=== PATIENT | female | born 1965 | race Caucasian/White ===

== ENCOUNTER 2016-07-08 12:30 | Inpatient (IN) | payer SELFPAY ==
[~2016-07-08] VITALS: Ht 175.3 cm; Wt 64.4 kg
[2016-07-08] MEDS: VITAMIN E 400 INTERNATIONAL UNITS CAP PO SCH (09:00)
[2016-07-08 13:01] LABS: BASO % 0.4 % (0.0-1.0); EOS # 0.2 K/mm3 (0.0-0.50); EOS % 1.6 % (0.0-3.0); LARGE UNSTAINED CELL # 0.2 K/mm3 (0.0-0.4); LARGE UNSTAINED CELL % 2.2 % (0.0-4.0); LYMPH # 2.4 K/mm3 (1.5-4.5); LYMPH % 25.6 % (24.0-44.0); MEAN CORPUSCULAR HEMOGLOBIN 33.4 pg (27.0-33.0); MEAN CORPUSCULAR HGB CONC 34.6 g/dl (32.0-36.5); MEAN CORPUSCULAR VOLUME 96.5 fl (80.0-96.0); MONO # 0.5 K/mm3 (0.0-0.8); MONO % 5.1 % (0.0-5.0); NEUTROPHILS # 6.1 K/mm3 (1.8-7.7); NEUTROPHILS % 65.1 % (36.0-66.0); PLATELET COUNT, AUTOMATED 186 k/mm3 (150-450); RED CELL DISTRIBUTION WIDTH 12.1 % (11.5-14.5); WHITE BLOOD COUNT 9.3 K/mm3 (4.0-10.0)
[2016-07-08 13:08] LABS: INR 0.94
[2016-07-08 13:20] LABS: ANION GAP 11 MEQ/L (8-16); BLOOD UREA NITROGEN 25 MG/DL (7-18); CALCIUM LEVEL 9.5 MG/DL (8.5-10.1); CARBON DIOXIDE LEVEL 27 MEQ/L (21-32); CHLORIDE LEVEL 102 MEQ/L (98-107); CREATININE FOR GFR 1.02 MG/DL (0.55-1.02); GLOMERULAR FILTRATION RATE > 60.0 (>51); GLUCOSE, FASTING 133 MG/DL (70-105); POTASSIUM SERUM 4.2 MEQ/L (3.5-5.1); SODIUM LEVEL 140 MEQ/L (136-145)
--- NOTE | 2016-07-08 13:34 | REP ---
CHEST X-RAY: Single view. HISTORY: CVA less than 4.5 hours. Comparison chest x-ray is from January 11, 2016. FINDINGS: EKG monitoring electrodes overlie the chest. The heart is moderately enlarged unchanged since the prior study of January 11, 2016. Pulmonary vasculature is not increased. Pleural angles are sharp. No infiltrate is seen. IMPRESSION: Moderate cardiomegaly. No evidence of pulmonary edema or pleural effusion. Signed by Isaias Loyd MD 07/08/2016 02:34 P
--- NOTE | 2016-07-08 13:43 | REP ---
CT brain without contrast 07/08/2016 Indication CVA less than 4.5 hours Comparison: CT brain 10/10/2011 The ventricles are of normal size and configuration. There is no intracranial hemorrhage or extra-axial fluid collection. There is no midline shift or mass effect. The skull is without fracture. The right mastoid sinuses are hypoplastic. Visualized portions of the paranasal sinuses and left mastoid sinuses are clear. Impression: no acute intracranial pathology or hemorrhage. Case discussed with Bouchra in ED at 127 pm om 07/08/16, who will give report to Dr. Bahena Signed by Radha Wakefield MD 07/08/2016 01:34 P
[2016-07-08] MEDS ORDERED: ASPIRIN 325 MG TAB As Ordered ONE (14:12)
[2016-07-08] MEDS ORDERED: FURO20TA2 PO (14:40)
[2016-07-08] MEDS ORDERED: NATU400T PO (14:40)
[2016-07-08] MEDS ORDERED: DIGO0.12 PO (14:40)
[2016-07-08] MEDS ORDERED: CARV6.25 PO (14:40)
[2016-07-08] MEDS ORDERED: VITMTA PO (14:40)
[2016-07-08] MEDS ORDERED: CO Q1CAP PO (14:40)
[2016-07-08] MEDS ORDERED: POTA10CA PO (14:40)
[2016-07-08] MEDS ORDERED: SPIR25TA2 PO (14:40)
--- NOTE | 2016-07-08 16:30 | HPEPDOC ---
General Date of Admission 07/08/2016 Chief Complaint The patient is a 50-year-old female admitted with a reason for visit of Stroke Symptoms. Source: Patient, Family History of Present Illness PCP: The only doctor she sees is her service dispatcher in [place] Dr. Mandujano Ms. Torre is a 50-year-old female who states that when she was going to get in the shower this morning at approximately 9 AM she realized that she was unable to figure out how to turn on the shower, and she did not understand why she would suddenly lost this knowledge to do so. At about that same time she realized that her right arm was not working correctly, she had significant weakness in her right hand, especially mat cutter. She then was going to call out to her , but was unable to speak, only noise came out. She states that her mind was working perfectly well, but she was just unable to speak. At this time she was now able to operate the shower, therefore she decided to proceed with a shower noting that she had to use only her left hand for shampoo, as right hand was unable to perform the tasks. After showering, she was still unable to speak , and hoping that this will go away she just went downstairs to watch TV. Fortunately for her, her symptoms did improve, and her right hand had returned to normal, but she still has some aphasia, therefore she was brought to the ED by her and daughter at approximately 12:[address] of the head without contrast was negative, MRI/MRA is pending. Otherwise, she denies any loss of sensation, she denies any gait abnormalities, she denies any lightheadedness or presyncopal symptoms. She does admit to having seen auras for about a half hour while she was here in the ED, but this has now resolved as well. Home Medications Scheduled (Co Q-10) 100 Mg Cap 100 MG PO DAILY (Reported) Alpha Tocopheryl Acid Succinat (Vitamin E) 400 Unit Tab 400 UNIT PO DAILY ( Reported) Carvedilol (Carvedilol) 6.25 Mg Tab 6.25 MG PO BID (Reported) Digoxin (Digoxin) 0.125 Mg Tab 0.125 MG PO QPM (Reported) TAKES AT 1600 Furosemide (Furosemide) 20 Mg Tab 20 MG PO DAILY (Reported) Multivitamins *[facility] STOCKED* (Thera M Plus *[facility] STOCKED*) 1 Tab Tab 1 TAB PO DAILY (Reported) Potassium Chloride (Klor-Con M10) 10 Meq Tabcr 10 MEQ PO DAILY (Reported) Spironolactone (Spironolactone) 25 Mg Tab 25 MG PO DAILY (Reported) Allergies Coded Allergies: No Known Drug Allergy (Unverified Allergy, Unknown, 07/08/16) Past Medical History Medical History The patient is unclear as to the exact name of her medical diagnoses, but she has "cardiomyopathy" and "heart failure". She was told that she had a very low ejection fraction, and she is supposed to get a defibrillator. This was told her in December 2015, she has been trying to get insurance so that she can get a defibrillator since that time. Her most recent echocardiogram was performed at [facility] in December 2015 as well. She has been told in the past that she has any irregular heartbeat. Surgical History Tubal ligation, tonsils Family History Family History She has a brother who also had cardiomyopathy, who had a heart transplant surgery and then at the age of 61. She has a sister who had a stroke at approximately the age of 50. Her father had heart problems as well as lung cancer. 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 Review of Symptoms Constitutional: Denies: Chills, Fever, Night Sweats Eyes: Denies: Pain, Vision change ENT: Denies: Ear Pain, Head Aches Skin: Denies: Breakdown, Lesions, Rash Pulmonary: Denies: Cough, Dyspnea Cardiovascular: Denies: Chest Pain, Lt Headedness, Orthopnea, Palpitations, Paroxysmal Noc. Dyspnea Gastrointestinal: Denies: Abdominal Pain, Diarrhea, Nausea, Vomiting Neurological: Reports: Change in speech (she was completely aphasic this morning. Now she can speak fairly well, but does have difficulty finding words) , Weakness (in the right hand), Denies: Confusion, Numbness, Seizures Psych: Reports: Mood Normal, Denies: Depression, Memory Issues Physical Examination General Exam: Positive: Alert, Cooperative, No Acute Distress Eye Exam: Positive: Conjunctiva & lids normal, EOMI, PERRLA, Negative: Sclera icteric ENT Exam: Positive: Atraumatic, Mucous membr. moist/pink, Nares Patent, Pharynx Normal, Tongue Midline Neck Exam: Positive: Supple, Negative: JVD, thyromegaly Chest Exam: Positive: Clear to auscultation, Normal air movement Heart Exam: Positive: Normal S1, Normal S2, Other (she does have a lateral chest wall heave), Rate Normal, Regular Rhythm (with multiple PVCs), Negative: Murmurs, Rubs Telemetry: Positive: No significant arrhythmia Abdomen Exam: Positive: Normal bowel sounds, Soft, Negative: Hepatospenomegaly Extremity Exam: Positive: Normal pulses, Negative: Clubbing, Cyanosis, Edema Skin Exam: Positive: Nl turgor and temperature, Negative: Breakdown, Lesion Neuro Exam: Positive: Other (finger to nose and heel to rockwell are appropriate. Visual garcia are intact to confrontation. Extraocular movements are intact. Pupils are equally reactive to light and accommodation. Tongue is midline. Cranial nerves II through XII are normal. She does not have a pronator drift. Babinski's are absent. Muscle strength is 5 out of 5 in all extremities, and sensation is intact throughout.), Reflexes 2+ (in the triceps, brachioradialis, biceps, patellar bilaterally.), Negative: Normal Speech (approximately 80-90% of her words are clear and accurate, however occasionally she has difficulty finding a word.) Psych Exam: Positive: Memory Intact, Mental status NL, Mood NL, Oriented x 3, Negative: Anxiety Vital Signs Blood pressure is 112/91, pulse 80, respirations 18, temperature 97.4, pulse ox 97% on room air, weight 65 kg, height 5 feet 9 inches, BMI 21 Laboratory Data Labs 24H Laboratory Tests 2 07/08/16 12:50: Activated Partial Thromboplast Time 24.7L, Anion Gap 11, White Blood Count 9.3, Red Blood Count 4.96, Hemoglobin 16.6H, Hematocrit 47.9H, Mean Corpuscular Volume 96.5H, Mean Corpuscular Hemoglobin 33.4H, Mean Corpuscular Hemoglobin Concent 34.6, Red Cell Distribution Width 12.1, Platelet Count 186, Neutrophils (%) (Auto) 65.1, Lymphocytes (%) (Auto) 25.6, Monocytes (%) (Auto) 5.1H, Eosinophils (%) (Auto) 1.6, Basophils (%) (Auto) 0.4, Neutrophils # (Auto) 6.1, Lymphocytes # (Auto) 2.4, Monocytes # (Auto) 0.5, Eosinophils # (Auto) 0.2, Basophils # (Auto) 0.0, Blood Urea Nitrogen 25H, Creatinine 1.02, Sodium Level 140, Potassium Level 4.2, Chloride Level 102, Carbon Dioxide Level 27, Calcium Level 9.5, Glomerular Filtration Rate > 60.0, Large Unclassified Cells # 0.2, Large Unclassified Cells % 2.2, Prothromb Time International Ratio 0.94, Prothrombin Time 12.7 07/08/16 13:04: Bedside Glucose (Misc Panel) 127H CBC/BMP Laboratory Tests 07/08/16 12:50 Calcium Level 9.5, Red Blood Count 4.96, Mean Corpuscular Volume 96.5 H, Mean Corpuscular Hemoglobin 33.4 H, Mean Corpuscular Hemoglobin Concent 34.6, Red Cell Distribution Width 12.1, Neutrophils (%) (Auto) 65.1, Lymphocytes (%) (Auto ) 25.6, Monocytes (%) (Auto) 5.1 H, Eosinophils (%) (Auto) 1.6, Basophils (%) ( Auto) 0.4, Neutrophils # (Auto) 6.1, Lymphocytes # (Auto) 2.4, Monocytes # (Auto ) 0.5, Eosinophils # (Auto) 0.2, Basophils # (Auto) 0.0 Assessment/Plan Problems: (1) Aphasia Status: Acute (2) CVA (cerebral vascular accident) Status: Acute (3) Cardiomyopathy Status: Chronic (4) Heart failure Status: Chronic Plan / VTE VTE Prophylaxis Ordered?: Yes (teds and sequentials) Plan Plan Will admit the patient to PCU for cardiac monitoring. As she is not taking aspirin at home we will start her on 81 mg daily, she already received 325 [address] in the ED[address] without contrast was negative, MRI/MRA is pending, will order an echocardiogram, and start her on a statin. Coagulopathy studies have been ordered as well as she is younger than 60 years old. She is on spironolactone, potassium, digoxin, carvedilol, and furosemide at home, and we will keep her on all of herhome medications, as these medications are really for her heart failure and cardiomyopathy rather than for their antihypertensive properties, and she appears to be very well compensated at this time. GME ATTESTATION GME ATTESTATION My preceptor for this patient encounter was physically present in the building during the encounter and was fully available. As needed, all aspects of the patient interview, examination, medical decision making process, and medical care plan development were reviewed and approved by the preceptor. Preceptor is aware and concurs with the plan as stated in the body of this note and will attest to such by his/her cosignature. STACEY HUANG DO Jul 08, 2016 16:30
--- NOTE | 2016-07-08 16:44 | REP ---
MRA BRAIN WITHOUT CONTRAST: HISTORY: Infarction. 3D [id number] MR angiography was performed at the level of the [place]. An aneurysm is present arising from the left internal carotid artery at the origin of the left ophthalmic artery. The aneurysm measures 3.1 x 3.9 mm. The aneurysm projects superior from the left internal carotid artery. There is no other aneurysm or arteriovenous malformation. There are no atherosclerotic lesions. Major intracranial vessels are patent. The left vertebral artery is dominant. 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 Signed by Simeon Moya MD 07/08/2016 04:56 P
--- NOTE | 2016-07-08 16:59 | REP ---
MRI BRAIN WITHOUT CONTRAST: HISTORY: Infarction. COMPARISON: CT 07/08/2016. A very small focus of increased signal intensity on diffusion weighted images is present in the posterior left parietal lobe. This is decreased in signal intensity on ADC images and is consistent with an acute infarction. Several punctate areas of increased signal intensity on T2-weighted images are present in the subcortical white matter. This represents small vessel ischemic disease. There is no intraparenchymal hemorrhage, mass or midline shift. The ventricular system is normal in appearance. There is no extracerebral collection. Mucosal thickening is present in the left ethmoid, maxillary and sphenoid sinuses. IMPRESSION: 1. Small acute left parietal lobe infarction. 2. Minimal small vessel ischemic disease. Signed by Simeon Moya MD 07/08/2016 05:10 P
--- NOTE | 2016-07-08 17:17 | REP ---
MRA CAROTIDS WITHOUT AND WITH CONTRAST: HISTORY: Infarction. CONTRAST: ProHance 25 ml. Unenhanced 2D TOF and contrast MR angiography were performed at the level of the carotid bifurcations. The distal common carotid arteries and origins of the external and the internal carotid arteries are normal. The vertebral arteries are patent. The left vertebral artery is dominant. There are no atherosclerotic lesions. An aneurysm is present arising from the left internal carotid artery at the origin of the left ophthalmic artery. The aneurysm measures 3.1 x 3.9 mm. IMPRESSION: 1. There is no carotid stenosis. 2. 3.9 mm left ophthalmic artery aneurysm. Signed by Simeon Moya MD 07/08/2016 05:18 P
[2016-07-08 17:35] VITALS: BP 109/83
--- NOTE | 2016-07-08 18:13 | EDDOCDS ---
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 aslo drooling. The srm last date and time the patient was known to be well was was at 09:00 on July 08, 2016. 12:34 Acuity: CARMELA Level 2 srm 12:37 impaired speech and drooling. gait steady moves all extremities. Adult Sepsis srm Screening: The patient does not have new or worsening altered mentation. Patient's respiratory rate is less than 22. Systolic blood pressure is greater than 100. Patient has a qSOFA score of 0- Negative Sepsis Screen. Suicide/Homicide risk assessment- the patient denies having any suicidal and/or homicidal ideations and does not present with any other emotional, behavioral or mental health complaints. Status: Patient is not a telephone service adviser or dependent. Transition of care: patient was not received from another setting of care. 12:37 Method Of Arrival: Walkin/Carried/Asstd [facility] 17:37 Pre-hospital glucose is not applicable to this patient. ja5 Triage Assessment: 12:42 The onset of the patients symptoms was more than three hours ago. General: Appears in srm no apparent distress, Behavior is appropriate for age, cooperative. Pain: Denies pain. Neurological: Level of Consciousness is awake, alert, Oriented to person, place, time, Moves all extremities. Full function Gait is steady, Facial symmetry appears normal, Reports no additional symptoms. 12:43 HIV screening NA for this visit Offered previously. 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 Klor-Con 10 10 mEq Oral TbER 1 tab once daily (Last dose: 07/08/2016 08:30) 2. spironolactone 25 mg Oral tab 1 tab once daily (Last dose: 07/08/2016 08:30) 3. digoxin 125 mcg Oral tab 1 tab once daily (Last dose: 07/07/2016 16:00) 4. carvedilol 6.25 mg oral tab 1 tab 2 times per day (Last dose: 07/08/2016 08:30) 5. furosemide 20 mg Oral tab 1 tab once daily (Last dose: 07/08/2016 08:30) - PMHx: cardiomyopathy; - PSHx: Tubal ligation; - The history from nurses notes was reviewed: and I agree with what is documented. - Social history: Smoking status: Patient uses tobacco products, current every day smoker. No barriers to communication noted, The patient speaks fluent Gren[place], Speaks appropriately for age. - : The pt / caregiver states he / she is not on anticoagulants. Home medication list is obtained from the patient. - Hospitalizations: : No recent hospitalization is reported. - Exposure Risk Screening:: None identified. - Immunization history:: All immunizations up-to-date. - Family history: Pertinent for heart disease. 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 Screenin:35 Screening information is obtained from the patient. Fall risk: At risk due to Stroke ja5 symptoms. Fall risk: At risk due to medical condition. Assistance ADL's: requires no assistance with activities of daily living. Abuse/DV Screen: The patient / caregiver reports he/she is: not in a situation that causes fear, pain or injury. Nutritional screening: On no prescribed diet. Advance Directives: Currently, there is no health care proxy. There is no active DNR order. There is no living will. home support is adequate. Assessment: 13:10 General: Appears in no apparent distress, Behavior is anxious. Pain: Denies pain. ja5 Neurological: Level of Consciousness is awake, alert, obeys commands, Oriented to person, place, time, De Alcoholizer are equal bilaterally Moves all extremities. Full function Speech is slurred, Facial droop on right, Pupils are PERRLA. Cardiovascular: Capillary refill < 3 seconds Heart tones S1 S2 present Rhythm is sinus rhythm with unifocal PVCs. Respiratory: Airway is patent Breath sounds are clear bilaterally. Derm: Skin is pink, warm & dry. Skin temperature is warm. 14:00 General: Appears in no apparent distress. Neurological: Level of Consciousness is jc4 awake, alert, Oriented to person, place, time, Speech speech remains slurred at time, but is improved. Color pink, skin warm and dry. Respirations easy and full. Family members at bedside. 14:20 General: Pt sitting up on stretcher, conversing with daughters. Pt given Aspirin. jc4 Tolerated sips of water without difficulty. Color pink, skin warm and dry. Respirations easy and full. Saline lock in place. 15:15 General: Appears in no apparent distress, Behavior is appropriate for age, cooperative. jc4 Pain: Denies pain. Neurological: Level of Consciousness is awake, alert, Oriented to person, place, time, De Alcoholizer are equal bilaterally Moves all extremities. Speech is slurred, Pupils are PERRLA. Respiratory: Airway is patent Respiratory effort is even, unlabored, Respiratory pattern is regular, symmetrical. Derm: Skin is pink, warm & dry. 16:55 General: Pt sitting on stretcher, returned from MRI at this time. Pt alert, oriented. jc4 Color pink, skin warm and dry. Respirations easy and full. Pt made aware has room in PCU. . 17:07 General: Dr. Arenas in to see patient at this time. . ja5 17:38 General: Appears in no apparent distress, Behavior is appropriate for age, cooperative. ja5 Pain: Denies pain. Neurological: Level of Consciousness is awake, alert, obeys commands, Oriented to person, place, time, De Alcoholizer are equal bilaterally Moves all extremities. Full function Speech slight slurring but has improved since arrival.. Facial symmetry appears normal, Pupils are PERRLA. Cardiovascular: Rhythm is sinus rhythm No ectopy. Respiratory: Airway is patent Respiratory effort is even, unlabored, Respiratory pattern is regular, symmetrical. Derm: Skin is pink, warm & dry. Skin temperature is warm. 18:11 General: Appears in no apparent distress, Behavior is crying. Neurological: Level of jc4 Consciousness is awake, alert. Respiratory: Airway is patent Respiratory effort is even, unlabored, Respiratory pattern is regular, symmetrical. Derm: Skin is pink, warm & dry. Vital Signs: 12:32 BP 134 / 91; Pulse 110; Resp 18 S; Temp 97.4(O); Pulse Ox 98% on R/A; Weight 62.6 kg gr2 (R); Height 5 ft. 9 in. (175.26 cm) (R); Pain 4/10; 12:41 BP 125 / 87 (auto/); jc4 12:43 Pulse 100 MON; Pulse Ox 96% ; jc4 13:05 BP 115 / 78 (auto/); jc4 13:07 Pulse 90 MON; Pulse Ox 95% ; jc4 13:10 Pulse 96 MON; Pulse Ox 97% ; jc4 13:11 BP 128 / 105 (auto/); jc4 13:13 BP 112 / 91 (auto/); jc4 13:13 Pulse 80 MON; jc4 13:24 Weight 65.32 kg (M); ja5 14:19 Pulse 68 MON; Pulse Ox 95% ; ja5 14:19 Resp 13 S; ja5 14:20 BP 158 / 85 (auto/); ja5 14:25 BP 143 / 83 (auto/); ja5 14:25 Pulse 54 MON; Pulse Ox 94% ; ja5 14:55 BP 122 / 93 (auto/); ja5 14:55 Pulse 92 MON; Pulse Ox 96% ; ja5 15:10 BP 133 / 101 (auto/); ja5 15:10 Pulse 82 MON; Pulse Ox 95% ; ja5 15:24 Pulse 66 MON; Pulse Ox 96% ; ja5 15:25 BP 156 / 110 (auto/); ja5 15:41 Pulse 60 MON; ja5 16:43 BP 102 / 86 (auto/); ja5 17:13 BP 121 / 83 (auto/); ja5 17:13 Pulse 90 MON; Pulse Ox 95% ; ja5 17:22 Pulse 88 MON; Pulse Ox 95% ; ja5 17:32 BP 109 / 83; Pulse 88; Resp 15; Temp 97.7(T); Pulse Ox 95% on R/A; Pain 0/10; ja5 17:42 Pulse 76 MON; Pulse Ox 96% ; jc4 17:43 BP 124 / 75 (auto/); jc4 13:24 Body Mass Index 21.26 (65.32 kg, 175.26 cm) ja5 Vitals: 12:32 Log In Time: July 08, 2016 at 12:32. RN notified that patient meets Red Flag gr2 criteria. 13:06 Glucose Measurement 127 mg/dl. Dr. Josef patel. jc4 ED Course: 12:31 Patient visited by Rivera Greene. gr2 12:31 No Pcp is Private Physician. gr2 12:31 Patient moved to Waiting gr2 12:34 Patient visited by Rivera Greene. gr2 12:34 Patient moved to Pre RCE gr2 12:35 Elena Chatterjee, RN is Primary Nurse. srm 12:35 Triage Initiated srm 12:35 Patient moved to 14 srm 12:38 Lj Bahena MD is Attending Physician. pc 12:50 Patient visited by Libia Davila PCA. ct3 12:50 Accompanied by Family Member, Patient has correct armband on for positive ct3 identification. Placed in gown. Bed in low position. Call light in reach. Side rails up X2. monitoring specialist on. Pulse ox on. NIBP on. 12:50 EKG done. (by ED staff). Reviewed by Lj Bahena MD. ct3 12:53 Basic Metabolic Profile Sent. ja5 12:53 CBC with Diff Sent. ja5 12:53 Partial Thromboplastin Time Sent. ja5 12:53 Prothrombin Time Profile\E\INR Sent. ja5 12:53 Type & Screen Sent. ja5 13:06 Patient visited by Lj Bahena MD. pc 13:15 Inserted peripheral IV: in left antecubital area. ja5 13:25 Patient moved to 4 ja5 13:58 [facility] Payment Agreement was scanned into [employer] and attached to record. mm15 14:04 Patient visited by Libia Davila PCA. ct3 14:04 Chest, 1 View Returned. EDMS 14:04 CT Head Without Contrast Returned. EDMS 14:38 Won Reid is Hospitalizing Provider. pc 17:27 -MRA-Brain without contrast Returned. EDMS 17:27 -MRI-Brain without Returned. EDMS 17:27 MRA CAROTID W/O FOL WITH Returned. EDMS 17:37 No procedures done that require assistance. ja5 17:38 The patient / caregiver is instructed regarding the plan of care and ED course. ja5 18:03 Patient visited by Libia Davila PCA. ct3 18:03 Diet: Patient given regular meal. ct3 Administered Medications: 14:20 Drug: Aspirin 325 mg [aspirin 325 mg tablet (1 tabs)] Route: PO; jc4 Order Results: Lab Order: Basic Metabolic Profile; SPEC'M 07/08/16 12:50 Test: GLUCOSE, FASTING; Value: 133; Range: 70-105; Abnormal: Above high normal; Units: MG/DL; Status: F Test: BLOOD UREA NITROGEN; Value: 25; Range: 7-18; Abnormal: Above high normal; Units: MG/DL; Status: F Test: CREATININE FOR GFR; Value: 1.02; Range: 0.55-1.02; Units: MG/DL; Status: F Test: GLOMERULAR FILTRATION RATE; Value: > 60.0; Range: >51; Status: F Test: SODIUM LEVEL; Value: 140; Range: 136-145; Units: MEQ/L; Status: F Test: POTASSIUM SERUM; Value: 4.2; Range: 3.5-5.1; Units: MEQ/L; Status: F Test: CHLORIDE LEVEL; Value: 102; Range: 98-107; Units: MEQ/L; Status: F Test: CARBON DIOXIDE LEVEL; Value: 27; Range: 21-32; Units: MEQ/L; Status: F Test: ANION GAP; Value: 11; Range: 8-16; Units: MEQ/L; Status: F Test: CALCIUM LEVEL; Value: 9.5; Range: 8.5-10.1; Units: MG/DL; Status: F Test Note: ; Units are mL/min/1.73 m2 Chronic Kidney Disease Staging per NKF: Stage I & II GFR >=60 Normal to Mildly Decreased Stage III GFR 30-59 Moderately Decreased Stage IV GFR 15-29 Severely Decreased Stage V GFR <15 Very Little GFR Left ESRD GFR <15 on GAS LINE REPAIRER Lab Order: CBC with Diff; SPEC'M 07/08/16 12:50 Test: WHITE BLOOD COUNT; Value: 9.3; Range: 4.0-10.0; Units: K/mm3; Status: F Test: RED BLOOD COUNT; Value: 4.96; Range: 4.00-5.40; Units: M/mm3; Status: F Test: HEMOGLOBIN; Value: 16.6; Range: 12.0-16.0; Abnormal: Above high normal; Units: g/dl; Status: F Test: HEMATOCRIT; Value: 47.9; Range: 36.0-47.0; Abnormal: Above high normal; Units: %; Status: F Test: MEAN CORPUSCULAR VOLUME; Value: 96.5; Range: 80.0-96.0; Abnormal: Above high normal; Units: fl; Status: F Test: MEAN CORPUSCULAR HEMOGLOBIN; Value: 33.4; Range: 27.0-33.0; Abnormal: Above high normal; Units: pg; Status: F Test: MEAN CORPUSCULAR HGB CONC; Value: 34.6; Range: 32.0-36.5; Units: g/dl; Status: F Test: RED CELL DISTRIBUTION WIDTH; Value: 12.1; Range: 11.5-14.5; Units: %; Status: F Test: PLATELET COUNT, AUTOMATED; Value: 186; Range: 150-450; Units: k/mm3; Status: F Test: NEUTROPHILS %; Value: 65.1; Range: 36.0-66.0; Units: %; Status: F Test: LYMPH %; Value: 25.6; Range: 24.0-44.0; Units: %; Status: F Test: MONO %; Value: 5.1; Range: 0.0-5.0; Abnormal: Above high normal; Units: %; Status: F Test: EOS %; Value: 1.6; Range: 0.0-3.0; Units: %; Status: F Test: BASO %; Value: 0.4; Range: 0.0-1.0; Units: %; Status: F Test: LARGE UNSTAINED CELL %; Value: 2.2; Range: 0.0-4.0; Units: %; Status: F Test: NEUTROPHILS #; Value: 6.1; Range: 1.8-7.7; Units: K/mm3; Status: F Test: LYMPH #; Value: 2.4; Range: 1.5-4.5; Units: K/mm3; Status: F Test: MONO #; Value: 0.5; Range: 0.0-0.8; Units: K/mm3; Status: F Test: EOS #; Value: 0.2; Range: 0.0-0.50; Units: K/mm3; Status: F Test: BASO #; Value: 0.0; Range: 0.0-0.2; Units: K/mm3; Status: F Test: LARGE UNSTAINED CELL #; Value: 0.2; Range: 0.0-0.4; Units: K/mm3; Status: F Lab Order: Partial Thromboplastin Time; [facility]' 07/08/16 12:50 Test: PARTIAL THROMBOPLASTIN TIME; Value: 24.7; Range: 26.6-37.1; Abnormal: Below low normal; Units: SECONDS; Status: F Lab Order: Prothrombin Time Profile\E\INR; [facility]' 07/08/16 12:50 Test: PROTHROMBIN TIME; Value: 12.7; Range: 12.3-14.5; Units: SECONDS; Status: F Test: INR; Value: 0.94; Status: F Test Note: ; THERAPUTIC HUMAN INR VALUES INDICATIONS NORMAL RANGES PROPHYLAXIS/TREATMENT OF: VENOUS THROMBOSIS 2.0-3.0 PULMONARY EMBOLISM 2.0-3.0 PREVENTION OF SYSTEMIC EMBOLISM FROM: TISSUE HEART VALVES 2.0-3.0 ACUTE MYOCARDIAL INFARCTION 2.0-3.0 VALVULAR HEART DISEASE 2.0-3.0 ATRIAL FIBRILLATION 2.0-3.0 MECHANICAL VALVES(HIGH RISK) 2.5-3.5 RECURRENT MYOCARDIAL INFARCTION 2.5-3.5 Lab Order: Type & Screen; [facility] 07/08/16 12:50 Test: BLOOD TYPE; Value: A POS; Status: F Test: AB SCREEN (INDIRECT CARO)GEL; Value: NEGATIVE; Status: F Lab Order: Fingerstick Blood Sugar; [facility] 07/08/16 13:04 Test: BEDSIDE GLUCOSE; Value: 127; Range: 70-105; Abnormal: Above high normal; Units: MG/DL; Status: F Test Note: ; Doctor Notified Radiology Order: CT Head Without Contrast Test: CT Head Without Contrast REASON FOR EXAMINATION: CVA <4.5hrs; CT brain without contrast 07/08/2016; ; Indication CVA less than 4.5 hours; ; Comparison: CT brain 10/10/2011; ; The ventricles are of normal size and configuration. There is no intracranial; hemorrhage or extra-axial fluid collection. There is no midline shift or mass; effect.; ; The skull is without fracture. The right mastoid sinuses are hypoplastic.; Visualized portions of the paranasal sinuses and left mastoid sinuses are clear.; ; Impression: no acute intracranial pathology or hemorrhage.; ; Case discussed with Bouchra in ED at 127 pm om 07/08/16, who will give report to Dr.; Bahena; ; ; Signed by; Radha Wakefield MD 07/08/2016 01:34 P; Radiology Order: Chest, 1 View Test: Chest, 1 View REASON FOR EXAMINATION: CVA <4.5hrs; CHEST X-RAY:; ; Single view.; ; HISTORY: CVA less than 4.5 hours.; ; Comparison chest x-ray is from January 11, 2016.; ; FINDINGS: EKG monitoring electrodes overlie the chest. The heart is moderately; enlarged unchanged since the prior study of January 11, 2016. Pulmonary vasculature; is not increased. Pleural angles are sharp. No infiltrate is seen.; ; IMPRESSION: Moderate cardiomegaly. No evidence of pulmonary edema or pleural; effusion.; ; ; Signed by; Isaias Loyd MD 07/08/2016 02:34 P; Radiology Order: -MRA-Brain without contrast Test: -MRA-Brain without contrast REASON FOR EXAMINATION: CVA >4.5hrs; MRA BRAIN WITHOUT CONTRAST:; ; HISTORY: Infarction.; ; 3D [id number] MR angiography was performed at the level of the [place]; [place].; ; An aneurysm is present arising from the left internal carotid artery at the; origin of the left ophthalmic artery. The aneurysm measures 3.1 x 3.9 mm. The; aneurysm projects superior from the left internal carotid artery. There is no; other aneurysm or arteriovenous malformation. There are no atherosclerotic; lesions. Major intracranial vessels are patent. 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 This is decreased in signal; intensity on ADC images and is consistent with an acute infarction. Several; punctate areas of increased signal intensity on T2-weighted images are present in; the subcortical white matter. This represents small vessel ischemic disease.; There is no intraparenchymal hemorrhage, mass or midline shift. The ventricular; system is normal in appearance. There is no extracerebral collection. Mucosal; thickening is present in the left ethmoid, maxillary and sphenoid sinuses.; ; IMPRESSION:; ; 1. Small acute left parietal lobe infarction.; ; 2. Minimal small vessel ischemic disease.; ; ; Signed by; Simeon Moya MD 07/08/2016 05:10 P; Radiology Order: MRA CAROTID W/O FOL WITH Test: MRA CAROTID W/O FOL WITH REASON FOR EXAMINATION: CVA >4.5hrs; MRA CAROTIDS WITHOUT AND WITH CONTRAST:; ; HISTORY: Infarction.; ; CONTRAST: ProHance 25 ml.; ; Unenhanced 2D TOF and contrast MR angiography were performed at the level of the; carotid bifurcations. The distal common carotid arteries and origins of the; external and the internal carotid arteries are normal. The vertebral arteries are; patent. The left vertebral artery is dominant. There are no atherosclerotic; lesions. An aneurysm is present arising from the left internal carotid artery at; the origin of the left ophthalmic artery. The aneurysm measures 3.1 x 3.9 mm.; ; IMPRESSION:; ; 1. There is no carotid stenosis.; ; 2. 3.9 mm left ophthalmic artery aneurysm.; ; ; Signed by; Simeon Moya MD 07/08/2016 05:18 P; Outcome: 14:38 Decision to Hospitalize by Provider. 18:10 Discharge Assessment: Patient awake and alert. patient administered narcotics - no. The jc4 following High Risk Discharge criteria are identified: None. Admitted to PCU accompanied by nurse, family with patient, via stretcher, on monitor, with chart. Condition: stable. CT Study completed. MRI Study completed. Admission hand-off: Report Faxed Fax receipt verified by Ana Maria. Property :Personal belongings accompany Pt. 18:12 Patient left the ED. jc4 Signatures: Dispatcher [employer] EDMS Lj Bahena MD MD pc Michelson, Staci, RN RN srm Castle, Jennifer, RN RN jc4 Libia Davila PCA SCHO[employer] OPERATOR ct3 Rivera Greene gr2 Maico León mm15 Elvi Olson,RN RN jose5 Corrections: (The following items were deleted from the chart) 17:33 17:25 Temp 97.7F Oral; ja5 ja5 17:33 17:23 BP 109 / 83 Auto; ja5 ja5 17:33 17:27 Resp 15bpm; Spontaneous; ja5 ja5 MTDD
--- NOTE | 2016-07-08 18:13 | EDDOCDS ---
Physician Documentation [facility] Name: Matilde Torre Age: 50 yrs Sex: Female : 1965 Arrival Date: 07/08/2016 Time: 12:30 Bed 4 Private MD: No Pcp Disposition: 07/08 14:32 Critical Care:. pc Disposition: 07/08/16 14:38 Hospitalization ordered by Won Reid for Inpatient Admission. Preliminary diagnosis is Cerebral infarction due to embolism of other cerebral artery - left hemisphere. - Bed requested for PCU. - Status is Inpatient Admission. jc4 - Condition is Stable. - Problem is new. - Symptoms have improved. HPI: 13:28 This 50 yrs old Female presents to ER via Walkin/Carried/Asstd with pc complaints of S/S of Possible Stroke. 13:28 The history is obtained from the patient. A reliable history and/or examination was not pc able to be obtained, due to dysarthria. 13:41 At 9am this morning, she was alone in her home and was trying to take a shower when she pc suddenly could not use her right arm properly: it felt weak and numb and she could not operate the shower controls. She then noticed she could not speak properly, stating she could not get any words out initially, and then the wrong words were spoken. She contacted her spouse much later and he brought her here, 3.5 hours after symptom onset. She says her speech is improved, now having dysarthria but no aphasia. She also says her right arm is feeling better, is no longer numb and she is not dropping things. She denies any headache, nausea or vomiting, chest pain or any other symptoms. At their worst, the symptoms were severe. In the emergency department, the symptoms are moderate. The patient has not experienced similar symptoms in the past. The patient has been recently seen by a tester compressed gases. Historical: - Allergies: no known allergies; - Home Meds: 1. Klor-Con 10 10 mEq Oral TbER 1 tab once daily (Last dose: 07/08/2016 08:30) 2. spironolactone 25 mg Oral tab 1 tab once daily (Last dose: 07/08/2016 08:30) 3. digoxin 125 mcg Oral tab 1 tab once daily (Last dose: 07/07/2016 16:00) 4. carvedilol 6.25 mg oral tab 1 tab 2 times per day (Last dose: 07/08/2016 08:30) 5. furosemide 20 mg Oral tab 1 tab once daily (Last dose: 07/08/2016 08:30) - PMHx: cardiomyopathy; - PSHx: Tubal ligation; - The history from nurses notes was reviewed: and I agree with what is documented. - Social history: Smoking status: Patient uses tobacco products, current every day smoker. No barriers to communication noted, The patient speaks fluent Mongolian, Speaks appropriately for age. - : The pt / caregiver states he / she is not on anticoagulants. Home medication list is obtained from the patient. - Hospitalizations: : No recent hospitalization is reported. - Exposure Risk Screening:: None identified. - Immunization history:: All immunizations up-to-date. - Family history: Pertinent for heart disease. 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 pc Exam: 13:41 General Appearance: no acute distress, alert. pc 13:41 EENT: normal eye inspection, ears, nose and throat normal, pharynx normal, mucous membranes moist 13:41 Neck: The exam reveals no acute abnormalities. ROM is normal and painless. No nuchal rigidity is noted.. 13:41 Respiratory: no respiratory distress, normal breath sounds. 13:41 CVS: regular pulse rate, regular rhythm, normal S1 and S2, no murmurs, strong peripheral pulses. 13:41 Abdomen: soft, non-tender, no organomegaly, normal bowel sounds. 13:41 Back: normal inspection. 13:41 Skin: skin color is normal, warm, dry. 13:41 Extremities: The extremities have a grossly normal appearance, are non-tender, without acute ROM abnormalities. 13:41 Neuro: oriented x 3, cranial nerves normal except for a facial droop noted on right, Speech is dysarthric. Vital Signs: 12:32 BP 134 / 91; Pulse 110; Resp 18 S; Temp 97.4(O); Pulse Ox 98% on R/A; Weight 62.6 kg / gr2 138.01 lbs (R); Height 5 ft. 9 in. (175.26 cm) (R); Pain 4/10; 12:41 BP 125 / 87 (auto/); jc4 12:43 Pulse 100 MON; Pulse Ox 96% ; jc4 13:05 BP 115 / 78 (auto/); jc4 13:07 Pulse 90 MON; Pulse Ox 95% ; jc4 13:10 Pulse 96 MON; Pulse Ox 97% ; jc4 13:11 BP 128 / 105 (auto/); jc4 13:13 BP 112 / 91 (auto/); jc4 13:13 Pulse 80 MON; jc4 13:24 Weight 65.32 kg / 144.01 lbs (M); ja5 14:19 Pulse 68 MON; Pulse Ox 95% ; ja5 14:19 Resp 13 S; ja5 14:20 BP 158 / 85 (auto/); ja5 14:25 BP 143 / 83 (auto/); ja5 14:25 Pulse 54 MON; Pulse Ox 94% ; ja5 14:55 BP 122 / 93 (auto/); ja5 14:55 Pulse 92 MON; Pulse Ox 96% ; ja5 15:10 BP 133 / 101 (auto/); ja5 15:10 Pulse 82 MON; Pulse Ox 95% ; ja5 15:24 Pulse 66 MON; Pulse Ox 96% ; ja5 15:25 BP 156 / 110 (auto/); ja5 15:41 Pulse 60 MON; ja5 16:43 BP 102 / 86 (auto/); ja5 17:13 BP 121 / 83 (auto/); ja5 17:13 Pulse 90 MON; Pulse Ox 95% ; ja5 17:22 Pulse 88 MON; Pulse Ox 95% ; ja5 17:32 BP 109 / 83; Pulse 88; Resp 15; Temp 97.7(T); Pulse Ox 95% on R/A; Pain 0/10; ja5 17:42 Pulse 76 MON; Pulse Ox 96% ; jc4 17:43 BP 124 / 75 (auto/); jc4 13:24 Body Mass Index 21.26 (65.32 kg, 175.26 cm) ja5 MDM: 12:43 RN interventions must not delay CT ordered. pc 12:43 Anesthesiologist/Physician/Pulse Ox/q 15 min VS ordered. pc 12:43 Accucheck ordered. pc 12:43 IV Saline Lock ordered. pc 12:43 Neuro VS q 15 Minutes ordered. pc 12:43 Patient must be on CC stretcher and weighed via bed scale ordered. pc 12:43 Rhythm Strip to chart ordered. pc 12:43 Stroke assessment pack to bedside ordered. pc 12:44 Basic Metabolic Profile Ordered. EDMS 12:44 CBC with Diff Ordered. EDMS 12:44 Partial Thromboplastin Time Ordered. EDMS 12:44 Prothrombin Time Profile\E\INR Ordered. EDMS 12:44 Chest, 1 View Ordered. EDMS 12:44 ECG WITH READING ER PHYS+CARDIAG ordered. EDMS 12:44 Type & Screen Ordered. EDMS 12:45 CT Head Without Contrast Ordered. EDMS 13:13 Fingerstick Blood Sugar Ordered. EDMS 13:26 ED course: Her CT was not read before 1:30pm, which places her over 4.5 hours from pc symptom onset, and she is not a candidate for thrombolytics . 13:34 Basic Metabolic Profile Reviewed. pc 13:34 CBC with Diff Reviewed. pc 13:34 Partial Thromboplastin Time Reviewed. pc 13:34 Fingerstick Blood Sugar Reviewed. pc 13:34 Prothrombin Time Profile\E\INR Reviewed. pc 13:34 Type & Screen Reviewed. pc 13:38 ED course: CT read at 1:33pm. Call to [facility] Stroke attending attempted but she is on pc another call, so transfer center to call back when available. 13:53 Type & Screen Reviewed. pc 13:57 Financial registration complete. mm15 13:58 [facility] Payment Agreement was scanned into [employer]umia and attached to record. mm15 14:07 Aspirin 325 mg PO once ordered. pc 14:07 BED REQUEST+ADM ordered. EDMS 14:30 MRI Screening Tool - Place on chart, inform RN ordered. pc 14:31 -MRA-Brain without contrast Ordered. EDMS 14:32 -MRI-Brain without Ordered. EDMS 14:32 Differential Diagnosis: CVA, resolving. Plan: CT, labs, EKG, CXR, d/w Stroke Center. pc Data reviewed: old medical records, vital signs, nurses notes, EKG(s), lab test results, all radiology studies and available results. Test interpretation: LAB - all labs as ordered have been reviewed, interpreted and considered in the overall management of the clinical presentation; X-RAY - interpreted by Radiologist and personally reviewed, 1 view chest CM interpreted by Radiologist and personally reviewed, discussed with Radiologist, Head CT; no acute disease. The patient has been re-examined and re-evaluated. The patient's symptoms have markedly improved after treatment, with her speech now much more clear and she is talking in 6-7 word sentences. Physician consultation: Dr. Vargas was contacted at 13:45, regarding patient's condition, and she advises that the patient is outside of the thrombolytic window and is not a candidate for intravascular interventions. She can be transferred to [facility] if the patient chooses but otherwise could be worked up at [facility]. The patient chooses to stay at [facility]. 14:32 Physician consultation: Dr. Bree Arenas regarding patient's condition, and advises pc the medications/treatment as provided. 14:32 Physician consultation: Dr. Won Reid regarding admission. Disposition: The historical pc points, examination findings, and any diagnostic results supporting the provided diagnosis, were discussed with the patient or legal guardian. The need for further work-up and/or treatment in the hospital was explained. 14:37 MRA CAROTID W/O FOL WITH Ordered. EDMS 14:38 Test interpretation: EKG. pc 14:56 MRI Screening Tool - Place on chart, inform RN complete. lbd 15:29 Admission / Observation Status ordered. EDMS 15:38 ECHOCARD,DOPPLER/COLOR FLOW ordered. EDMS 15:39 REGULAR DIET ordered. EDMS 15:39 CARDIAC MARKER PANEL Ordered. EDMS 15:39 CARDIAC MARKER PANEL Ordered. EDMS 15:39 ANTINUCLEAR ANTIBODIES Ordered. EDMS 15:39 Lupus Type Anticoagulant Ordered. EDMS 15:40 ANTI-CARDIOLIPIN ANTIBODIES Ordered. EDMS 15:40 ANTI-NEUTROPHIL CYTOPLASMIC AB Ordered. EDMS 15:40 ANTI-SJOGRENS A & B ANTIBODIES Ordered. EDMS 15:40 ERYTHROCYTE SEDIMENTATION RATE Ordered. EDMS 15:40 C REACTIVE PROTEIN QUANTITATIV Ordered. EDMS 15:40 PROTEIN C ANTIGEN Ordered. EDMS 15:40 PROTEIN S ANTIGEN(TOT&FREE) Ordered. EDMS 15:40 ANTI THROMBIN 3 PANEL (AG/AC) Ordered. EDMS 15:41 HOMOCYSTEINE Ordered. EDMS 15:41 FACTOR V LEIDEN Ordered. EDMS 15:41 FACTOR II PROTHROMBIN GENE AN Ordered. EDMS EC:38 Rate is 95 beats/min. Rhythm is regular, Sinus tachycardia with Occasional PVCs. QRS is pc negative in leads II, aVF. TN interval is normal. QRS interval is prolonged at 138 msec. QT interval is normal. No Q waves. T waves are Normal. No ST changes noted. Clinical impression: Normal Sinus Rhythm and LAE[employer] LBBB. Administered Medications: 14:20 Drug: Aspirin 325 mg [aspirin 325 mg tablet (1 tabs)] Route: PO; jc4 Critical Care Time: 14:32 Critical care time: Bedside Care: 25 minutes, Consultation: 30 minutes, Family pc Intervention: 15 minutes. Total time: 70 minutes Signatures: Dispatcher [employer] EDMS Lj Bahena MD MD pc Daly, Linda, Legal Recruiter Unit lbd Allison Lee RN RN srm Peters, Mary, RN RN mcp Castle, Jennifer, RN RN jc4 Maico León mm15 The chart was reviewed and I authenticate all verbal orders and agree with the evaluation and treatment provided.Corrections: (The following items were deleted from the chart) 13:25 12:45 ECG WITH READING ER PHYS+CARDIAG ordered. EDMS EDMS 14:33 13:41 Neuro: oriented x 3, cranial nerves normal except for a facial droop noted on pc right, pc 14:37 14:32 MRA-Carotid with contrast+MR ordered. EDMS EDMS Attachments: 13:58 [facility] Payment Agreement mm15 MTDD
[2016-07-08 18:30] VITALS: BP 133/70
[2016-07-08] MEDS: ATORVASTATIN 20 MG TAB PO SCH (20:28)
[2016-07-08] MEDS: CARVedilol 6.25 MG TAB PO SCH (20:28)
[2016-07-08] MEDS: MULTIVITAMINS/MINERALS THERAP 1 TAB PO SCH (20:29)
[2016-07-08 20:51] VITALS: BP 105/55
[2016-07-08] MEDS ORDERED: DIGOXIN 0.125 MG TAB PO SCH (21:00)
[2016-07-08 23:59] VITALS: BP 84/58
[2016-07-09] VITALS (7 sets, daily range): BP systolic 90–125; BP diastolic 55–81
--- NOTE | 2016-07-09 07:57 | ECGEPIP ---
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
[2016-07-09 08:17] LABS: ANION GAP 7 MEQ/L (8-16); BLOOD UREA NITROGEN 24 MG/DL (7-18); CALCIUM LEVEL 8.9 MG/DL (8.5-10.1); CARBON DIOXIDE LEVEL 29 MEQ/L (21-32); CHLORIDE LEVEL 106 MEQ/L (98-107); CREATININE FOR GFR 0.95 MG/DL (0.55-1.02); GLOMERULAR FILTRATION RATE > 60.0 (>51); GLUCOSE, FASTING 85 MG/DL (70-105); POTASSIUM SERUM 4.5 MEQ/L (3.5-5.1); SODIUM LEVEL 142 MEQ/L (136-145)
[2016-07-09] MEDS: ASPIRIN 81 MG CHEW TABLET PO SCH (08:46)
[2016-07-09] MEDS: MULTIVITAMINS/MINERALS THERAP 1 TAB PO SCH (08:47)
[2016-07-09] MEDS: POTASSIUM CHLORIDE 10 MEQ SR TABLET PO SCH (08:47)
[2016-07-09] MEDS: FUROSEMIDE 20 MG TAB PO SCH (08:47)
[2016-07-09] MEDS: CARVedilol 6.25 MG TAB PO SCH ×2 (08:47→20:49)
--- NOTE | 2016-07-09 09:06 | CR ---
DATE OF CONSULTATION: 07/09/2016 REASON FOR CONSULTATION: Suspected stroke. HISTORY OF PRESENTING ILLNESS: Nikole Torre is a right-handed, 50-year-old female with past medical history significant for heart failure and tobacco abuse presenting with the chief complaint of experiencing sudden onset aphasia and right upper extremity weakness with paresthesias around 09:00 a.m. this morning. The patient figured she was having a stroke, but did not want to take any action and decided to rest at home and watch Netflix and wait for her . Later on, the patient's happened to call her and when she picked up she did state that she thought she was having a stroke. The rushed over and brought her to [facility] with his daughter. The patient's symptoms started to improve. Head CT was obtained, but unfortunately was not read for at least an hour. The patient had arrived to [facility] at the hour merari of 3-1/2 hours post onset of stroke symptoms. Her NIH stroke scale was 2 points given for mild aphasia and dysarthria with resolution of weakness and numbness of the upper extremity. The patient states that at the present time she is having occasional episodes of word-finding difficulty. She has never had a transient ischemic attack (TIA) or stroke in the past. She does not take an aspirin at home. She has a sister who had a stroke and intracranial aneurysm at the age of 50. The patient herself had a MRI which shows a small left parietal acute ischemic stroke. Incidental finding on MRA is a left thalamic 3.9 mm non-ruptured aneurysm. I have discussed with the patient and her family that they should contact their primary provider to be referred to Dr. Gonzalo Cruz, [place], [place] practice for further evaluation and management of this aneurysm. The patient was given a 325 mg aspirin in the ER and maintained on 81 mg aspirin daily. She will be admitted for further stroke workup, including labs, telemetry and echocardiogram. ALLERGIES: None. PRESENT MEDICATIONS (home medications include): - Coenzyme Q10 100 mg daily - carvedilol 6.25 mg by mouth twice a day - digoxin 0.125 mg by mouth at bedtime - furosemide 20 mg by mouth daily - potassium chloride 10 mEq by mouth daily - spirolactone 25 mg by mouth daily FAMILY HISTORY: Sister with intracranial aneurysm and stroke at the age of 50. Father passing away after heart transplant due to heart failure. REVIEW OF SYSTEMS: 14-point review of systems obtained and is negative except as per history of present illness (HPI). SOCIAL HISTORY: The patient smokes 10 cigarettes a day, used to smoke 1 pack per day. Denies use of alcohol or illicit drugs. PHYSICAL EXAMINATION: Blood pressure is 112/91. Pulse 80. Respiratory rate 18. Temperature is 97.4 degrees Fahrenheit. Oxygen saturation 97% on room air. Current weight 65 kg. Current height 5 feet 9 inches. The patient is awake, alert, oriented to person, place and time. Speech, language and comprehension are intact. Repetition is intact. Very minimal aphasia is present with occasional stuttering of words and word-finding difficulty. The patient had paraphasic errors in her speech. There is no pronator drift. Pupils are 3 mm round and reactive to light. Extraocular movements are intact in all directions without nystagmus. In addition, V1, V2 and V3 is intact to light touch bilaterally. No facial asymmetry to activation. Palate elevates symmetric. Tongue is midline. No weakness of sternocleidomastoid bilaterally. Hearing subjectively equal to finger rub. Palate elevates symmetrically. No pronator drift. Strength is 5/5 including bilateral deltoids, biceps, triceps, handgrip, and iliopsoas. Deep tendon reflexes are 2+ throughout with Romberg testing deferred. Coordination: Normal [id number], [id number], without any signs of ataxia or dysmetria. ASSESSMENT: 1. Acute left parietal ischemic stroke with residual aphasia and paraphasic errors in speech with resolution of right upper extremity weakness and numbness. Unfortunately, the patient did not receive tPA due to delay within the ER setting. However, her symptoms did improve. Stroke services at [facility] were contacted; however, the doctor acid condenser was not immediately available and the ER on hold for up to 10 minutes and said that they would call back, also delaying decision for tPA. I was contacted well over 4-1/2 hours to discuss the case. PLAN: 1. Discontinue tobacco. 2. Start and continue aspirin 81 mg by mouth daily. Start atorvastatin 20 mg by mouth daily. Telemetry monitoring to be continued. Obtain echocardiogram. Obtain carotid ultrasound. 3. The patient has a 3.9-mm intracranial, non-ruptured left thalamic artery aneurysm. Refer the patient to Dr. Gonzalo Cruz at [facility] for further evaluation and management. 4. The patient should stay in the hospital at least 72 hours for a complete stroke workup and monitoring. History obtained from both the patient, the patient's and daughter. Recommend physical therapy (PT), occupational therapy (OT) and speech therapy. Will continue to follow.
[2016-07-09] MEDS: VITAMIN E 400 INTERNATIONAL UNITS CAP PO SCH (11:55)
[2016-07-09] MEDS: DIGOXIN 0.125 MG TAB PO SCH (17:35)
--- NOTE | 2016-07-09 18:42 | IPN ---
DATE: 07/09/2016 Patient seen and examined. No acute events overnight. Reported speech much improved, almost back to baseline. Reported weakness is also improved, also back to baseline. Denies any fevers, chills, chest pain, pressure, discomfort. Denies any vision change. Denies any chest pain. VITAL SIGNS: Temperature 96.5, pulse 68, respirations 18, blood pressure 102/81, pulse oximetry 96% on room air. LABORATORY DATA: WBC 9.3, hemoglobin and hematocrit 16.6/47.9, platelets 186. Chemistry: Sodium 142, potassium 4.5, chloride 106, bicarbonate 29, BUN 24, creatinine 0.95. Cardiac enzymes negative times three. PHYSICAL EXAMINATION: GENERAL: Patient alert and oriented times three in no acute distress. HEENT: Normocephalic, atraumatic. PULMONARY: Bilaterally clear to auscultation. CARDIAC: Regular rate and rhythm. Normal S1, S2. Telemetry within normal limits. ABDOMEN: Soft, nontender, nondistended. EXTREMITIES: No clubbing, cyanosis, or edema. NEUROLOGIC: Cranial nerves II-XII grossly intact. Right upper and lower extremities only slightly weaker than the left. Patient is right-hand dominant. Able to do all her task and follow commands without any limitations. ASSESSMENT AND PLAN: This is a 50-year-old female patient, smoker, with underlying medical history of cardiomyopathy with questionable congestive heart failure. As per patient with very low ejection fraction, in need of automatic implantable cardioverter-defibrillator (AICD) since December 2015. Sees Dr. Mandujano from [facility]. Has not been able to get her defibrillator due to lack of insurance. Active smoker. Admitted for cerebrovascular accident (CVA). 1. Acute CVA. Neurology consulted. Neurologic checks. Telemetry monitoring. Aspirin, statin. Monitor blood pressure. Coreg. Continue digoxin. Hypercoagulable workup, echocardiogram, MRI, MRA of the brain, MRI of the carotid. Will discuss with Dr. Arenas if loop recorder is indicated. 2. Non-ruptured left thalamic artery aneurysm, 3.[address] Rogers, refer to Dr. Gonzalo Cruz at [facility] for further evaluation and management. 3. Smoking. Smoking cessation. 4. Hypertension. Continue blood pressure medication as ordered. 5. Underlying history of cardiomyopathy with questionable congestive heart failure (CHF). Followup echocardiogram. Unknown ejection fraction. Continue digoxin, Lasix, spironolactone, beta saw, statin, aspirin. 6. Deep vein thrombosis (DVT) prophylaxis. Heparin subcutaneous. Disposition planning: Patient will need to be monitor for 72 hours as per neurology. Physical therapy(PT)/occupational therapy (OT), speech and swallow evaluation appreciated.
[2016-07-09] MEDS: ATORVASTATIN 20 MG TAB PO SCH (20:49)
[2016-07-09] MEDS: HEPARIN SOD (PORCINE) 5000 UNITS/ML VIAL SQ SCH (20:49)
[2016-07-10 01:03] LABS: MAGNESIUM LEVEL 2.1 MG/DL (1.8-2.4); POTASSIUM SERUM 4.1 MEQ/L (3.5-5.1)
[2016-07-10 04:17] VITALS: BP 88/64
[2016-07-10 05:44] LABS: MEAN CORPUSCULAR HEMOGLOBIN 32.5 pg (27.0-33.0); MEAN CORPUSCULAR HGB CONC 33.9 g/dl (32.0-36.5); RED CELL DISTRIBUTION WIDTH 12.1 % (11.5-14.5); WHITE BLOOD COUNT 6.8 K/mm3 (4.0-10.0)
--- NOTE | 2016-07-10 05:47 | ECHO ---
DATE OF PROCEDURE: 07/09/2016 AGE: 50 GENDER: Female REFERRING PHYSICIAN: Dr. Proctor. HEIGHT: 69 inches. WEIGHT: 145 pounds. BODY SURFACE AREA: 1.8 sq m. INPATIENT: PCU Room 3227. INDICATION: Cerebrovascular accident (CVA). History of dilated cardiomyopathy. MEASUREMENTS: 2D MEASUREMENTS: RV - 4.7 cm LV- 7.3 cm Septum - 0.7 cm Posterior wall - 0.8 cm Aortic root - 2.9 cm LA - 4.8 cm LVEF - 5-10% DOPPLER MEASUREMENTS: AV - 0.72 m/s LVOT - 0.56 m/s LVOT - 2.1 cm MV-E: 100 A: 21 EA ratio 4.7 Early mitral deacceleration time 63 ms PV - 0.45 m/s Pulmonary artery acceleration time 92 ms RVSP - 58 mmHg IVC - 2.2 cm COMMENTS: Normal sinus rhythm with occasional to frequent isolated PVCs. Intraventricular conduction disturbance. At least moderately dilated left atrium with huge left ventricle. Moderately dilated right heart chambers. LV wall thickness was decreased. On real-time imaging from the parasternal and apical projections, there appeared to be virtually akinetic septal motion and apex. Other nugent were markedly hypo- to virtually akinetic. Normal-appearing mitral valvular apparatus with "low flow" appearance to leaflet excursion but no posterior systolic buckling. Three equal size aortic cusps of normal thickness and adequate cusp separation but premature cusp closure consistent with reduced forward stroke volume. Aortic root motion was also markedly decreased. Could not rule out apical mural thrombus. No pericardial effusion. Color flow Doppler study taken from the parasternal and projection showed moderately severe mitral and moderately severe to severe tricuspid, moderate pulmonic but no aortic insufficiency. Guided continuous wave Doppler of her aortic valve showed a somewhat low peak systolic velocity certainly against any LV outflow tract obstruction. Pulsed and continuous wave Doppler of her LV inflow tract taken from the apical four-chamber projection showed normal diastolic filling velocities against mitral stenosis. There was a much more prominent early diastolic/passive filling pattern. She also had a very abbreviated early mitral deceleration time in keeping with a restrictive impairment of LV diastolic function. Pulsed and continuous wave Doppler of her pulmonary trunk showed a low peak systolic velocity certainly against right ventricular outflow tract obstruction. Her pulmonary artery acceleration time was abbreviated consistent with an elevated pulmonary vascular resistance. Guided continuous wave Doppler of her tricuspid valve allowed our estimation of her right ventricular systolic pressure (at least moderate to moderately severely increased). At least mildly dilated inferior vena cava with absent respiratory collapse consistent with an elevated central venous pressure of least 15 - 20 mmHg. CONCLUSIONS: Could not rule out apical mural thrombus. Findings in keeping with dilated cardiomyopathy with very severe impairment of global left ventricular systolic function. At least moderately dilated left atrium with Doppler evidence of a restrictive impairment of LV diastolic function in keeping with a significantly elevated mean left atrial pressure. Using Doppler of her pulmonary regurgitation and her dilated IVC, her pulmonary arterial diastolic pressure was at least 35 mmHg. At least moderately dilated right heart chambers with Doppler evidence of moderately severe pulmonary hypertension. Dilated IVC with absent respiratory collapse consistent with a significantly elevated central venous pressure. Normal appearing valvular structures with moderately severe mitral and severe tricuspid insufficiency, likely on the basis of cardiac chamber enlargements and dilated valvular annular rings. 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 [facility]
[2016-07-10 06:01] LABS: ANION GAP 9 MEQ/L (8-16); BLOOD UREA NITROGEN 21 MG/DL (7-18); CALCIUM LEVEL 8.6 MG/DL (8.5-10.1); CARBON DIOXIDE LEVEL 24 MEQ/L (21-32); CHLORIDE LEVEL 107 MEQ/L (98-107); CREATININE FOR GFR 0.83 MG/DL (0.55-1.02); GLOMERULAR FILTRATION RATE > 60.0 (>51); GLUCOSE, FASTING 90 MG/DL (70-105); POTASSIUM SERUM 4.4 MEQ/L (3.5-5.1); SODIUM LEVEL 140 MEQ/L (136-145)
[2016-07-10] MEDS: VITAMIN E 400 INTERNATIONAL UNITS CAP PO SCH (07:59)
[2016-07-10 08:00] VITALS: BP 101/69
[2016-07-10] MEDS: MULTIVITAMINS/MINERALS THERAP 1 TAB PO SCH (08:00)
[2016-07-10] MEDS: SPIRONOLACTONE 25 MG TAB PO SCH (08:00)
[2016-07-10] MEDS: ASPIRIN 81 MG CHEW TABLET PO SCH (08:00)
[2016-07-10] MEDS: POTASSIUM CHLORIDE 10 MEQ SR TABLET PO SCH (08:00)
[2016-07-10] MEDS: HEPARIN SOD (PORCINE) 5000 UNITS/ML VIAL SQ SCH (08:04)
[2016-07-10] MEDS: CARVedilol 6.25 MG TAB PO SCH ×2 (08:08→20:58)
[2016-07-10] MEDS: FUROSEMIDE 20 MG TAB PO SCH ×2 (08:09→12:31)
[2016-07-10 12:00] VITALS: BP 109/82
[2016-07-10] MEDS: ENOXAPARIN 60 MG/0.6 ML SYR (J1650) SC SCH (14:00)
[2016-07-10] MEDS: DIGOXIN 0.125 MG TAB PO SCH (14:46)
[2016-07-10 16:00] VITALS: BP 97/60
[2016-07-10] MEDS ORDERED: DIGOXIN 0.125 MG TAB PO SCH ×2 (16:00→17:00)
[2016-07-10] MEDS ORDERED: SLF 3 ML SYR IV PRN (16:45)
--- NOTE | 2016-07-10 19:13 | EDDOCDS ---
Physician Documentation [facility] Name: Matilde Torre Age: 50 yrs Sex: Female : 1965 Arrival Date: 07/08/2016 Time: 12:30 Bed 4 Private MD: No Pcp Disposition: 07/08 14:32 Critical Care:. pc Disposition: 07/08/16 14:38 Hospitalization ordered by Won Reid for Inpatient Admission. Preliminary diagnosis is Cerebral infarction due to embolism of other cerebral artery - left hemisphere. - Bed requested for PCU. - Status is Inpatient Admission. jc4 - Condition is Stable. - Problem is new. - Symptoms have improved. HPI: 13:28 This 50 yrs old Female presents to ER via Walkin/Carried/Asstd with pc complaints of S/S of Possible Stroke. 13:28 The history is obtained from the patient. A reliable history and/or examination was not pc able to be obtained, due to dysarthria. 13:41 At 9am this morning, she was alone in her home and was trying to take a shower when she pc suddenly could not use her right arm properly: it felt weak and numb and she could not operate the shower controls. She then noticed she could not speak properly, stating she could not get any words out initially, and then the wrong words were spoken. She contacted her spouse much later and he brought her here, 3.5 hours after symptom onset. She says her speech is improved, now having dysarthria but no aphasia. She also says her right arm is feeling better, is no longer numb and she is not dropping things. She denies any headache, nausea or vomiting, chest pain or any other symptoms. At their worst, the symptoms were severe. In the emergency department, the symptoms are moderate. The patient has not experienced similar symptoms in the past. The patient has been recently seen by a production control coordinator. Historical: - Allergies: no known allergies; - Home Meds: 1. Klor-Con 10 10 mEq Oral TbER 1 tab once daily (Last dose: 07/08/2016 08:30) 2. spironolactone 25 mg Oral tab 1 tab once daily (Last dose: 07/08/2016 08:30) 3. digoxin 125 mcg Oral tab 1 tab once daily (Last dose: 07/07/2016 16:00) 4. carvedilol 6.25 mg oral tab 1 tab 2 times per day (Last dose: 07/08/2016 08:30) 5. furosemide 20 mg Oral tab 1 tab once daily (Last dose: 07/08/2016 08:30) - PMHx: cardiomyopathy; - PSHx: Tubal ligation; - The history from nurses notes was reviewed: and I agree with what is documented. - Social history: Smoking status: Patient uses tobacco products, current every day smoker. No barriers to communication noted, The patient speaks fluent Luxembourgish, Speaks appropriately for age. - : The pt / caregiver states he / she is not on anticoagulants. Home medication list is obtained from the patient. - Hospitalizations: : No recent hospitalization is reported. - Exposure Risk Screening:: None identified. - Immunization history:: All immunizations up-to-date. - Family history: Pertinent for heart disease. 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 pc Exam: 13:41 General Appearance: no acute distress, alert. pc 13:41 EENT: normal eye inspection, ears, nose and throat normal, pharynx normal, mucous membranes moist 13:41 Neck: The exam reveals no acute abnormalities. ROM is normal and painless. No nuchal rigidity is noted.. 13:41 Respiratory: no respiratory distress, normal breath sounds. 13:41 CVS: regular pulse rate, regular rhythm, normal S1 and S2, no murmurs, strong peripheral pulses. 13:41 Abdomen: soft, non-tender, no organomegaly, normal bowel sounds. 13:41 Back: normal inspection. 13:41 Skin: skin color is normal, warm, dry. 13:41 Extremities: The extremities have a grossly normal appearance, are non-tender, without acute ROM abnormalities. 13:41 Neuro: oriented x 3, cranial nerves normal except for a facial droop noted on right, Speech is dysarthric. Vital Signs: 12:32 BP 134 / 91; Pulse 110; Resp 18 S; Temp 97.4(O); Pulse Ox 98% on R/A; Weight 62.6 kg / gr2 138.01 lbs (R); Height 5 ft. 9 in. (175.26 cm) (R); Pain 4/10; 12:41 BP 125 / 87 (auto/); jc4 12:43 Pulse 100 MON; Pulse Ox 96% ; jc4 13:05 BP 115 / 78 (auto/); jc4 13:07 Pulse 90 MON; Pulse Ox 95% ; jc4 13:10 Pulse 96 MON; Pulse Ox 97% ; jc4 13:11 BP 128 / 105 (auto/); jc4 13:13 BP 112 / 91 (auto/); jc4 13:13 Pulse 80 MON; jc4 13:24 Weight 65.32 kg / 144.01 lbs (M); ja5 14:19 Pulse 68 MON; Pulse Ox 95% ; ja5 14:19 Resp 13 S; ja5 14:20 BP 158 / 85 (auto/); ja5 14:25 BP 143 / 83 (auto/); ja5 14:25 Pulse 54 MON; Pulse Ox 94% ; ja5 14:55 BP 122 / 93 (auto/); ja5 14:55 Pulse 92 MON; Pulse Ox 96% ; ja5 15:10 BP 133 / 101 (auto/); ja5 15:10 Pulse 82 MON; Pulse Ox 95% ; ja5 15:24 Pulse 66 MON; Pulse Ox 96% ; ja5 15:25 BP 156 / 110 (auto/); ja5 15:41 Pulse 60 MON; ja5 16:43 BP 102 / 86 (auto/); ja5 17:13 BP 121 / 83 (auto/); ja5 17:13 Pulse 90 MON; Pulse Ox 95% ; ja5 17:22 Pulse 88 MON; Pulse Ox 95% ; ja5 17:32 BP 109 / 83; Pulse 88; Resp 15; Temp 97.7(T); Pulse Ox 95% on R/A; Pain 0/10; ja5 17:42 Pulse 76 MON; Pulse Ox 96% ; jc4 17:43 BP 124 / 75 (auto/); jc4 13:24 Body Mass Index 21.26 (65.32 kg, 175.26 cm) ja5 MDM: 12:43 RN interventions must not delay CT ordered. pc 12:43 Retread Technician/Pulse Ox/q 15 min VS ordered. pc 12:43 Accucheck ordered. pc 12:43 IV Saline Lock ordered. pc 12:43 Neuro VS q 15 Minutes ordered. pc 12:43 Patient must be on CC stretcher and weighed via bed scale ordered. pc 12:43 Rhythm Strip to chart ordered. pc 12:43 Stroke assessment pack to bedside ordered. pc 12:44 Basic Metabolic Profile Ordered. EDMS 12:44 CBC with Diff Ordered. EDMS 12:44 Partial Thromboplastin Time Ordered. EDMS 12:44 Prothrombin Time Profile\E\INR Ordered. EDMS 12:44 Chest, 1 View Ordered. EDMS 12:44 ECG WITH READING ER PHYS+CARDIAG ordered. EDMS 12:44 Type & Screen Ordered. EDMS 12:45 CT Head Without Contrast Ordered. EDMS 13:13 Fingerstick Blood Sugar Ordered. EDMS 13:26 ED course: Her CT was not read before 1:30pm, which places her over 4.5 hours from pc symptom onset, and she is not a candidate for thrombolytics . 13:34 Basic Metabolic Profile Reviewed. pc 13:34 CBC with Diff Reviewed. pc 13:34 Partial Thromboplastin Time Reviewed. pc 13:34 Fingerstick Blood Sugar Reviewed. pc 13:34 Prothrombin Time Profile\E\INR Reviewed. pc 13:34 Type & Screen Reviewed. pc 13:38 ED course: CT read at 1:33pm. Call to [facility] Stroke attending attempted but she is on pc another call, so transfer center to call back when available. 13:53 Type & Screen Reviewed. pc 13:57 Financial registration complete. mm15 13:58 [facility] Payment Agreement was scanned into [employer] and attached to record. mm15 14:07 Aspirin 325 mg PO once ordered. pc 14:07 BED REQUEST+ADM ordered. EDMS 14:30 MRI Screening Tool - Place on chart, inform RN ordered. pc 14:31 -MRA-Brain without contrast Ordered. EDMS 14:32 -MRI-Brain without Ordered. EDMS 14:32 Differential Diagnosis: CVA, resolving. Plan: CT, labs, EKG, CXR, d/w Stroke Center. pc Data reviewed: old medical records, vital signs, nurses notes, EKG(s), lab test results, all radiology studies and available results. Test interpretation: LAB - all labs as ordered have been reviewed, interpreted and considered in the overall management of the clinical presentation; X-RAY - interpreted by Radiologist and personally reviewed, 1 view chest CM interpreted by Radiologist and personally reviewed, discussed with Radiologist, Head CT; no acute disease. The patient has been re-examined and re-evaluated. The patient's symptoms have markedly improved after treatment, with her speech now much more clear and she is talking in 6-7 word sentences. Physician consultation: Dr. Vargas was contacted at 13:45, regarding patient's condition, and she advises that the patient is outside of the thrombolytic window and is not a candidate for intravascular interventions. She can be transferred to [facility] if the patient chooses but otherwise could be worked up at [facility]. The patient chooses to stay at [facility]. 14:32 Physician consultation: Dr. Bree Arenas regarding patient's condition, and advises pc the medications/treatment as provided. 14:32 Physician consultation: Dr. Won Reid regarding admission. Disposition: The historical pc points, examination findings, and any diagnostic results supporting the provided diagnosis, were discussed with the patient or legal guardian. The need for further work-up and/or treatment in the hospital was explained. 14:37 MRA CAROTID W/O FOL WITH Ordered. EDMS 14:38 Test interpretation: EKG. pc 14:56 MRI Screening Tool - Place on chart, inform RN complete. lbd 15:29 Admission / Observation Status ordered. EDMS 15:38 ECHOCARD,DOPPLER/COLOR FLOW ordered. EDMS 15:39 REGULAR DIET ordered. EDMS 15:39 CARDIAC MARKER PANEL Ordered. EDMS 15:39 CARDIAC MARKER PANEL Ordered. EDMS 15:39 ANTINUCLEAR ANTIBODIES Ordered. EDMS 15:39 Lupus Type Anticoagulant Ordered. EDMS 15:40 ANTI-CARDIOLIPIN ANTIBODIES Ordered. EDMS 15:40 ANTI-NEUTROPHIL CYTOPLASMIC AB Ordered. EDMS 15:40 ANTI-SJOGRENS A & B ANTIBODIES Ordered. EDMS 15:40 ERYTHROCYTE SEDIMENTATION RATE Ordered. EDMS 15:40 C REACTIVE PROTEIN QUANTITATIV Ordered. EDMS 15:40 PROTEIN C ANTIGEN Ordered. EDMS 15:40 PROTEIN S ANTIGEN(TOT&FREE) Ordered. EDMS 15:40 ANTI THROMBIN 3 PANEL (AG/AC) Ordered. EDMS 15:41 HOMOCYSTEINE Ordered. EDMS 15:41 FACTOR V LEIDEN Ordered. EDMS 15:41 FACTOR II PROTHROMBIN GENE AN Ordered. EDMS 07/09 09:00 ECG/EKG was scanned into [employer] and attached to record. gb 09:00 Trend VS was scanned into [employer] and attached to record. EC/17 14:38 Rate is 95 beats/min. Rhythm is regular, Sinus tachycardia with Occasional PVCs. QRS is pc negative in leads II, aVF. ND interval is normal. QRS interval is prolonged at 138 msec. QT interval is normal. No Q waves. T waves are Normal. No ST changes noted. Clinical impression: Normal Sinus Rhythm and LAE, LAD, INC. LBBB. Administered Medications: 14:20 Drug: Aspirin 325 mg [aspirin 325 mg tablet (1 tabs)] Route: PO; jc4 Critical Care Time: 14:32 Critical care time: Bedside Care: 25 minutes, Consultation: 30 minutes, Family pc Intervention: 15 minutes. Total time: 70 minutes Signatures: Dispatcher [employer] EDMS Lj Bahena MD MD pc Daly, Linda, Nitrogen Operator Unit lbd Allison Lee RN Bouchra Hawk RN Salome Bridges mcp, Jose Reg Elena Chatterjee RN RN jc4 Maico León mm15 The chart was reviewed and I authenticate all verbal orders and agree with the evaluation and treatment provided.Corrections: (The following items were deleted from the chart) 13:25 12:45 ECG WITH READING ER PHYS+CARDIAG ordered. EDMS EDMS 14:33 13:41 Neuro: oriented x 3, cranial nerves normal except for a facial droop noted on pc right, pc 14:37 14:32 MRA-Carotid with contrast+MR ordered. EDMS EDMS Attachments: 13:58 [facility] Payment Agreement mm15 07/09 09:00 [facility]EKG Chart [facility]
--- NOTE | 2016-07-10 19:14 | EDDOCDS ---
Physician Documentation [facility] Name: Matilde Torre Age: 50 yrs Sex: Female : 1965 Arrival Date: 07/08/2016 Time: 12:30 Bed 4 Private MD: No Pcp Disposition: 07/08 14:32 Critical Care:. pc Disposition: 07/08/16 14:38 Hospitalization ordered by Won Reid for Inpatient Admission. Preliminary diagnosis is Cerebral infarction due to embolism of other cerebral artery - left hemisphere. - Bed requested for PCU. - Status is Inpatient Admission. jc4 - Condition is Stable. - Problem is new. - Symptoms have improved. HPI: 13:28 This 50 yrs old Female presents to ER via Walkin/Carried/Asstd with pc complaints of S/S of Possible Stroke. 13:28 The history is obtained from the patient. A reliable history and/or examination was not pc able to be obtained, due to dysarthria. 13:41 At 9am this morning, she was alone in her home and was trying to take a shower when she pc suddenly could not use her right arm properly: it felt weak and numb and she could not operate the shower controls. She then noticed she could not speak properly, stating she could not get any words out initially, and then the wrong words were spoken. She contacted her spouse much later and he brought her here, 3.5 hours after symptom onset. She says her speech is improved, now having dysarthria but no aphasia. She also says her right arm is feeling better, is no longer numb and she is not dropping things. She denies any headache, nausea or vomiting, chest pain or any other symptoms. At their worst, the symptoms were severe. In the emergency department, the symptoms are moderate. The patient has not experienced similar symptoms in the past. 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 Historical: - Allergies: no known allergies; - Home Meds: 1. Klor-Con 10 10 mEq Oral TbER 1 tab once daily (Last dose: 07/08/2016 08:30) 2. spironolactone 25 mg Oral tab 1 tab once daily (Last dose: 07/08/2016 08:30) 3. digoxin 125 mcg Oral tab 1 tab once daily (Last dose: 07/07/2016 16:00) 4. carvedilol 6.25 mg oral tab 1 tab 2 times per day (Last dose: 07/08/2016 08:30) 5. furosemide 20 mg Oral tab 1 tab once daily (Last dose: 07/08/2016 08:30) - PMHx: cardiomyopathy; - PSHx: Tubal ligation; - The history from nurses notes was reviewed: and I agree with what is documented. - Social history: Smoking status: Patient uses tobacco products, current every day smoker. No barriers to communication noted, The patient speaks fluent Albanian, Speaks appropriately for age. - : The pt / caregiver states he / she is not on anticoagulants. Home medication list is obtained from the patient. - Hospitalizations: : No recent hospitalization is reported. - Exposure Risk Screening:: None identified. - Immunization history:: All immunizations up-to-date. - Family history: Pertinent for heart disease. 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 pc Exam: 13:41 General Appearance: no acute distress, alert. pc 13:41 EENT: normal eye inspection, ears, nose and throat normal, pharynx normal, mucous membranes moist 13:41 Neck: The exam reveals no acute abnormalities. ROM is normal and painless. No nuchal rigidity is noted.. 13:41 Respiratory: no respiratory distress, normal breath sounds. 13:41 CVS: regular pulse rate, regular rhythm, normal S1 and S2, no murmurs, strong peripheral pulses. 13:41 Abdomen: soft, non-tender, no organomegaly, normal bowel sounds. 13:41 Back: normal inspection. 13:41 Skin: skin color is normal, warm, dry. 13:41 Extremities: The extremities have a grossly normal appearance, are non-tender, without acute ROM abnormalities. 13:41 Neuro: oriented x 3, cranial nerves normal except for a facial droop noted on right, Speech is dysarthric. Vital Signs: 12:32 BP 134 / 91; Pulse 110; Resp 18 S; Temp 97.4(O); Pulse Ox 98% on R/A; Weight 62.6 kg / gr2 138.01 lbs (R); Height 5 ft. 9 in. (175.26 cm) (R); Pain 4/10; 12:41 BP 125 / 87 (auto/); jc4 12:43 Pulse 100 MON; Pulse Ox 96% ; jc4 13:05 BP 115 / 78 (auto/); jc4 13:07 Pulse 90 MON; Pulse Ox 95% ; jc4 13:10 Pulse 96 MON; Pulse Ox 97% ; jc4 13:11 BP 128 / 105 (auto/); jc4 13:13 BP 112 / 91 (auto/); jc4 13:13 Pulse 80 MON; jc4 13:24 Weight 65.32 kg / 144.01 lbs (M); ja5 14:19 Pulse 68 MON; Pulse Ox 95% ; ja5 14:19 Resp 13 S; ja5 14:20 BP 158 / 85 (auto/); ja5 14:25 BP 143 / 83 (auto/); ja5 14:25 Pulse 54 MON; Pulse Ox 94% ; ja5 14:55 BP 122 / 93 (auto/); ja5 14:55 Pulse 92 MON; Pulse Ox 96% ; ja5 15:10 BP 133 / 101 (auto/); ja5 15:10 Pulse 82 MON; Pulse Ox 95% ; ja5 15:24 Pulse 66 MON; Pulse Ox 96% ; ja5 15:25 BP 156 / 110 (auto/); ja5 15:41 Pulse 60 MON; ja5 16:43 BP 102 / 86 (auto/); ja5 17:13 BP 121 / 83 (auto/); ja5 17:13 Pulse 90 MON; Pulse Ox 95% ; ja5 17:22 Pulse 88 MON; Pulse Ox 95% ; ja5 17:32 BP 109 / 83; Pulse 88; Resp 15; Temp 97.7(T); Pulse Ox 95% on R/A; Pain 0/10; ja5 17:42 Pulse 76 MON; Pulse Ox 96% ; jc4 17:43 BP 124 / 75 (auto/); jc4 13:24 Body Mass Index 21.26 (65.32 kg, 175.26 cm) ja5 MDM: 12:43 RN interventions must not delay CT ordered. pc 12:43 Color Tester/Pulse Ox/q 15 min VS ordered. pc 12:43 Accucheck ordered. pc 12:43 IV Saline Lock ordered. pc 12:43 Neuro VS q 15 Minutes ordered. pc 12:43 Patient must be on CC stretcher and weighed via bed scale ordered. pc 12:43 Rhythm Strip to chart ordered. pc 12:43 Stroke assessment pack to bedside ordered. pc 12:44 Basic Metabolic Profile Ordered. EDMS 12:44 CBC with Diff Ordered. EDMS 12:44 Partial Thromboplastin Time Ordered. EDMS 12:44 Prothrombin Time Profile\E\INR Ordered. EDMS 12:44 Chest, 1 View Ordered. EDMS 12:44 ECG WITH READING ER PHYS+CARDIAG ordered. EDMS 12:44 Type & Screen Ordered. EDMS 12:45 CT Head Without Contrast Ordered. EDMS 13:13 Fingerstick Blood Sugar Ordered. EDMS 13:26 ED course: Her CT was not read before 1:30pm, which places her over 4.5 hours from pc symptom onset, and she is not a candidate for thrombolytics . 13:34 Basic Metabolic Profile Reviewed. pc 13:34 CBC with Diff Reviewed. pc 13:34 Partial Thromboplastin Time Reviewed. pc 13:34 Fingerstick Blood Sugar Reviewed. pc 13:34 Prothrombin Time Profile\E\INR Reviewed. pc 13:34 Type & Screen Reviewed. pc 13:38 ED course: CT read at 1:33pm. Call to [facility] Stroke attending attempted but she is on pc another call, so transfer center to call back when available. 13:53 Type & Screen Reviewed. pc 13:57 Financial registration complete. mm15 13:58 [facility] Payment Agreement was scanned into [employer] and attached to record. mm15 14:07 Aspirin 325 mg PO once ordered. pc 14:07 BED REQUEST+ADM ordered. EDMS 14:30 MRI Screening Tool - Place on chart, inform RN ordered. pc 14:31 -MRA-Brain without contrast Ordered. EDMS 14:32 -MRI-Brain without Ordered. EDMS 14:32 Differential Diagnosis: CVA, resolving. Plan: CT, labs, EKG, CXR, d/w Stroke Center. pc Data reviewed: old medical records, vital signs, nurses notes, EKG(s), lab test results, all radiology studies and available results. Test interpretation: LAB - all labs as ordered have been reviewed, interpreted and considered in the overall management of the clinical presentation; X-RAY - interpreted by Radiologist and personally reviewed, 1 view chest CM interpreted by Radiologist and personally reviewed, discussed with Radiologist, Head CT; no acute disease. The patient has been re-examined and re-evaluated. The patient's symptoms have markedly improved after treatment, with her speech now much more clear and she is talking in 6-7 word sentences. Physician consultation: Dr. Vargas was contacted at 13:45, regarding patient's condition, and she advises that the patient is outside of the thrombolytic window and is not a candidate for intravascular interventions. She can be transferred to [facility] if the patient chooses but otherwise could be worked up at [facility]. The patient chooses to stay at [facility]. 14:32 Physician consultation: Dr. Bree Arenas regarding patient's condition, and advises pc the medications/treatment as provided. 14:32 Physician consultation: Dr. Won Reid regarding admission. Disposition: The historical pc points, examination findings, and any diagnostic results supporting the provided diagnosis, were discussed with the patient or legal guardian. The need for further work-up and/or treatment in the hospital was explained. 14:37 MRA CAROTID W/O FOL WITH Ordered. EDMS 14:38 Test interpretation: EKG. pc 14:56 MRI Screening Tool - Place on chart, inform RN complete. lbd 15:29 Admission / Observation Status ordered. EDMS 15:38 ECHOCARD,DOPPLER/COLOR FLOW ordered. EDMS 15:39 REGULAR DIET ordered. EDMS 15:39 CARDIAC MARKER PANEL Ordered. EDMS 15:39 CARDIAC MARKER PANEL Ordered. EDMS 15:39 ANTINUCLEAR ANTIBODIES Ordered. EDMS 15:39 Lupus Type Anticoagulant Ordered. EDMS 15:40 ANTI-CARDIOLIPIN ANTIBODIES Ordered. EDMS 15:40 ANTI-NEUTROPHIL CYTOPLASMIC AB Ordered. EDMS 15:40 ANTI-SJOGRENS A & B ANTIBODIES Ordered. EDMS 15:40 ERYTHROCYTE SEDIMENTATION RATE Ordered. EDMS 15:40 C REACTIVE PROTEIN QUANTITATIV Ordered. EDMS 15:40 PROTEIN C ANTIGEN Ordered. EDMS 15:40 PROTEIN S ANTIGEN(TOT&FREE) Ordered. EDMS 15:40 ANTI THROMBIN 3 PANEL (AG/AC) Ordered. EDMS 15:41 HOMOCYSTEINE Ordered. EDMS 15:41 FACTOR V LEIDEN Ordered. EDMS 15:41 FACTOR II PROTHROMBIN GENE AN Ordered. EDMS 07/09 09:00 ECG/EKG was scanned into [employer] and attached to record. gb 09:00 Trend VS was scanned into [employer] and attached to record. EC/17 14:38 Rate is 95 beats/min. Rhythm is regular, Sinus tachycardia with Occasional PVCs. QRS is pc negative in leads II, aVF. MA interval is normal. QRS interval is prolonged at 138 msec. QT interval is normal. No Q waves. T waves are Normal. No ST changes noted. Clinical impression: Normal Sinus Rhythm and LAE, LAD, INC. LBBB. Administered Medications: 14:20 Drug: Aspirin 325 mg [aspirin 325 mg tablet (1 tabs)] Route: PO; jc4 Critical Care Time: 14:32 Critical care time: Bedside Care: 25 minutes, Consultation: 30 minutes, Family pc Intervention: 15 minutes. Total time: 70 minutes Signatures: Dispatcher [employer] EDMS Lj Bahena MD MD pc Daly, Linda, Laser Print Operator Unit lbd Allison Lee RN Bouchra Hawk RN Salome Bridges mcp, Jose Reg Elena Chatterjee RN RN jc4 Maico León mm15 The chart was reviewed and I authenticate all verbal orders and agree with the evaluation and treatment provided.Corrections: (The following items were deleted from the chart) 13:25 12:45 ECG WITH READING ER PHYS+CARDIAG ordered. EDMS EDMS 14:33 13:41 Neuro: oriented x 3, cranial nerves normal except for a facial droop noted on pc right, pc 14:37 14:32 MRA-Carotid with contrast+MR ordered. EDMS EDMS Attachments: 13:58 [facility] Payment Agreement mm15 07/09 09:00 [facility]
--- NOTE | 2016-07-10 19:14 | EDDOCDS ---
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 aslo drooling. The srm last date and time the patient was known to be well was was at 09:00 on July 08, 2016. 12:34 Acuity: CARMELA Level 2 srm 12:37 impaired speech and drooling. gait steady moves all extremities. Adult Sepsis srm Screening: The patient does not have new or worsening altered mentation. Patient's respiratory rate is less than 22. Systolic blood pressure is greater than 100. Patient has a qSOFA score of 0- Negative Sepsis Screen. Suicide/Homicide risk assessment- the patient denies having any suicidal and/or homicidal ideations and does not present with any other emotional, behavioral or mental health complaints. Status: Patient is not a visitor services technician or dependent. Transition of care: patient was not received from another setting of care. 12:37 Method Of Arrival: Walkin/Carried/[facility] 17:37 Pre-hospital glucose is not applicable to this patient. ja5 Triage Assessment: 12:42 The onset of the patients symptoms was more than three hours ago. General: Appears in srm no apparent distress, Behavior is appropriate for age, cooperative. Pain: Denies pain. Neurological: Level of Consciousness is awake, alert, Oriented to person, place, time, Moves all extremities. Full function Gait is steady, Facial symmetry appears normal, Reports no additional symptoms. 12:43 HIV screening NA for this visit Offered previously. 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 Klor-Con 10 10 mEq Oral TbER 1 tab once daily (Last dose: 07/08/2016 08:30) 2. spironolactone 25 mg Oral tab 1 tab once daily (Last dose: 07/08/2016 08:30) 3. digoxin 125 mcg Oral tab 1 tab once daily (Last dose: 07/07/2016 16:00) 4. carvedilol 6.25 mg oral tab 1 tab 2 times per day (Last dose: 07/08/2016 08:30) 5. furosemide 20 mg Oral tab 1 tab once daily (Last dose: 07/08/2016 08:30) - PMHx: cardiomyopathy; - PSHx: Tubal ligation; - The history from nurses notes was reviewed: and I agree with what is documented. - Social history: Smoking status: Patient uses tobacco products, current every day smoker. No barriers to communication noted, The patient speaks fluent Nauruan, Speaks appropriately for age. - : The pt / caregiver states he / she is not on anticoagulants. Home medication list is obtained from the patient. - Hospitalizations: : No recent hospitalization is reported. - Exposure Risk Screening:: None identified. - Immunization history:: All immunizations up-to-date. - Family history: Pertinent for heart disease. 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 Screenin:35 Screening information is obtained from the patient. Fall risk: At risk due to Stroke ja5 symptoms. Fall risk: At risk due to medical condition. Assistance ADL's: requires no assistance with activities of daily living. Abuse/DV Screen: The patient / caregiver reports he/she is: not in a situation that causes fear, pain or injury. Nutritional screening: On no prescribed diet. Advance Directives: Currently, there is no health care proxy. There is no active DNR order. There is no living will. home support is adequate. Assessment: 13:10 General: Appears in no apparent distress, Behavior is anxious. Pain: Denies pain. ja5 Neurological: Level of Consciousness is awake, alert, obeys commands, Oriented to person, place, time, Test Engineer are equal bilaterally Moves all extremities. Full function Speech is slurred, Facial droop on right, Pupils are PERRLA. Cardiovascular: Capillary refill < 3 seconds Heart tones S1 S2 present Rhythm is sinus rhythm with unifocal PVCs. Respiratory: Airway is patent Breath sounds are clear bilaterally. Derm: Skin is pink, warm & dry. Skin temperature is warm. 14:00 General: Appears in no apparent distress. Neurological: Level of Consciousness is jc4 awake, alert, Oriented to person, place, time, Speech speech remains slurred at time, but is improved. Color pink, skin warm and dry. Respirations easy and full. Family members at bedside. 14:20 General: Pt sitting up on stretcher, conversing with daughters. Pt given Aspirin. jc4 Tolerated sips of water without difficulty. Color pink, skin warm and dry. Respirations easy and full. Saline lock in place. 15:15 General: Appears in no apparent distress, Behavior is appropriate for age, cooperative. jc4 Pain: Denies pain. Neurological: Level of Consciousness is awake, alert, Oriented to person, place, time, Test Engineer are equal bilaterally Moves all extremities. Speech is slurred, Pupils are PERRLA. Respiratory: Airway is patent Respiratory effort is even, unlabored, Respiratory pattern is regular, symmetrical. Derm: Skin is pink, warm & dry. 16:55 General: Pt sitting on stretcher, returned from MRI at this time. Pt alert, oriented. jc4 Color pink, skin warm and dry. Respirations easy and full. Pt made aware has room in PCU. . 17:07 General: Dr. Arenas in to see patient at this time. . ja5 17:38 General: Appears in no apparent distress, Behavior is appropriate for age, cooperative. ja5 Pain: Denies pain. Neurological: Level of Consciousness is awake, alert, obeys commands, Oriented to person, place, time, Test Engineer are equal bilaterally Moves all extremities. Full function Speech slight slurring but has improved since arrival.. Facial symmetry appears normal, Pupils are PERRLA. Cardiovascular: Rhythm is sinus rhythm No ectopy. Respiratory: Airway is patent Respiratory effort is even, unlabored, Respiratory pattern is regular, symmetrical. Derm: Skin is pink, warm & dry. Skin temperature is warm. 18:11 General: Appears in no apparent distress, Behavior is crying. Neurological: Level of jc4 Consciousness is awake, alert. Respiratory: Airway is patent Respiratory effort is even, unlabored, Respiratory pattern is regular, symmetrical. Derm: Skin is pink, warm & dry. Vital Signs: 12:32 BP 134 / 91; Pulse 110; Resp 18 S; Temp 97.4(O); Pulse Ox 98% on R/A; Weight 62.6 kg gr2 (R); Height 5 ft. 9 in. (175.26 cm) (R); Pain 4/10; 12:41 BP 125 / 87 (auto/); jc4 12:43 Pulse 100 MON; Pulse Ox 96% ; jc4 13:05 BP 115 / 78 (auto/); jc4 13:07 Pulse 90 MON; Pulse Ox 95% ; jc4 13:10 Pulse 96 MON; Pulse Ox 97% ; jc4 13:11 BP 128 / 105 (auto/); jc4 13:13 BP 112 / 91 (auto/); jc4 13:13 Pulse 80 MON; jc4 13:24 Weight 65.32 kg (M); ja5 14:19 Pulse 68 MON; Pulse Ox 95% ; ja5 14:19 Resp 13 S; ja5 14:20 BP 158 / 85 (auto/); ja5 14:25 BP 143 / 83 (auto/); ja5 14:25 Pulse 54 MON; Pulse Ox 94% ; ja5 14:55 BP 122 / 93 (auto/); ja5 14:55 Pulse 92 MON; Pulse Ox 96% ; ja5 15:10 BP 133 / 101 (auto/); ja5 15:10 Pulse 82 MON; Pulse Ox 95% ; ja5 15:24 Pulse 66 MON; Pulse Ox 96% ; ja5 15:25 BP 156 / 110 (auto/); ja5 15:41 Pulse 60 MON; ja5 16:43 BP 102 / 86 (auto/); ja5 17:13 BP 121 / 83 (auto/); ja5 17:13 Pulse 90 MON; Pulse Ox 95% ; ja5 17:22 Pulse 88 MON; Pulse Ox 95% ; ja5 17:32 BP 109 / 83; Pulse 88; Resp 15; Temp 97.7(T); Pulse Ox 95% on R/A; Pain 0/10; ja5 17:42 Pulse 76 MON; Pulse Ox 96% ; jc4 17:43 BP 124 / 75 (auto/); jc4 13:24 Body Mass Index 21.26 (65.32 kg, 175.26 cm) ja5 Vitals: 12:32 Log In Time: July 08, 2016 at 12:32. RN notified that patient meets Red Flag gr2 criteria. 13:06 Glucose Measurement 127 mg/dl. Dr. Josef patel. jc4 ED Course: 12:31 Patient visited by Rivera Greene. gr2 12:31 No Pcp is Private Physician. gr2 12:31 Patient moved to Waiting gr2 12:34 Patient visited by Rivera Greene. gr2 12:34 Patient moved to Pre RCE gr2 12:35 Elena Chatterjee, RN is Primary Nurse. srm 12:35 Triage Initiated srm 12:35 Patient moved to 14 srm 12:38 Lj Bahena MD is Attending Physician. pc 12:50 Patient visited by Libia Davila PCA. ct3 12:50 Accompanied by Family Member, Patient has correct armband on for positive ct3 identification. Placed in gown. Bed in low position. Call light in reach. Side rails up X2. die maker on. Pulse ox on. NIBP on. 12:50 EKG done. (by ED staff). Reviewed by Lj Bahena MD. ct3 12:53 Basic Metabolic Profile Sent. ja5 12:53 CBC with Diff Sent. ja5 12:53 Partial Thromboplastin Time Sent. ja5 12:53 Prothrombin Time Profile\E\INR Sent. ja5 12:53 Type & Screen Sent. ja5 13:06 Patient visited by Lj Bahena MD. pc 13:15 Inserted peripheral IV: in left antecubital area. ja5 13:25 Patient moved to 4 ja5 13:58 [facility] Payment Agreement was scanned into [employer] and attached to record. mm15 14:04 Patient visited by Libia Davila PCA. ct3 14:04 Chest, 1 View Returned. EDMS 14:04 CT Head Without Contrast Returned. EDMS 14:38 Won Reid is Hospitalizing Provider. pc 17:27 -MRA-Brain without contrast Returned. EDMS 17:27 -MRI-Brain without Returned. EDMS 17:27 MRA CAROTID W/O FOL WITH Returned. EDMS 17:37 No procedures done that require assistance. ja5 17:38 The patient / caregiver is instructed regarding the plan of care and ED course. ja5 18:03 Patient visited by Libia Davila PCA. ct3 18:03 Diet: Patient given regular meal. ct3 07/09 09:00 ECG/EKG was scanned into [employer] and attached to record. gb 09:00 Trend VS was scanned into [employer] and attached to record. gb Administered Medications: 07/08 14:20 Drug: Aspirin 325 mg [aspirin 325 mg tablet (1 tabs)] Route: PO; jc4 Attachments: 09:00 Trend VS gb Order Results: Lab Order: Basic Metabolic Profile; SPEC'M 07/08/16 12:50 Test: GLUCOSE, FASTING; Value: 133; Range: 70-105; Abnormal: Above high normal; Units: MG/DL; Status: F Test: BLOOD UREA NITROGEN; Value: 25; Range: 7-18; Abnormal: Above high normal; Units: MG/DL; Status: F Test: CREATININE FOR GFR; Value: 1.02; Range: 0.55-1.02; Units: MG/DL; Status: F Test: GLOMERULAR FILTRATION RATE; Value: > 60.0; Range: >51; Status: F Test: SODIUM LEVEL; Value: 140; Range: 136-145; Units: MEQ/L; Status: F Test: POTASSIUM SERUM; Value: 4.2; Range: 3.5-5.1; Units: MEQ/L; Status: F Test: CHLORIDE LEVEL; Value: 102; Range: 98-107; Units: MEQ/L; Status: F Test: CARBON DIOXIDE LEVEL; Value: 27; Range: 21-32; Units: MEQ/L; Status: F Test: ANION GAP; Value: 11; Range: 8-16; Units: MEQ/L; Status: F Test: CALCIUM LEVEL; Value: 9.5; Range: 8.5-10.1; Units: MG/DL; Status: F Test Note: ; Units are mL/min/1.73 m2 Chronic Kidney Disease Staging per NKF: Stage I & II GFR >=60 Normal to Mildly Decreased Stage III GFR 30-59 Moderately Decreased Stage IV GFR 15-29 Severely Decreased Stage V GFR <15 Very Little GFR Left ESRD GFR <15 on 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 SOFTWARE ENGINEER Lab Order: CBC with Diff; SPEC'M 07/08/16 12:50 Test: WHITE BLOOD COUNT; Value: 9.3; Range: 4.0-10.0; Units: K/mm3; Status: F Test: RED BLOOD COUNT; Value: 4.96; Range: 4.00-5.40; Units: M/mm3; Status: F Test: HEMOGLOBIN; Value: 16.6; Range: 12.0-16.0; Abnormal: Above high normal; Units: g/dl; Status: F Test: HEMATOCRIT; Value: 47.9; Range: 36.0-47.0; Abnormal: Above high normal; Units: %; Status: F Test: MEAN CORPUSCULAR VOLUME; Value: 96.5; Range: 80.0-96.0; Abnormal: Above high normal; Units: fl; Status: F Test: MEAN CORPUSCULAR HEMOGLOBIN; Value: 33.4; Range: 27.0-33.0; Abnormal: Above high normal; Units: pg; Status: F Test: MEAN CORPUSCULAR HGB CONC; Value: 34.6; Range: 32.0-36.5; Units: g/dl; Status: F Test: RED CELL DISTRIBUTION WIDTH; Value: 12.1; Range: 11.5-14.5; Units: %; Status: F Test: PLATELET COUNT, AUTOMATED; Value: 186; Range: 150-450; Units: k/mm3; Status: F Test: NEUTROPHILS %; Value: 65.1; Range: 36.0-66.0; Units: %; Status: F Test: LYMPH %; Value: 25.6; Range: 24.0-44.0; Units: %; Status: F Test: MONO %; Value: 5.1; Range: 0.0-5.0; Abnormal: Above high normal; Units: %; Status: F Test: EOS %; Value: 1.6; Range: 0.0-3.0; Units: %; Status: F Test: BASO %; Value: 0.4; Range: 0.0-1.0; Units: %; Status: F Test: LARGE UNSTAINED CELL %; Value: 2.2; Range: 0.0-4.0; Units: %; Status: F Test: NEUTROPHILS #; Value: 6.1; Range: 1.8-7.7; Units: K/mm3; Status: F Test: LYMPH #; Value: 2.4; Range: 1.5-4.5; Units: K/mm3; Status: F Test: MONO #; Value: 0.5; Range: 0.0-0.8; Units: K/mm3; Status: F Test: EOS #; Value: 0.2; Range: 0.0-0.50; Units: K/mm3; Status: F Test: BASO #; Value: 0.0; Range: 0.0-0.2; Units: K/mm3; Status: F Test: LARGE UNSTAINED CELL #; Value: 0.2; Range: 0.0-0.4; Units: K/mm3; Status: F Lab Order: Partial Thromboplastin Time; [facility] 07/08/16 12:50 Test: PARTIAL THROMBOPLASTIN TIME; Value: 24.7; Range: 26.6-37.1; Abnormal: Below low normal; Units: SECONDS; Status: F Lab Order: Prothrombin Time Profile\E\INR; [facility] 07/08/16 12:50 Test: PROTHROMBIN TIME; Value: 12.7; Range: 12.3-14.5; Units: SECONDS; Status: F Test: INR; Value: 0.94; Status: F Test Note: ; THERAPUTIC HUMAN INR VALUES INDICATIONS NORMAL RANGES PROPHYLAXIS/TREATMENT OF: VENOUS THROMBOSIS 2.0-3.0 PULMONARY EMBOLISM 2.0-3.0 PREVENTION OF SYSTEMIC EMBOLISM FROM: TISSUE HEART VALVES 2.0-3.0 ACUTE MYOCARDIAL INFARCTION 2.0-3.0 VALVULAR HEART DISEASE 2.0-3.0 ATRIAL FIBRILLATION 2.0-3.0 MECHANICAL VALVES(HIGH RISK) 2.5-3.5 RECURRENT MYOCARDIAL INFARCTION 2.5-3.5 Lab Order: Type & Screen; [facility] 07/08/16 12:50 Test: BLOOD TYPE; Value: A POS; Status: F Test: AB SCREEN (INDIRECT CARO)GEL; Value: NEGATIVE; Status: F Lab Order: Fingerstick Blood Sugar; [facility] 07/08/16 13:04 Test: BEDSIDE GLUCOSE; Value: 127; Range: 70-105; Abnormal: Above high normal; Units: MG/DL; Status: F Test Note: ; Doctor Notified Radiology Order: CT Head Without Contrast Test: CT Head Without Contrast REASON FOR EXAMINATION: CVA <4.5hrs; CT brain without contrast 07/08/2016; ; Indication CVA less than 4.5 hours; ; Comparison: CT brain 10/10/2011; ; The ventricles are of normal size and configuration. There is no intracranial; hemorrhage or extra-axial fluid collection. There is no midline shift or mass; effect.; ; The skull is without fracture. The right mastoid sinuses are hypoplastic.; Visualized portions of the paranasal sinuses and left mastoid sinuses are clear.; ; Impression: no acute intracranial pathology or hemorrhage.; ; Case discussed with Bouchra in ED at 127 pm om 07/08/16, who will give report to Dr.; Bahena; ; ; Signed by; Radha Wakefield MD 07/08/2016 01:34 P; Radiology Order: Chest, 1 View Test: Chest, 1 View REASON FOR EXAMINATION: CVA <4.5hrs; CHEST X-RAY:; ; Single view.; ; HISTORY: CVA less than 4.5 hours.; ; Comparison chest x-ray is from January 11, 2016.; ; FINDINGS: EKG monitoring electrodes overlie the chest. The heart is moderately; enlarged unchanged since the prior study of January 11, 2016. Pulmonary vasculature; is not increased. Pleural angles are sharp. No infiltrate is seen.; ; IMPRESSION: Moderate cardiomegaly. No evidence of pulmonary edema or pleural; effusion.; ; ; Signed by; Isaias Loyd MD 07/08/2016 02:34 P; Radiology Order: -MRA-Brain without contrast Test: -MRA-Brain without contrast REASON FOR EXAMINATION: CVA >4.5hrs; MRA BRAIN WITHOUT CONTRAST:; ; HISTORY: Infarction.; ; 3D [id number] MR angiography was performed at the level of the [place] of; [place].; ; An aneurysm is present arising from the left internal carotid artery at the; origin of the left ophthalmic artery. The aneurysm measures 3.1 x 3.9 mm. The; aneurysm projects superior from the left internal carotid artery. There is no; other aneurysm or arteriovenous malformation. There are no atherosclerotic; lesions. Major intracranial vessels are patent. 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 This is decreased in signal; intensity on ADC images and is consistent with an acute infarction. Several; punctate areas of increased signal intensity on T2-weighted images are present in; the subcortical white matter. This represents small vessel ischemic disease.; There is no intraparenchymal hemorrhage, mass or midline shift. The ventricular; system is normal in appearance. There is no extracerebral collection. Mucosal; thickening is present in the left ethmoid, maxillary and sphenoid sinuses.; ; IMPRESSION:; ; 1. Small acute left parietal lobe infarction.; ; 2. Minimal small vessel ischemic disease.; ; ; Signed by; Simeon Moya MD 07/08/2016 05:10 P; Radiology Order: MRA CAROTID W/O FOL WITH Test: MRA CAROTID W/O FOL WITH REASON FOR EXAMINATION: CVA >4.5hrs; MRA CAROTIDS WITHOUT AND WITH CONTRAST:; ; HISTORY: Infarction.; ; CONTRAST: ProHance 25 ml.; ; Unenhanced 2D TOF and contrast MR angiography were performed at the level of the; carotid bifurcations. The distal common carotid arteries and origins of the; external and the internal carotid arteries are normal. The vertebral arteries are; patent. The left vertebral artery is dominant. There are no atherosclerotic; lesions. An aneurysm is present arising from the left internal carotid artery at; the origin of the left ophthalmic artery. The aneurysm measures 3.1 x 3.9 mm.; ; IMPRESSION:; ; 1. There is no carotid stenosis.; ; 2. 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 18:10 Discharge Assessment: Patient awake and alert. patient administered narcotics - no. The jc4 following High Risk Discharge criteria are identified: None. Admitted to PCU accompanied by nurse, family with patient, via stretcher, on monitor, with chart. Condition: stable. CT Study completed. MRI Study completed. Admission hand-off: Report Faxed Fax receipt verified by Ana Maria. Property :Personal belongings accompany Pt. 18:12 Patient left the ED. jc4 Signatures: Dispatcher [employer] EDMS Lj Bahena MD MD pc Michelson, Staci RN CINDY srm Yannick, Salome, Reg Reg Elena Boswell RN RN jc4 Libia Davila PCA SUPER[employer]OR [employer] ct3 Rivera Greene gr2 Maico León mm15 Elvi Olson,RN RN ja5 Corrections: (The following items were deleted from the chart) 17:25 Temp 97.7F Oral; ja5 ja5 17:23 BP 109 / 83 Auto; ja5 ja5 17:27 Resp 15bpm; Spontaneous; ja5 ja5 Chart Complete MTDD
[2016-07-10 19:34] VITALS: BP 110/87
[2016-07-10] MEDS: ATORVASTATIN 20 MG TAB PO SCH (20:58)
[2016-07-10] MEDS: SLF 3 ML SYR IV SCH (20:59)
[2016-07-10] MEDS: WARFARIN SOD 4 MG TAB PO SCH (21:04)
--- NOTE | 2016-07-10 21:14 | IPN ---
DATE: 07/10/2016 SUBJECTIVE: Patient seen and examined. No acute events overnight. Denies any chest pain, pressure, discomfort. No neurological change. Telemetry appreciated. VITAL SIGNS: Temperature 96, pulse 88, respirations 18, blood pressure 97/60, pulse oximetry 96% on room air. LABORATORY DATA: WBC 6.8, hemoglobin and hematocrit 14.6 over 43.1, platelets 163. Chemistry: Sodium 140, potassium 4.4, chloride 107, bicarbonate 24, BUN 21, creatinine 0.83. PHYSICAL EXAMINATION: GENERAL: Patient alert and oriented times three, in no acute distress. HEENT: Normocephalic, atraumatic. PULMONARY: Bilaterally clear to auscultation. CARDIAC: Regular rate and rhythm. Normal S1, S2. Telemetry appreciated. ABDOMEN: Soft, nontender, nondistended. EXTREMITIES: No clubbing, cyanosis or edema. NEUROLOGIC: Cranial nerves II through XII grossly intact. Right upper and lower extremities only slightly weaker than the left. The patient is right hand dominant. Able to do all her tasks, move all her extremities. ASSESSMENT AND PLAN: This is a 50-year-old female patient smoker with underlying medical history of dilated cardiomyopathy with congestive heart failure. As per patient, ejection fraction is about 5% to 10%, in need of an automatic implantable cardioverter defibrillator (AICD) since December 2015. The patient initially sees Dr. Mandujano in [place], but as per patient, has been pretty inconvenient for her, active smoker admitted for cerebrovascular accident (CVA). 1. Acute cerebrovascular accident. Neurology consulted. Neurologic checks. Telemetry. Aspirin, statin. Monitor blood pressure. Coreg, digoxin. Hypercoagulable workup. Echocardiogram appreciated. Cannot rule out apical mural thrombus. Subsequently, engineered wood designer, Dr. Santana, has been consulted for possible transesophageal echocardiogram (AMNA), given that [facility] does not carry definitive contrast for echocardiogram. MRI, MRA of the carotids appreciated. Case discussed with Dr. Arenas. Furthermore, the patient will need to get an AICD. Initially it was offered to the patient for possible transfer to [place] for high level of care, given that [facility] does not carry definitive contrast for echocardiogram, and also, the patient also needs AICD. The patient has refused the transfer. The patient is aware that by refusing the transfer, the patient accepting suboptimal care. The patient is aware of the risks. The patient stated that it is really inconvenient in the winter for her to go to [place]. Furthermore, we will place the patient on Lovenox subcutaneously until AMNA is done to confirm whether the patient has a apical mural thrombus or not. 2. New ruptured left ophthalmic artery aneurysm 3.[address] Arenas, the patient will need to followup with Dr. Gonzalo Cruz at [facility] for further evaluation and management. 3. Smoking. Smoking cessation encouraged. Counseling provided. 4. Hypertension. Continue blood pressure medication as ordered. 5. Dilated cardiomyopathy. Ejection fraction 5% to 10%. Echocardiogram appreciated. Continue digoxin, Lasix, spironolactone, beta saw, statin and aspirin. Dr. Santana consulted. Given that patient stated that it is very inconvenient for the patient to see her Dr. Mandujano in [place], she would like to see a doctor in [place]. In the future, the patient will need an AICD. Followup Dr. Santana's recommendations regarding left vest for the patient. 6. Deep venous thrombosis (DVT) prophylaxis. The patient is on Lovenox subcutaneously treatment dose until mural apical thrombus is ruled out. DISPOSITION: The patient was monitored for 72 hours on telemetry as per neurology's recommendations. Pending cardiology recommendations, physical therapy, occupational therapy, speech and swallow appreciated. The patient has severe dilated cardiomyopathy with family history of severe dilated cardiomyopathy. Poor overall prognosis.
[2016-07-10] MEDS: LISINOPRIL *2.5 MG* TAB PO SCH (21:39)
--- NOTE | 2016-07-10 22:05 | CR.PDOC ---
[facility] Cardiology Consultation Date of Consultation 07/10/16 Cadiology Consultation REFERRING PHYSICIAN: Dr. Gretchen Proctor REASON FOR REFERRAL: Nonischemic dilated cardiomyopathy, chronic systolic & diastolic heart failure. HISTORY OF PRESENT ILLNESS: 50-year-old woman who was diagnosed with nonischemic dilated cardiomyopathy towards the end of December 2015. She reports a previous cardiac catheterization around that time performed at [facility], in [place] for which to her knowledge her coronary arteries were "clean". She has been following with a film reproducer in [place], Dr. Mandujano. The plan was to implant an ICD however this has not occurred because patient does not have any medical insurance coverage at this time. She has not had any cardiac biopsy or cardiac MRI. She has not been referred for LVAD or cardiac transplantation. The plan was to get her an external bowl wearable ICD until such time that she gets insurance and then an implantable ICD. Patient used to consume 12 per week but quit alcohol the end of December 2015 after she was diagnosed with cardiomyopathy. She had a brother who had alcohol dilated cardiopathy who following heart transplant. No use of illicit drugs. No systemic hypertension. Patient was admitted to hospital on this occasion with a stroke. No history of atrial fibrillation. On telemetry she has been observed to have nonsustained monomorphic ventricular tachycardia. At the time of this consultation I do not have available for review any of the previous cardiac testing from [place]. Echocardiogram Doppler 07/09/2016 ([facility]) LV dilatation. LV diastole 7.3 cm. Severe global reduction in overall LV systolic function with severe global hypokinesis. LVEF estimated to be 5-10%. Moderate left atrial dilatation (4.8 cm). Normal LV wall thickness. Mild RV dilatation. Moderately severe elevation of estimated RV systolic pressure (58 mmHg). Inferior vena cava plethora suggestive of elevated CVP. Could not rule out apical mural thrombus. Structurally normal-appearing cardiac valves. Moderately- severe mitral regurgitation. Severe tricuspid regurgitation. Right atrial dilatation. Cardiac Symptom Status Patient recalls her main symptoms beginning in December were decreased appetite upper abdominal discomfort, fatigue, and exertional shortness of breath. The abdominal discomfort has resolved and her appetite has improved. Currently she gets exertional dyspnea if she attempts to walk any distance at a brisk pace or with ascending any kind of incline or 1 flight of stairs. Breathing does not bother her if she takes her time walking at a normal pace on the level. She has 2 pillow orthopnea. She has occasional PND. She does not recall any lower extremity edema at any time. Palpitations: Patient reports occasional episodes of palpitations lasting no more than 3-4 seconds occurring several times a day and this has been worse since being on digoxin. No other licensed occupational therapy assistant symptoms with the palpitations. The palpitations feel fast and regular. No chest, neck, upper extremity, or epigastric pain, pressure, tightness, heaviness, squeezing, or burning with or without exertion. No presyncope or syncope. No claudication. Embolic events: Stroke this hospitalization. 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 Sister with stroke at age 50. Father had lung cancer. SOCIAL HISTORY: Smoking: One pack per day 35 years. Currently trying to wean herself off the cigarettes and prior to admission was smoking 10 cigarettes a day. Alcohol: Was consuming 12 appear per week up until December 2015; alcohol intake rare since then. No illicit drugs. 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 She is in the process of trying to get health insurance. REVIEW OF SYSTEMS: Review of systems as per HPI above. All other 10 point review of systems questions negative. PHYSICAL EXAMINATION: VITAL SIGNS: Please see below. GENERAL APPEARANCE: - Normal body weight. . Not in any respiratory or psychologic distress. No gross head, facial, or skeletal deformities. EYES: No conjunctival pallor, scleral icterus or xanthelasma. ENT/Mouth: - Upper & Lower dentures. NECK: Jugular Venous Pulsations: 3 cm Trachea midline. No palpable thyroid. EXTREMITIES: No clubbing, nailbed cyanosis, or splinter hemorrhages. SKIN: No skin lesions. No skin pallor or icterus. NEUROLOGIC/PSYCHOLOGIC: Oriented to person, place, and time. Mood and affect normal. Speech normal. MUSCULOSKELETAL: Curvature of the spine normal. Gross motor strength and tone normal. No muscle atrophy, fasciculations, or tremors. - Gait normal. THORAX: Breathing appears unlabored with normal expansion. No dullness to percussion. Normal breath sounds. No crackles, wheezes, or prolonged expiration. HEART: No anterior chest scars or devices. [place] beat was enlarged and displaced 1 cm lateral to the left midclavicular line at the fifth interspace. Left parasternal lift. No heaves or thrills. S1 normal. S2 with loud P2 component. S3 present. No S4. Grade 1 pansystolic murmur over the lower left parasternal border and apex. No systolic clicks, opening snap, pericardial knock, or pericardial friction rubs ARTERIAL PULSES: Carotids normal in volume and contour and without bruits. No palpable abdominal aorta. Femoral pulses 2+/2 Pedal pulses 2+/2 LOWER EXTREMITY EDEMA: - No edema. ABDOMEN: Abdomen soft nontender with normal bowel sounds. No abdominal bruits. No hepatomegaly, splenomegaly, or abdominal masses. - Liver span (right midclavicular line): 12 cm - Stool for occult blood ordered because patient being considered for anticoagulant therapy. ALLERGIES: Please see below. HOME MEDICATIONS: Please see below. CURRENT MEDICATIONS: Please see below. Electrocardiogram: ECG 07/08/2016 at 12:49 PM shows sinus rhythm with occasional PVCs and PACs, heart rate 95 BPM, atypical LBBB. QRSD 138 ms, left atrial abnormality, probable left atrial enlargement, marked left axis deviation, possible old inferior wall myocardial infarct. LABORATORY DATA: Please see below. IMAGING: I have independently visualized the patient's PHS x-ray acquired 07/08/2016 at 1: 07 PM. Moderate carotid megaly with LV dilatation. No primary vascular distribution. No interstitial or alveolar edema. No pleural effusions. Lung garcia clear. ASSESSMENT/PLAN: 1. Nonischemic dilated cardiomyopathy. 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 However, her brother had a nonischemic dilated cardiomyopathy (also thought to be alcohol related) and therefore the possibility of a familial cardiomyopathy is possible. She has chronic systolic and diastolic heart failure. I have independently visualized her echocardiogram Doppler performed during this hospitalization and she has low cardiac output state; I am not convinced nor strongly suspicious that she has a mural apical LV thrombus. She is compensated on examination at present and is currently NYHA functional class III. She has associated severe mitral regurgitation with structurally normal mitral leaflets, moderate-severe pulmonary artery hypertension, and severe tricuspid regurgitation. Her recent stroke is most likely cardioembolic and therefore I recommend long-term anticoagulation with warfarin (target INR 2.0-3.0); I recommend canceling the AMNA. At some point I would like to see the patient undergo cardiac MRI and also assessment for LVAD or cardiac transplantation however these will require her to have healthcare insurance; these issues were explained to the patient. She qualifies for a biventricular ICD and is waiting to get health care insurance so that this can occur. In the interim until she has healthcare insurance, I agree with patient having an external wearable ICD (Zoll) and I have completed paperwork for this. Recommend discontinuation of atorvastatin (not indicated). I will discontinue aspirin because she is being started on warfarin. Agree with digoxin, carvedilol , furosemide, spironolactone. Recommend addition of lisinopril beginning at 2.5 mg daily at bedtime. Once she has health insurance, I would like to get her switched over to Entresto. Recommend cardiac rehabilitation program. 2. Chronic systolic & diastolic heart failure. Secondary to nonischemic dilated cardiomyopathy. As per dilated cardiomyopathy above. 3. Nonrheumatic mitral regurgitation (severe). I think this patient's mitral regurgitation is severe on her echocardiogram Doppler. The patient's mitral regurgitation is secondary to mitral annular dilatation and altered LV/ papillary muscle geometry. Recommend afterload reduction with ACEI. 4. Atypical LBBB. Differential diagnosis would include nonspecific intraventricular conduction delay. Either way, she qualifies for placement of a biventricular ICD. 5. Nonsustained monomorphic ventricular tachycardia. Potassium and magnesium levels normal. Placement of ICD as explained above. I do not recommend use of antiarrhythmic agents at this time. 6. Abnormal ECG. ECG findings as described above. 7. Cigarette smoking. Patient was strongly encouraged to quit smoking. She prefers to quit smoking on her own. Health hazards of cigarette smoking explained to the patient included, but not all inclusive: Heart attacks, strokes , peripheral arterial disease, lung disease, lung cancer and other cancers. Thank you kindly for asking me to participate in the care of your patient. Vital Signs/I&O Vital Signs Date Time Temp Pulse Resp B/P Pulse Ox O2 Delivery O2 Flow Rate FiO2 07/10/16 19:34 96.2 92 18 110/87 97 Room Air I&O- Last 24 Hours up to 6 AM 07/10/16 06:00 Intake Total 2400 ml Output Total 700 ml Balance 1700 ml Height (in): 69 Weight (kg): 65.8 BMI (kg): 21.4 Laboratory Data Labs 24H Laboratory Tests 2 07/10/16 00:42: Magnesium Level 2.1 07/10/16 05:34: Magnesium Level 2.0, Anion Gap 9, Blood Urea Nitrogen 21H, Creatinine 0.83, Sodium Level 140, Potassium Level 4.4, Chloride Level 107, Carbon Dioxide Level 24, Calcium Level 8.6, Glomerular Filtration Rate > 60.0 CBC/BMP Laboratory Tests 07/10/16 00:42 07/10/16 05:34 Calcium Level 8.6, Red Blood Count 4.49, Mean Corpuscular Volume 96.0, Mean Corpuscular Hemoglobin 32.5, Mean Corpuscular Hemoglobin Concent 33.9, Red Cell Distribution Width 12.1 Home Medications Scheduled (Co Q-10) 100 Mg Cap 100 MG PO DAILY (Reported) Alpha Tocopheryl Acid Succinat (Vitamin E) 400 Unit Tab 400 UNIT PO DAILY ( Reported) Carvedilol (Carvedilol) 6.25 Mg Tab 6.25 MG PO BID (Reported) Digoxin (Digoxin) 0.125 Mg Tab 0.125 MG PO QPM (Reported) TAKES AT 1600 Furosemide (Furosemide) 20 Mg Tab 20 MG PO DAILY (Reported) Multivitamins *[facility] STOCKED* (Thera M Plus *[facility] STOCKED*) 1 Tab Tab 1 TAB PO DAILY (Reported) Potassium Chloride (Klor-Con M10) 10 Meq Tabcr 10 MEQ PO DAILY (Reported) Spironolactone (Spironolactone) 25 Mg Tab 25 MG PO DAILY (Reported) Current Medications Current Medications Aspirin (Aspirin Chewable) 81 mg DAILY PO Last administered on 07/10/16 08:00 ; Start 07/09/16 at 09:00; Stop 07/10/16 at 20:57; Status DC Aspirin (Aspirin) 325 mg STK-MED ONCE As Ordered ; Start 07/08/16 at 14:12; Stop 07/08/16 at 14:13; Status DC Atorvastatin Calcium (Lipitor) 20 mg QHS PO Last administered on 07/10/16 20: 58; Start 07/08/16 at 21:00; Stop 07/10/16 at 21:06; Status DC Carvedilol (COReg) 6.25 mg BID PO Last administered on 07/10/16 20:58; Start 07/08/16 at 21:00; Stop 08/07/16 at 20:59 Digoxin (Lanoxin) 0.125 mg DAILY@16 PO Last administered on 07/10/16 14:46; Start 07/09/16 at 16:00; Stop 08/08/16 at 15:59 Digoxin (Lanoxin) 0.125 mg DAILY@16 PO ; Start 07/10/16 at 16:00; Stop 07/10/16 at 16:00; Status DC Digoxin (Lanoxin) 0.125 mg DAILY@17 PO ; Start 07/10/16 at 17:00; Stop 07/10/16 at 17:00; Status DC Digoxin (Lanoxin) 0.125 mg QPM PO ; Start 07/08/16 at 21:00; Stop 07/09/16 at 17 :14; Status DC Enoxaparin Sodium (Lovenox) 60 mg Q12H SC ; Start 07/10/16 at 14:00; Stop at 13:59 Furosemide (Lasix) 20 mg DAILY PO Last administered on 07/10/16 12:31; Start 07/09/16 at 09:00; Stop 08/08/16 at 08:59 Heparin Sodium (Porcine) (Heparin) 5,000 units Q12H SQ ; Start 07/09/16 at 21:00 ; Stop 07/10/16 at 12:23; Status DC Home Med (Med Rec Complete!) ASDIRECTED XX ; Start 07/08/16 at 14:45; Stop at 14:45; Status DC Multivitamins (Theragram-M) 1 tab DAILY PO Last administered on 07/10/16 08:00 ; Start 07/08/16 at 09:00; Stop 08/07/16 at 08:59 Potassium Chloride (Micro-K Extencaps) 10 meq DAILY PO Last administered on 08:00; Start 07/09/16 at 09:00; Stop 08/08/16 at 08:59 Sodium Chloride (Saline Lock Flush) 2 ml ASDIRECTED PRN IV SEE LABEL COMMENTS; Start 07/10/16 at 16:45; Stop 08/09/16 at 16:44 Sodium Chloride (Saline Lock Flush) 2 ml SLF IV Last administered on 07/10/16 20:59; Start 07/10/16 at 22:00; Stop 08/09/16 at 21:59 Spironolactone (Aldactone) 25 mg DAILY PO Last administered on 07/10/16 08:00 ; Start 07/09/16 at 09:00; Stop 08/08/16 at 08:59; Status Future hold Vitamin E (Vitamin E) 400 units DAILY PO Last administered on 07/10/16 07:59; Start 07/08/16 at 09:00; Stop 07/10/16 at 20:13; Status DC Warfarin Sodium (Coumadin) 4 mg DAILY@17 PO Last administered on 07/10/16 21: 04; Start 07/10/16 at 17:00; Stop 07/17/16 at 16:59 Allergies Allergies: Coded Allergies: No Known Drug Allergy (Unverified Allergy, Unknown, 07/08/16) Vinnie Santana Jul 10, 2016 22:05
[2016-07-11] VITALS (7 sets, daily range): BP systolic 86–118; BP diastolic 55–69
[2016-07-11] MEDS: ENOXAPARIN 60 MG/0.6 ML SYR (J1650) SC SCH ×2 (02:40→15:18)
[2016-07-11 05:34] LABS: MEAN CORPUSCULAR HEMOGLOBIN 33.6 pg (27.0-33.0); MEAN CORPUSCULAR HGB CONC 34.9 g/dl (32.0-36.5); MEAN CORPUSCULAR VOLUME 96.2 fl (80.0-96.0); RED CELL DISTRIBUTION WIDTH 12.1 % (11.5-14.5); WHITE BLOOD COUNT 7.6 K/mm3 (4.0-10.0)
[2016-07-11 05:37] LABS: INR 1.15
[2016-07-11 05:52] LABS: ALBUMIN 3.3 GM/DL (3.2-5.2); ALBUMIN/GLOBULIN RATIO 1.18 (1.00-1.93); ALKALINE PHOSPHATASE 67 U/L (45-117); ALT/SGPT 34 U/L (12-78); ANION GAP 8 MEQ/L (8-16); AST/SGOT 16 U/L (15-37); BILIRUBIN,TOTAL 0.5 MG/DL (0.2-1.0); BLOOD UREA NITROGEN 21 MG/DL (7-18); CALCIUM LEVEL 8.7 MG/DL (8.5-10.1); CARBON DIOXIDE LEVEL 26 MEQ/L (21-32); CHLORIDE LEVEL 109 MEQ/L (98-107); CHOLESTEROL LEVEL 157 MG/DL (< 200); CREATININE FOR GFR 0.84 MG/DL (0.55-1.02); GLOMERULAR FILTRATION RATE > 60.0 (>51); GLUCOSE, FASTING 88 MG/DL (70-105); MAGNESIUM LEVEL 1.9 MG/DL (1.8-2.4); POTASSIUM SERUM 4.1 MEQ/L (3.5-5.1); SODIUM LEVEL 143 MEQ/L (136-145); TOTAL PROTEIN 6.1 GM/DL (6.4-8.2); TRIGLYCERIDES LEVEL 84 MG/DL (<150)
[2016-07-11] MEDS: SLF 3 ML SYR IV SCH ×3 (06:00→22:34)
[2016-07-11] MEDS: FUROSEMIDE 20 MG TAB PO SCH (09:00)
[2016-07-11] MEDS: CARVedilol 6.25 MG TAB PO SCH (09:00)
[2016-07-11] MEDS: SPIRONOLACTONE 25 MG TAB PO SCH (09:00)
[2016-07-11] MEDS: POTASSIUM CHLORIDE 10 MEQ SR TABLET PO SCH (09:00)
[2016-07-11] MEDS: MULTIVITAMINS/MINERALS THERAP 1 TAB PO SCH (09:01)
[2016-07-11] MEDS: DIGOXIN 0.125 MG TAB PO SCH (15:57)
--- NOTE | 2016-07-11 16:17 | IPN ---
DATE: 07/11/2016 TIME: 3:18 p.m. SUBJECTIVE: The patient reports absence of any dyspnea walking short distances in her room. No orthostatic lightheadedness or dizziness. No chest pain or chest discomfort. No palpitations. No other voiced complaints. Overall she feels well. PHYSICAL EXAMINATION: Pleasant, middle-aged appearing woman who appears to be normal body weight, who is not in any respiratory or psychologic distress. Temperature 96.4, pulse 81 (regular), respiratory rate 18, blood pressure 112/61, oxygen saturation 94% on room air. Jugular venous pulsations were at 3 cm. First and second heart sounds were diminished. Presence of an S3. Grade 1 pansystolic murmur at the lower left parasternal border and apex. Respiratory expansion effort was good. No crackles or wheezes. Abdomen was soft, nontender with normal bowel sounds. No lower extremity edema. Intake and output for 07/10/2016 show the patient to be net negative 995 mL. Weight 64.8 kg. Laboratory work 07/11/2016: PT/INR 1.15, BNP 2230. Sodium 143, potassium 4.1, chloride 109, CO2 26, BUN 21, creatinine 0.84, estimated GFR greater than 60, glucose 88, magnesium 1.9, albumin 3.3, triglycerides 84, cholesterol 157, total bilirubin normal, AST normal, ALT normal, alkaline phosphatase normal, LDH normal. ASSESSMENT AND PLAN: 1. Non-ischemic dilated cardiomyopathy. [place] Heart Association (NYHA) functional class II. Compensated on examination. Associated left bundle branch block. Associated severe mitral regurgitation and associated severe tricuspid regurgitation. When she goes home, she will be going home with a wearable external ICD (ZOLL). Once she is able to get healthcare insurance, the plan will be for her to have implantation of a biventricular implantable cardioverter defibrillator (ICD) electively as an outpatient. Continue carvedilol 6.25 mg twice a day, digoxin 0.125 mg daily, furosemide 20 mg daily, lisinopril 2.5 mg nightly, potassium chloride 10 mEq daily, spironolactone 25 mg daily. 2. Systolic and diastolic heart failure (chronic). As per dilated cardiomyopathy category above. 3. Severe mitral regurgitation. Nonrheumatic. No mitral valve prolapse. Continue vasodilator therapy with lisinopril. 4. Atypical left bundle branch block. Stable. Plan for outpatient biventricular ICD once the patient has healthcare insurance. 5. Nonsustained ventricular tachycardia. Plan for outpatient biventricular ICD. In the interim, she will go home with an external wearable ICD. Potassium and magnesium normal. 6. Abnormal ECG. As described. Stable. 7. Cigarette smoking. The patient prefers to quit smoking on her home. So far, she is doing well without cigarettes in the hospital.
[2016-07-11] MEDS: WARFARIN SOD 4 MG TAB PO SCH (17:21)
--- NOTE | 2016-07-11 22:02 | IPN ---
DATE: 07/11/2016 Patient seen and examined. No acute events overnight. Denies any fevers, chills, chest pain, pressure, or discomfort. No focal deficits. VITAL SIGNS: Temperature 96.4, pulse 91, respirations 18, blood pressure 112/61, pulse oximetry 94% on room air. LABORATORY DATA: WBC 7.6, hemoglobin and hematocrit 14.6/41.9, platelets 148. Chemistry: Sodium 143, potassium 4.1, chloride 109, bicarbonate 26, BUN 21, creatinine 0.84. PHYSICAL EXAMINATION: GENERAL: Patient alert and oriented times three in no acute distress. HEENT: Normocephalic, atraumatic. CARDIAC: S1, S2, diminished S3. Grade 1 pansystolic murmur at the left parasternal border and apex. RESPIRATORY: Bilaterally clear to auscultation. No wheezes, rales, or rhonchi. ABDOMEN: Soft, nontender, nondistended. EXTREMITIES: No edema, bilateral lower extremities. ASSESSMENT AND PLAN: This is a 50-year-old female patient, smoker, with underlying medical history of nonischemic dilated cardiomyopathy with congestive heart failure, both systolic and diastolic dysfunction, ejection fraction 5-10%, in need of biventricular pacemaker and defibrillator since December 2015. Patient lacked insurance. Patient initially sees Dr. Mandujano in [place], but given it is pretty inconvenient for her, patient would like to switch to [place] near [place]. Admits to smoking. Admitted for acute cerebrovascular accident (CVA). 1. Acute CVA. Neurology consulted. Neurologic checks, telemetry. Possible etiology cardioembolic. Aspirin, statin. Monitor blood pressure. Patient on Coreg, digoxin, spironolactone, Lasix. Hypercoagulable workup sent. Echo appreciated. As per Dr. Santana, after re-evaluation, less likely showing apical mural thrombus, but given that further study in terms of transesophageal echocardiogram (AMNA) is quit risky in patient with such a low ejection fraction, and stroke is most likely cardioembolic given patient's cardiac history, I would like to anticoagulate patient with Lovenox bridging to Coumadin. MRI/MRA of the brain were appreciated. MRA of the carotid appreciated. Patient likely will need neurologic checks, telemetry monitoring. Patient refused transfer to [place] for further care. 2. New unruptured left ophthalmic artery aneurysm, 3.[address] Arenas , the patient will need to followup with Dr. Gonzalo Cruz at [facility] for further evaluation and management. 3. Smoking. Smoking cessation encouraged. Counseling provided. 4. Hypertension. Blood pressure medications ordered. 5. Nonischemic dilated cardiomyopathy. Ejection fraction 5-10%. Echo appreciated. Digoxin, Lasix, spironolactone, beta saw, statin. Aspirin has been discontinued given patient was placed on anticoagulation with Lovenox bridged to Coumadin. Cardiology, Dr. Santana, has been consulted. Angiotensin-converting enzyme (THALIA) inhibitor has been added. Patient will need a biventricular automatic implantable cardioverter-defibrillator (AICD) pacemaker, possibly referring to transfer center for cardiac transplant, but given patient is in the process of obtaining insurance, will see if the patient can get a Zoll life vest for temporary protection. Followup cardiology recommendation from Dr. Santana. Appreciate his assistance. 6. Deep vein thrombosis (DVT) prophylaxis. Patient on Lovenox bridged to Coumadin. DISPOSITION: Patient pending therapeutic INR. Zoll life vest monitoring. Patient and family services (PFS) consulted. Physical therapy (PT)/speech and swallow evaluation done. Continue cardiac rehabilitation as ordered. Patient with very severe dilated cardiomyopathy with multiple valvular disease. Poor overall prognosis. MTDD
[2016-07-11] MEDS: LISINOPRIL *2.5 MG* TAB PO SCH (22:33)
[2016-07-11] MEDS: METOPROLOL SUCC *XL* 25MG TAB (TopROL *XL*) PO SCH (22:34)
[2016-07-12 01:01] LABS: POTASSIUM SERUM 3.9 MEQ/L (3.5-5.1)
[2016-07-12] MEDS: ENOXAPARIN 60 MG/0.6 ML SYR (J1650) SC SCH ×2 (02:39→14:53)
[2016-07-12 05:06] VITALS: BP 92/51
[2016-07-12 05:18] LABS: MEAN CORPUSCULAR HEMOGLOBIN 32.5 pg (27.0-33.0); MEAN CORPUSCULAR HGB CONC 33.5 g/dl (32.0-36.5); RED CELL DISTRIBUTION WIDTH 12.2 % (11.5-14.5); WHITE BLOOD COUNT 6.5 K/mm3 (4.0-10.0)
[2016-07-12 05:23] LABS: INR 1.24
[2016-07-12 05:27] LABS: ANION GAP 9 MEQ/L (8-16); BLOOD UREA NITROGEN 20 MG/DL (7-18); CALCIUM LEVEL 8.9 MG/DL (8.5-10.1); CARBON DIOXIDE LEVEL 26 MEQ/L (21-32); CHLORIDE LEVEL 107 MEQ/L (98-107); CREATININE FOR GFR 0.75 MG/DL (0.55-1.02); GLOMERULAR FILTRATION RATE > 60.0 (>51); GLUCOSE, FASTING 82 MG/DL (70-105); MAGNESIUM LEVEL 1.9 MG/DL (1.8-2.4); POTASSIUM SERUM 3.9 MEQ/L (3.5-5.1); SODIUM LEVEL 142 MEQ/L (136-145)
[2016-07-12] MEDS: SLF 3 ML SYR IV SCH ×3 (05:37→21:44)
[2016-07-12 08:00] VITALS: BP 93/63
[2016-07-12 08:06] LABS: PROTEIN C ANTIGEN 84 % (60-150); PROTEIN S ANTIGEN FREE 139 % (57-157); PROTEIN S ANTIGEN TOTAL 107 % (60-150)
[2016-07-12] MEDS: MULTIVITAMINS/MINERALS THERAP 1 TAB PO SCH (08:46)
[2016-07-12] MEDS: SPIRONOLACTONE 25 MG TAB PO SCH (08:46)
[2016-07-12] MEDS: FUROSEMIDE 20 MG TAB PO SCH (08:47)
[2016-07-12] MEDS: POTASSIUM CHLORIDE 10 MEQ SR TABLET PO SCH (08:47)
[2016-07-12] MEDS: METOPROLOL SUCC *XL* 25MG TAB (TopROL *XL*) PO SCH ×2 (08:47→21:09)
[2016-07-12 12:00] VITALS: BP 86/44
--- NOTE | 2016-07-12 13:05 | IPN ---
DATE OF SERVICE: 07/12/2016 TIME OF SERVICE: 11:51 a.m. SUBJECTIVE: Patient reports absence of any exertional dyspnea ambulating in her room. No orthopnea or paroxysmal nocturnal dyspnea (PND). She reports that since changing from carvedilol to metoprolol that she feels that her heart and her chest feels more "calmed down." No palpitations at present. No chest pain or chest discomfort. No dizziness or lightheadedness. No leg or ankle swelling. No epigastric discomfort. She feels well and has no voice complaints. PHYSICAL EXAMINATION: Pleasant, , middle-age appearing woman who is not in any respiratory or psychologic distress. Normal body weight. Weight 64.2 kg. Temperature 96.3, pulse 60 (regular), respiratory rate 20, blood pressure 93/63, oxygen saturation 99% on room air. Jugular venous pulsations were at 3 cm. Normal first and second heart sounds. Presence of an S3. No S4. Grade 1 pansystolic murmur at the apex and low left parasternal border. Respiratory expansion effort was good. No crackles or wheezes. Abdomen was soft, nontender with normal bowel sounds. No lower extremity edema. Mood and affect were normal. Speech was normal. LABORATORY WORK: 07/12/2016 was reviewed: PT/INR 1.24. Sodium 142, potassium 3.9, chloride 107, CO2 26, creatinine 0.75, estimated GFR greater than 60, glucose 82, magnesium 1.9. ASSESSMENT AND PLAN: 1. Nonischemic dilated cardiomyopathy. Currently [place] Heart [employer] (NYHA) Functional Class II. Compensated on examination. Once her PT/INR gets very close to therapeutic, she can be discharged home. She would be discharged home with a wearable external cardiac defibrillator. She is awaiting acquiring medical insurance. Once she has medical insurance, she would be referred for placement of a biventricular implantable cardioverter defibrillator (ICD). Also, once she has medical insurance, my plan is to refer her as an outpatient to a center that provides advanced heart failure therapy such as ventricular assist device and cardiac transplantation. She is mildly hypotensive, but not symptomatic and her renal function is remaining normal. I decided yesterday to switch her from carvedilol to metoprolol succinate because I think that metoprolol succinate would do a better job of lowering her heart rate and, without the alpha blocking properties, I will be able to use an angiotensin-converting enzyme (THALIA) inhibitor. Once she has medical insurance, I would like to consider switching her electively from an THALIA inhibitor to Entresto. For now, the plan will be to continue metoprolol succinate 25 mg twice a day, lisinopril 2.5 mg nightly, digoxin 0.125 mg daily, furosemide 20 mg by mouth daily, spironolactone 25 mg daily. 2. Chronic systolic and diastolic heart failure. As per dilated cardiomyopathy discussion above. 3. Moderately-severe mitral regurgitation. Mitral regurgitation is secondary to dilated cardiomyopathy. She is on THALIA inhibitor. Continue THALIA inhibitor, 4. Atypical left bundle branch block. Once patient has medical insurance, she will be considered for placement of a biventricular implantable cardioverter defibrillator (ICD). 5. Premature ventricular contractions (PVCs) and nonsustained monomorphic ventricular tachycardia. Discussion of future ICD, as above. Potassium and magnesium in the normal range. 6. Abnormal ECG. Stable. 7. Cigarette smoking. Patient is doing just fine off of cigarettes here in hospital. She prefers to quit smoking on her own.
[2016-07-12 16:00] VITALS: BP 98/54
[2016-07-12] MEDS: DIGOXIN 0.125 MG TAB PO SCH (16:37)
[2016-07-12] MEDS: WARFARIN SOD 5 MG TAB PO SCH (16:39)
[2016-07-12 20:00] VITALS: BP 116/84
[2016-07-12] MEDS: LISINOPRIL *2.5 MG* TAB PO SCH (21:08)
[2016-07-12 23:59] VITALS: BP 99/74
[2016-07-13] MEDS: ENOXAPARIN 60 MG/0.6 ML SYR (J1650) SC SCH (02:36)
[2016-07-13] MEDS: SLF 3 ML SYR IV SCH ×3 (04:00→22:00)
[2016-07-13 04:59] VITALS: BP 86/56
[2016-07-13 05:41] LABS: MEAN CORPUSCULAR HEMOGLOBIN 32.2 pg (27.0-33.0); MEAN CORPUSCULAR HGB CONC 31.9 g/dl (32.0-36.5); RED CELL DISTRIBUTION WIDTH 13.1 % (11.5-14.5); WHITE BLOOD COUNT 6.9 K/mm3 (4.0-10.0)
[2016-07-13 05:44] LABS: INR 1.67
[2016-07-13 05:48] LABS: ANION GAP 8 MEQ/L (8-16); BLOOD UREA NITROGEN 17 MG/DL (7-18); CARBON DIOXIDE LEVEL 26 MEQ/L (21-32); CHLORIDE LEVEL 109 MEQ/L (98-107); GLOMERULAR FILTRATION RATE > 60.0 (>51); GLUCOSE, FASTING 84 MG/DL (70-105); MAGNESIUM LEVEL 2.1 MG/DL (1.8-2.4); POTASSIUM SERUM 4.2 MEQ/L (3.5-5.1); SODIUM LEVEL 143 MEQ/L (136-145)
[2016-07-13 08:00] VITALS: BP 89/65
[2016-07-13] MEDS: FUROSEMIDE 20 MG TAB PO SCH (08:57)
[2016-07-13] MEDS: MULTIVITAMINS/MINERALS THERAP 1 TAB PO SCH (08:57)
[2016-07-13] MEDS: POTASSIUM CHLORIDE 10 MEQ SR TABLET PO SCH (08:57)
[2016-07-13] MEDS: SPIRONOLACTONE 25 MG TAB PO SCH (08:58)
[2016-07-13] MEDS: METOPROLOL SUCC (TopROL XL) 50MG **XL** TAB PO SCH (08:59)
[2016-07-13] MEDS: LISINOPRIL *2.5 MG* TAB PO SCH ×2 (08:59→20:12)
--- NOTE | 2016-07-13 09:04 | IPN ---
DATE: 07/12/2016 Patient is seen and examined. No acute events overnight. Denies any fevers, chills, chest pain, pressure or discomfort. Denies any focal deficits. Currently comfortable. VITAL SIGNS: Temperature 96.7, pulse 75, respirations 20, blood pressure 186/44, pulse oximetry 96% on room air. LABORATORY DATA: WBC 6.5, hemoglobin and hematocrit 14.7/44, platelets 157. Chemistry: Sodium 142, potassium 39, chloride 107, BUN 20, creatinine 0.75, magnesium 2. PHYSICAL EXAMINATION: GENERAL: Patient alert and oriented times three in no acute distress. HEENT: Normocephalic, atraumatic. CARDIAC: S1, S2, diminished S3. Grade 1 pansystolic murmur at the left parasternal border and apex. RESPIRATORY: Bilaterally clear to auscultation. No wheezes, rales, or rhonchi. ABDOMEN: Soft, nontender, nondistended. EXTREMITIES: No edema, bilateral lower extremities. ASSESSMENT AND PLAN: This is a 50-year-old female patient, smoker, with underlying medical history of nonischemic dilated cardiomyopathy and congestive heart failure, both systolic and diastolic dysfunction, ejection fraction 5% to 10%, in need of biventricular pacemaker with defibrillator since December 2015. Patient lacked insurance. Initially sees Dr. Mandujano in [place], but given that the patient lives in [place] is inconvenient for her and would like to switch to client engagement specialist in [place]. Admits to smoking. Admitted for acute cerebrovascular accident (CVA). 1. Acute CVA. Neurology consulted. Neurologic checks, telemetry monitoring. Possible etiology cardioembolic. Aspirin has been discontinued. Initially, patient was placed on aspirin, currently discontinued given patient is started on anticoagulation with Lovenox bridged to Coumadin for possible cardioembolic stroke. Statin has also been discontinued by cardiology. Monitor blood pressure. Patient currently is on Lasix, lisinopril, metoprolol, spironolactone. Neurologic checks. Appreciate neurology's assistance. MRI/MRA of the brain appreciated. MRA of the carotids also appreciated. On Lovenox bridged to Coumadin. Refused transfer to [place] for further care. 2. New unruptured left ophthalmic artery aneurysm, 3.[address] Arenas, patient will need to followup with Dr. Gonzalo Cruz at [facility] for further evaluation and management. 3. Smoking. Smoking cessation encouraged. Counseling provided. 4. Hypertension. Continue blood pressure medications as ordered. 5. Nonischemic dilated cardiomyopathy. Ejection fraction 5% to 10%. Echocardiogram appreciated. Continue Digoxin, Lasix, lisinopril, metoprolol, spironolactone, warfarin to prevent cardioembolic stroke. Cardiology, Dr. Santana, consulted. Patient will need a biventricular pacemaker and automatic implantable cardioverter-defibrillator (AICD). Dr Santana says in the future that the patient will need to be referred to transplant center, but given the patient does not have insurance and the patient is in the process of obtaining insurance, we will see if we can obtain Zoll life vest for the patient for temporary protection. Telemetry monitoring. Appreciate cardiology's assistance. 6. Deep vein thrombosis (DVT) prophylaxis. Lovenox treatment dose bridging to Coumadin. DISPOSITION: Pending therapeutic international normalized ratio (INR). Patient and family services (PFS) consulted for possible arrangement of Zoll life vest monitoring. Physical therapy (PT)/speech and swallow appreciated. Cardiac rehabilitation as ordered. Patient with very severe dilated cardiomyopathy with multiple valvular disease. Poor overall prognosis.
[2016-07-13 12:00] VITALS: BP 85/57
--- NOTE | 2016-07-13 13:08 | IPN ---
CARDIOLOGY PROGRESS NOTE: 07/13/2016 Time: 12:15 PM. SUBJECTIVE: The patient is not having any dyspnea, ambulating in the room. No orthopnea or paroxysmal nocturnal dyspnea (PND). No leg or ankle swelling. No chest pain or chest discomfort. No nausea or vomiting. No lightheadness or dizziness. No voiced complaints. She reports feeling well. PHYSICAL EXAMINATION: Pleasant, middle-age appearing who appears to be normal body weight. No in any respiratory or psychological distress. Temperature 96.5, pulse 78 (regular), respiratory rate 16, blood pressure 89/65, O2 saturation 95% on room air. Jugular venous pulsations were at 3-4 cm. First and second heart sounds were mildly diminished. The presence of a soft S3. No S4. Grade I pansystolic murmur at the apex and lower left parasternal border. Normal breath sounds. Good respiratory expansion and effort. No crackles or wheezes. Abdomen is soft, nontender with normal bowel sounds. No lower extremity edema. Mood and affect was normal. Speech was normal. Input and output for 24 hours of 07/12/2016 showed the patient to be net fluid positive 1090 mL. LABORATORY WORK: 07/13/2016: Sodium 143, potassium 4.2, chloride 109, CO2 26, BUN 17, creatinine 0.80. Estimated GFR greater than 60, glucose 84. PT/INR 1.67. ASSESSMENT AND PLAN: 1. Nonischemic dilated cardiomyopathy. Prior history of chronic alcohol intake for which the patient has stopped. Also family history of dilated myopathy. Chronic diastolic heart failure. Currently NYHA functional class III. She is compensated on examination. Although the blood pressure is low, she has normal mentation, is producing adequate urine and renal function staying stable and she has no complaints of dizziness or lightheadedness. Other significant contributing conditions include severe mitral regurgitation and severe tricuspid regurgitation. Continue digoxin 0.125 mg daily, furosemide 20 mg daily, lisinopril 2.5 mg twice a day, metoprolol succinate 50 mg daily, potassium chloride 10 mEq daily, spironolactone 25 mg daily. 2. Systolic and diastolic heart failure (chronic). As per dilated cardiomyopathy above. 3. Chronic moderately severe mitral regurgitation. Secondary to dilated cardiomyopathy. She is tolerating lisinopril. Continue lisinopril 2.5 mg twice a day. 4. Atypical left bundle branch block. Once the patient has health insurance, the plan will be to refer her for consideration of a biventricular automatic implantable cardioverter-defibrillator (AICD). 5. Nonsustained monomorphic ventricular tachycardia. Asymptomatic. The patient will be going home with external wearable automatic cardioverter defibrillator. 6. Abnormal ECG. Stable. 7. Cigarette smoking. The patient is doing well without cigarettes while she is in hospital. She prefers to quit on her own.
[2016-07-13] MEDS: ENOXAPARIN 30 MG/0.3 ML SYR (J1650) SC SCH (14:35)
[2016-07-13 16:00] VITALS: BP 109/83
[2016-07-13] MEDS: WARFARIN SOD 5 MG TAB PO SCH (16:18)
[2016-07-13] MEDS: DIGOXIN 0.125 MG TAB PO SCH (16:19)
[2016-07-13 20:00] VITALS: BP 100/54
[2016-07-13 23:56] VITALS: BP 92/52
[2016-07-14] MEDS: ENOXAPARIN 30 MG/0.3 ML SYR (J1650) SC SCH (02:49)
[2016-07-14 04:00] VITALS: BP 90/50
[2016-07-14 05:20] LABS: MEAN CORPUSCULAR HEMOGLOBIN 32.8 pg (27.0-33.0); MEAN CORPUSCULAR HGB CONC 33.3 g/dl (32.0-36.5); MEAN CORPUSCULAR VOLUME 98.6 fl (80.0-96.0); RED CELL DISTRIBUTION WIDTH 12.2 % (11.5-14.5); WHITE BLOOD COUNT 5.7 K/mm3 (4.0-10.0)
[2016-07-14 05:30] LABS: INR 2.43
[2016-07-14 06:00] LABS: ANION GAP 6 MEQ/L (8-16); BLOOD UREA NITROGEN 19 MG/DL (7-18); CALCIUM LEVEL 8.8 MG/DL (8.5-10.1); CARBON DIOXIDE LEVEL 29 MEQ/L (21-32); CHLORIDE LEVEL 107 MEQ/L (98-107); CREATININE FOR GFR 0.92 MG/DL (0.55-1.02); GLOMERULAR FILTRATION RATE > 60.0 (>51); GLUCOSE, FASTING 78 MG/DL (70-105); MAGNESIUM LEVEL 2.1 MG/DL (1.8-2.4); POTASSIUM SERUM 4.7 MEQ/L (3.5-5.1); SODIUM LEVEL 142 MEQ/L (136-145)
[2016-07-14] MEDS: SLF 3 ML SYR IV SCH (06:00)
[2016-07-14 08:00] VITALS: BP 116/80
[2016-07-14] MEDS: MULTIVITAMINS/MINERALS THERAP 1 TAB PO SCH (08:15)
[2016-07-14] MEDS: FUROSEMIDE 20 MG TAB PO SCH (08:16)
[2016-07-14] MEDS: SPIRONOLACTONE 25 MG TAB PO SCH (08:16)
[2016-07-14] MEDS: POTASSIUM CHLORIDE 10 MEQ SR TABLET PO SCH (08:16)
[2016-07-14 08:17] VITALS: BP 116/80
[2016-07-14] MEDS: LISINOPRIL *2.5 MG* TAB PO SCH (08:17)
[2016-07-14] MEDS: METOPROLOL SUCC (TopROL XL) 50MG **XL** TAB PO SCH (08:18)
--- NOTE | 2016-07-14 08:25 | IPN ---
DATE: 07/13/2016 Patient seen and examined. No acute events overnight. Denies any chest pain, pressure, discomfort. Denies any shortness of breath. Patient currently feels at baseline. VITAL SIGNS: Temperature 96.7, pulse 95, respirations 18, blood pressure 109/83, pulse oximetry 97% on room air. LABORATORY DATA: WBC 6.9, hemoglobin and hematocrit 14.6/45.9, platelets 168. Chemistry: Sodium 143, potassium 4.2, chloride 109, bicarbonate 26, BUN 17, creatinine 0.8. PHYSICAL EXAMINATION: GENERAL: Patient alert, oriented times three, in no acute distress. HEENT: Normocephalic, atraumatic. PULMONARY: Bilateral clear to auscultation. CARDIAC: S1, S2, diminished S3. Grade 1 pansystolic murmur at the left parasternal border and apex. ABDOMEN: Soft, nontender, nondistended. Positive bowel sounds. EXTREMITIES: No edema bilateral lower extremities. ASSESSMENT AND PLAN: This is a 50-year-old female patient, a smoker, underlying medical history of nonischemic dilated cardiomyopathy, congestive heart failure, both systolic and diastolic dysfunction, ejection fraction 5-10%, in need of biventricular pacemaker with defibrillator since June 2015. Patient lacked insurance and currently is pending disability insurance. Initially sees Dr. Mandujano in [place], but given patient lives in [place] patient reported extremely inconvenient for her, therefore wished to switch to professor of surgery in [place]. Admits to smoking. Admitted for acute cerebrovascular accident (CVA). 1. Acute CVA. Neurology consulted. Neurologic checks. Telemetry monitoring. Possible etiology cardioembolic. Aspirin initially has been given, currently discontinued. As per Dr. Santana, recommended anticoagulation with Lovenox bridged to Coumadin for likely cardioembolic stroke. Statin has been discontinued by cardiology as well. Continue to monitor blood pressure. Patient currently on Lasix, lisinopril, metoprolol, spironolactone, neuro checks. Appreciate neurology's assistance. MRI/MRA of the brain appreciated. MRA of the carotid also appreciated. Echo is appreciated. Currently on Lovenox switched to Coumadin. Refused to transfer to [place] for further care. 2. New unruptured left ophthalmic artery aneurysm, 3.[address] Arenas, patient will need to followup with vascular surgery, Dr. Gonzalo Cruz, in [facility] for further evaluation and management. 3. Smoking. Smoking cessation encouraged. Counseling provided. 4. Hypertension. Continue blood pressure medication as ordered. 5. Nonischemic dilated cardiomyopathy. Ejection fraction (EF) of 5-10%. Echo appreciated. Continue Digoxin, Lasix, lisinopril, metoprolol, spironolactone, Coumadin to prevent cardiac embolic stroke. Cardiology, Dr. Santana, consulted. Patient in need of biventricular pacemaker and automatic implantable cardioverter defibrillator (AICD). As per Dr. Santana, given that patient does not have insurance and cannot pay for the procedure, Dr. Santana will arrange for the procedure in a future day once the patient's insurance gets approved and patient will need further referral to transplant center once obtaining insurance. In the meantime, we will try to obtain Zoll life vest for the patient for temporary protection if it is financially feasible. Telemetry monitoring. Appreciate cardiology assistance. 6. Deep vein thrombosis (DVT) prophylaxis. Lovenox bridged to Coumadin. DISPOSITION: Pending therapeutic international normalized ratio (INR). Patient and family services (PFS) to arrange for Zoll life vest. Physical therapy (PT). Speech and swallow appreciated. Cardio rehabilitation. Patient with severe dilated cardiomyopathy and multiple valvular disease. Poor overall prognosis.
[2016-07-14] MEDS ORDERED: METO-207 PO (10:19)
[2016-07-14] MEDS ORDERED: LISI25TA PO (10:19)
[2016-07-14] MEDS ORDERED: COUM1TAB17 PO (10:19)
[2016-07-14 12:00] VITALS: BP 139/82
[2016-07-14] MEDS ORDERED: WARFARIN SOD 5 MG TAB PO SCH (17:00)
--- NOTE | 2016-07-15 08:03 | DSES ---
DATE OF ADMISSION: 07/08/2016 DATE OF DISCHARGE: 07/14/2016 PRIMARY CARE PROVIDER: None. Arrangements are made for the patient to have a primary care provider with Dr. Dale Osman. Cardiology, initially Dr. Mandujano. The patient was switched to Dr. Santana as per patient request. Neurology, Dr. Arenas. FINAL DIAGNOSIS: 1. Acute cerebral vascular accident (CVA). 2. New unruptured left ophthalmic artery aneurysm. 3. Smoking. 4. Hypertension. 5. Nonischemic dilated cardiomyopathy. 6. Valvular heart disease. HISTORY OF PRESENT ILLNESS: This is a 50-year-old female patient with underlying medical history of dilated cardiomyopathy nonischemic, congestive heart failure (CHF) with very low ejection fraction, supposed to get an automatic implantable cardio converter-defibrillator (AICD) as per patient since December 2015 but has not been able to get her insurance, therefore unable to get the care that she needs. As per patient she was going to shower on the morning of admission at approximately 9 a.m. and realized that she was unable to figure out how to turn on the shower. She could not understand why she suddenly lost her knowledge to do so. At about the same time she realized that her right arm was not working correctly with mild weakness throughout upper and lower extremity, especially with gripping. Subsequently she called out to her but was unable to speak, only noise came out. She stated that her mind was working perfectly well but she was unable to speak and at the time her hand was unable to perform other tasks. After the shower she was still unable to speak. Hoping that it would go away she went downstairs to watch television (TV). Fortunately for her, her symptoms did improve and her right hand returned to normal but she still had some aphasia, therefore she was brought to the emergency room by her and daughter at approximately 12:[address] of the head without contrast was negative. MRI/MRA was done. Subsequently the patient was admitted. MRA of the brain showed 3.9 mm left ophthalmic artery aneurysm. MRI of the brain shows small acute left parietal infarct. Echocardiogram done shows severe dilated cardiomyopathy with multiple valvular disorder disease and also ejection fraction 5-10%. The case was discussed with Dr. Esqueda at [place] stating that the patient is supposed to get a biventricular AICD but has not returned for followup. As per the patient she does not have insurance, therefore she cannot get it. Arrangements are made. The patient was asked if she would be okay with transfer to [facility]. The patient has refused stating that it was too far away for her and she does not have insurance. She will go to [facility] once she has insurance and she would also like to transfer her cardiology service to [place] given it is more convenient. Subsequently, cardiology, Dr. Santana was consulted. The patient's medication was adjusted and echocardiogram was appreciated given that as per Dr. Santana her stroke is possibly related to cardio-embolic and it is recommended to keep her on anticoagulation. Subsequently, the patient was placed on anticoagulation. The patient's cardiac medication was optimized by Dr. Santana. Physical therapy, speech and swallow was done. The patient currently feels comfortable. Social work was consulted for lack of insurance and also to assist and see if we can get the patient on Zoll life vest but unfortunately, the patient does not qualify for payment plan on Medicaid, therefore, the patient will not be able to get a Zoll life vest. After the patient's international normalized ratio (INR) was therapeutic, the patient was discharged home for further followup with cardiology and neurology. Furthermore, the patient needed to followup with vascular surgery, Dr. Gonzalo Cruz at [place]. Dr. Arenas said he would make arrangements for the ophthalmic artery aneurysm. Currently the patient is tolerating oral, very comfortable, back to baseline and ready for discharge for further care as an outpatient. Dr. Santana will attempt to arrange for a biventricular automatic implantable cardio converter-defibrillator (AICD). VITAL SIGNS: Temperature 96.6, pulse 65, respirations 18, blood pressure 139/82, pulse oximetry 99% on room air. LABORATORY: WBC 5.7, hemoglobin 14.6, hematocrit 44, platelets 163. Chemistries: Sodium 142, potassium 4.7, chloride 107, bicarbonate 29, BUN 19, creatinine 0.9. DISCHARGE MEDICATIONS: - lisinopril 2.5 mg by mouth twice a day - metoprolol succinate 50 mg by mouth daily - Coumadin 4 mg by mouth daily, followup INR in three days - vitamin E 400 units by mouth daily - CO Enzyme Q10 1 tablet by mouth daily - digoxin 0.125 mg by mouth nightly - Lasix 20 mg by mouth daily - multivitamin one tablet by mouth daily - potassium chloride 10 mEq by mouth daily - spironolactone 25 mg by mouth daily DISCHARGE INSTRUCTIONS: The patient is instructed to followup with cardiology, Dr. Santana in 10 days. Followup with primary care provider in five days. Followup INR in 3-5 days with primary care provider. Followup with neurology, Dr. Arenas to make a referral to vascular surgery in [place] for further care of the ophthalmic artery aneurysm. Return to the hospital if symptoms worsen.
[2016-07-15 14:14] LABS: SJOGREN'S ANTI SS-A <0.2 AI (0.0-0.9); SJOGREN'S ANTI SS-B <0.2 AI (0.0-0.9)
== END 2016-07-14 12:45 | disposition home or self-care (01) | DRG 45 ==
LOC: M ED 12:30 → M ED INP 15:21 → M PCU 18:30
PROVIDERS: ADMIT Internal Medicine; ATTEND Hospitalist
DX: I63.9 Cerebral infarction, unspecified (principal); I47.2 Ventricular tachycardia; I42.0 Dilated cardiomyopathy; I38 Endocarditis, valve unspecified; I72.8 Aneurysm of other specified arteries; I50.42 Chronic combined systolic (congestive) and diastolic (congestive) heart failure; I36.1 Nonrheumatic tricuspid (valve) insufficiency; I10 Essential (primary) hypertension; F17.210 Nicotine dependence, cigarettes, uncomplicated; I69.320 Aphasia following cerebral infarction; I34.0 Nonrheumatic mitral (valve) insufficiency; I44.7 Left bundle-branch block, unspecified; Z79.899 Other long term (current) drug therapy; Z98.51 Tubal ligation status; Z82.49 Family history of ischemic heart disease and other diseases of the circulatory system

== ENCOUNTER → 2016-07-17 | Outpatient (CLI) | payer SELFPAY ==
[~2016-07-17] MED LIST: CARV6.25 PO; CO Q1CAP PO; COUM1TAB17 PO; DIGO0.12 PO; FURO20TA2 PO; LISI25TA PO; METO-207 PO; NATU400T PO; POTA10CA PO; SPIR25TA2 PO; VITMTA PO
[2016-07-17 13:30] LABS: INR 2.99
== END ==
LOC: M SMT 09:25
PROVIDERS: ATTEND Hospitalist
DX: Z51.81 Encounter for therapeutic drug level monitoring (principal)

== ENCOUNTER → 2016-09-29 | Outpatient (CLI) | payer OTHER | LOC: M SMT 10:00 | PROVIDERS: ATTEND Internal Medicine Cardiovascular Disease | DX: Z51.81 Encounter for therapeutic drug level monitoring (principal); Z79.01 Long term (current) use of anticoagulants; I42.0 Dilated cardiomyopathy ==

== ENCOUNTER 2018-05-17 11:05 | Inpatient (IN) | payer OTHER ==
[2018-05-17 12:01] LABS: BASO # 0.1 10^3/uL (0.0-0.2); BASO % 0.5 % (0.0-1.0); EOS % 0.4 % (0.0-3.0); HEMATOCRIT 19.6 % (36.0-47.0); IMMATURE GRANULOCYTE % 0.3 % (0-3.0); LYMPH # 2.3 10^3/uL (1.5-4.5); LYMPH % 24.3 % (24.0-44.0); MEAN CORPUSCULAR HEMOGLOBIN 33.3 pg (27.0-33.0); MEAN CORPUSCULAR HGB CONC 33.2 g/dl (32.0-36.5); MEAN CORPUSCULAR VOLUME 100.5 fl (80.0-96.0); MONO # 0.7 10^3/uL (0.0-0.8); MONO % 6.9 % (0.0-5.0); NEUTROPHILS # 6.3 10^3/uL (1.8-7.7); NEUTROPHILS % 67.6 % (36.0-66.0); PLATELET COUNT, AUTOMATED 248 10^3/uL (150-450); RED BLOOD COUNT 1.95 10^6/uL (4.00-5.40); RED CELL DISTRIBUTION WIDTH 15.4 % (11.5-14.5); WHITE BLOOD COUNT 9.4 10^3/uL (4.0-10.0)
[2018-05-17 12:11] LABS: HEMOGLOBIN 6.5 g/dl (12.0-15.5); INR 1.01; PROTHROMBIN TIME 13.4 SECONDS (12.1-14.4)
[2018-05-17 12:12] LABS: PARTIAL THROMBOPLASTIN TIME 22.9 SECONDS (25.4-37.6)
[2018-05-17 12:18] LABS: ALBUMIN 3.4 GM/DL (3.2-5.2); ALBUMIN/GLOBULIN RATIO 1.31 (1.00-1.93); ALKALINE PHOSPHATASE 44 U/L (45-117); ALT/SGPT 31 U/L (12-78); ANION GAP 10 MEQ/L (8-16); AST/SGOT 28 U/L (7-37); BILIRUBIN,DIRECT 0.2 MG/DL (0.0-0.2); BILIRUBIN,TOTAL 0.6 MG/DL (0.2-1.0); BLOOD UREA NITROGEN 22 MG/DL (7-18); CALCIUM LEVEL 8.6 MG/DL (8.5-10.1); CARBON DIOXIDE LEVEL 22 MEQ/L (21-32); CHLORIDE LEVEL 104 MEQ/L (98-107); CPK CREATINE PHOSPHOKINASE 68 U/L (26-192); CREATININE FOR GFR 0.93 MG/DL (0.55-1.30); FREE T4 1.17 NG/DL (0.76-1.46); GLOMERULAR FILTRATION RATE > 60.0 (>51); GLUCOSE, FASTING 113 MG/DL (70-100); LIPASE 234 U/L (73-393); MB/CK RELATIVE INDEX 3.24 (< OR =4); NT-PRO BNP 6409 PG/ML (<125); POTASSIUM SERUM 5.2 MEQ/L (3.5-5.1); SODIUM LEVEL 136 MEQ/L (136-145); THYROXINE (T4) 10.9 UG/DL (4.5-12.0)
[2018-05-17 12:46] LABS: LACTIC ACID SEPSIS PROTOCOL 2.4 MMOL/L (0.4-2.0)
[2018-05-17 13:03] LABS: DIGOXIN LEVEL 0.4 NG/ML (0.5-2.0)
[2018-05-17] MEDS ORDERED: ONDANSETRON 4MG/2ML VIAL (J2405) IV (14:00)
[2018-05-17 14:22] LABS: IMMEDIATE SPIN CROSSMATCH 1 2
[2018-05-17] MEDS: DIGOXIN 0.125 MG TAB PO (16:00)
[2018-05-17] MEDS: D5W/0.9% SODIUM CHLORIDE 1,000 ML IV (20:28)
[2018-05-17] MEDS: PANTOPRAZOLE 40MG INJ (PROTONIX) (C9113) IV (20:29)
[2018-05-18 03:58] LABS: HEMATOCRIT 22.8 % (36.0-47.0); HEMOGLOBIN 7.7 g/dl (12.0-15.5)
[2018-05-18 04:19] LABS: ALBUMIN 2.8 GM/DL (3.2-5.2); ALBUMIN/GLOBULIN RATIO 1.27 (1.00-1.93); ALKALINE PHOSPHATASE 36 U/L (45-117); ALT/SGPT 23 U/L (12-78); ANION GAP 6 MEQ/L (8-16); AST/SGOT 17 U/L (7-37); BILIRUBIN,TOTAL 0.9 MG/DL (0.2-1.0); BLOOD UREA NITROGEN 17 MG/DL (7-18); CARBON DIOXIDE LEVEL 24 MEQ/L (21-32); CHLORIDE LEVEL 107 MEQ/L (98-107); CREATININE FOR GFR 0.76 MG/DL (0.55-1.30); GLOMERULAR FILTRATION RATE > 60.0 (>51); GLUCOSE, FASTING 106 MG/DL (70-100); MAGNESIUM LEVEL 1.8 MG/DL (1.8-2.4); POTASSIUM SERUM 3.9 MEQ/L (3.5-5.1); SODIUM LEVEL 137 MEQ/L (136-145)
[2018-05-18 05:10] LABS: IMMEDIATE SPIN CROSSMATCH 1 1
[2018-05-18 08:35] LABS: HEMATOCRIT 26.6 % (36.0-47.0); HEMOGLOBIN 9.1 g/dl (12.0-15.5); MEAN CORPUSCULAR HEMOGLOBIN 31.4 pg (27.0-33.0); MEAN CORPUSCULAR HGB CONC 34.2 g/dl (32.0-36.5); MEAN CORPUSCULAR VOLUME 91.7 fl (80.0-96.0); PLATELET COUNT, AUTOMATED 165 10^3/uL (150-450); WHITE BLOOD COUNT 4.6 10^3/uL (4.0-10.0)
[2018-05-18] MEDS: PANTOPRAZOLE 40MG INJ (PROTONIX) (C9113) IV ×2 (08:38→21:35)
[2018-05-18] MEDS: VITAMIN E 400 INTERNATIONAL UNITS CAP PO (08:38)
[2018-05-18] MEDS: D5W/0.9% SODIUM CHLORIDE 1,000 ML IV ×2 (08:38→10:42)
[2018-05-18] MEDS: MULTIVITAMINS/MINERALS THERAP 1 TAB PO (08:39)
[2018-05-18] MEDS: SPIRONOLACTONE 25 MG TAB PO (08:39)
[2018-05-18] MEDS: FUROSEMIDE 10MG PER 1/2 TABLET PO (08:39)
[2018-05-18] MEDS: METOPROLOL SUCC (TopROL XL) 50MG **XL** TAB PO (08:39)
[2018-05-18 09:31] LABS: IMMEDIATE SPIN CROSSMATCH 1 2
[2018-05-18] MEDS: MAG SULF 1GM/100ML (MAG RUN) 1 GM in APPROPRIATE DILUENT 1 EA IV (12:43)
[2018-05-18 13:14] LABS: HEMATOCRIT 28.7 % (36.0-47.0); HEMOGLOBIN 9.8 g/dl (12.0-15.5); MEAN CORPUSCULAR HEMOGLOBIN 30.7 pg (27.0-33.0); MEAN CORPUSCULAR HGB CONC 34.1 g/dl (32.0-36.5); PLATELET COUNT, AUTOMATED 166 10^3/uL (150-450); RED BLOOD COUNT 3.19 10^6/uL (4.00-5.40); RED CELL DISTRIBUTION WIDTH 18.3 % (11.5-14.5); WHITE BLOOD COUNT 5.4 10^3/uL (4.0-10.0)
[2018-05-18] MEDS: DIGOXIN 0.125 MG TAB PO (15:44)
[2018-05-18] MEDS: MOM 30ML SUSPENSION UDC PO (15:44)
[2018-05-18] MEDS: GOLYTELY SOLN 4000 ML BTL PO (17:14)
[2018-05-18 18:12] LABS: HEMATOCRIT 30.3 % (36.0-47.0); HEMOGLOBIN 10.4 g/dl (12.0-15.5)
[2018-05-19 05:43] LABS: HEMATOCRIT 29.6 % (36.0-47.0)
[2018-05-19] MEDS: GOLYTELY SOLN 4000 ML BTL PO (07:00)
[2018-05-19] MEDS: PANTOPRAZOLE 40MG INJ (PROTONIX) (C9113) IV (09:19)
[2018-05-19 09:20] LABS: ALBUMIN 3.1 GM/DL (3.2-5.2); ALBUMIN/GLOBULIN RATIO 1.55 (1.00-1.93); ALKALINE PHOSPHATASE 47 U/L (45-117); ALT/SGPT 34 U/L (12-78); ANION GAP 7 MEQ/L (8-16); AST/SGOT 21 U/L (7-37); BILIRUBIN,TOTAL 1.1 MG/DL (0.2-1.0); BLOOD UREA NITROGEN 14 MG/DL (7-18); CALCIUM LEVEL 8.3 MG/DL (8.5-10.1); CARBON DIOXIDE LEVEL 25 MEQ/L (21-32); CHLORIDE LEVEL 106 MEQ/L (98-107); CREATININE FOR GFR 0.88 MG/DL (0.55-1.30); GLOMERULAR FILTRATION RATE > 60.0 (>51); GLUCOSE, FASTING 95 MG/DL (70-100); POTASSIUM SERUM 3.9 MEQ/L (3.5-5.1); SODIUM LEVEL 138 MEQ/L (136-145); TOTAL PROTEIN 5.1 GM/DL (6.4-8.2)
[2018-05-19 09:25] LABS: HEMATOCRIT 27.3 % (36.0-47.0); HEMOGLOBIN 9.4 g/dl (12.0-15.5); MEAN CORPUSCULAR HEMOGLOBIN 30.8 pg (27.0-33.0); MEAN CORPUSCULAR HGB CONC 34.4 g/dl (32.0-36.5); MEAN CORPUSCULAR VOLUME 89.5 fl (80.0-96.0); PLATELET COUNT, AUTOMATED 159 10^3/uL (150-450); RED BLOOD COUNT 3.05 10^6/uL (4.00-5.40); RED CELL DISTRIBUTION WIDTH 18.4 % (11.5-14.5); WHITE BLOOD COUNT 5.2 10^3/uL (4.0-10.0)
[2018-05-19] MEDS: METOPROLOL SUCC *XL* 25MG TAB (TopROL *XL*) PO (10:26)
[2018-05-19] MEDS: FUROSEMIDE 20 MG TAB PO (12:52)
[2018-05-19] MEDS: VITAMIN E 400 INTERNATIONAL UNITS CAP PO (12:52)
[2018-05-19] MEDS: MULTIVITAMINS/MINERALS THERAP 1 TAB PO (12:52)
[2018-05-20] MEDS ORDERED: FUROSEMIDE 20 MG TAB PO (09:00)
== END 2018-05-19 15:00 | disposition left against medical advice (07) | DRG 253 ==
LOC: M ED 11:05 → M ED INP 13:54 → M PCU 19:15
PROC: 30233N1 Transfusion of Nonautologous Red Blood Cells into Peripheral Vein, Percutaneous Approach (ICD-10-PCS; principal; 2018-05-17)
DX: K92.2 Gastrointestinal hemorrhage, unspecified (principal); I47.2 Ventricular tachycardia; I67.1 Cerebral aneurysm, nonruptured; I50.42 Chronic combined systolic (congestive) and diastolic (congestive) heart failure; I42.9 Cardiomyopathy, unspecified; I48.91 Unspecified atrial fibrillation; D64.9 Anemia, unspecified; Z86.73 Personal history of transient ischemic attack (TIA), and cerebral infarction without residual deficits; F17.210 Nicotine dependence, cigarettes, uncomplicated; Z79.899 Other long term (current) drug therapy; F10.20 Alcohol dependence, uncomplicated; Z79.01 Long term (current) use of anticoagulants

== ENCOUNTER 2018-08-08 09:35 | Emergency (ER) | payer OTHER ==
[~2018-08-08] VITALS: Ht 170.2 cm; Wt 60.0 kg
[~2018-08-08 09:35] MED LIST changes: +CO Q100C PO; -CO Q1CAP PO; +KLOR10TA76 PO; +LISI2.5T76 PO; -LISI25TA PO; -METO-207 PO; +METO1TAB7 PO; -POTA10CA PO; +SPIR-10 PO; -SPIR25TA2 PO; +XARE20TA PO; +comment
[2018-08-08 10:52] LABS: HEMATOCRIT 26.9 % (36.0-47.0); HEMOGLOBIN 8.1 g/dl (12.0-15.5); MEAN CORPUSCULAR HEMOGLOBIN 27.6 pg (27.0-33.0); MEAN CORPUSCULAR HGB CONC 30.1 g/dl (32.0-36.5); MEAN CORPUSCULAR VOLUME 91.5 fl (80.0-96.0); PLATELET COUNT, AUTOMATED 559 10^3/uL (150-450); RED BLOOD COUNT 2.94 10^6/uL (4.00-5.40); WHITE BLOOD COUNT 15.6 10^3/uL (4.0-10.0)
[2018-08-08] MEDS ORDERED: NATU400T PO (11:00)
[2018-08-08] MEDS ORDERED: MULT1TAB18 PO (11:00)
[2018-08-08] MEDS ORDERED: AMIO400T PO (11:00)
[2018-08-08] MEDS ORDERED: LISI2.5T5 PO (11:00)
[2018-08-08] MEDS ORDERED: LASI40TA9 PO (11:00)
[2018-08-08] MEDS ORDERED: MAGN400C PO (11:00)
[2018-08-08] MEDS ORDERED: COUM2TAB22 PO (11:00)
[2018-08-08] MEDS ORDERED: PROP60TA14 PO (11:00)
[2018-08-08] MEDS ORDERED: ASPI81TA85 PO (11:00)
[2018-08-08 11:04] LABS: INR 2.21; PARTIAL THROMBOPLASTIN TIME 41.8 SECONDS (25.4-37.6)
[2018-08-08 11:30] LABS: ALBUMIN 2.6 GM/DL (3.2-5.2); ALT/SGPT 35 U/L (12-78); BILIRUBIN,DIRECT < 0.1 MG/DL (0.0-0.2); BILIRUBIN,TOTAL 0.5 MG/DL (0.2-1.0); BLOOD UREA NITROGEN 13 MG/DL (7-18); CALCIUM LEVEL 8.5 MG/DL (8.5-10.1); CARBON DIOXIDE LEVEL 24 MEQ/L (21-32); CHLORIDE LEVEL 100 MEQ/L (98-107); CREATININE FOR GFR 0.57 MG/DL (0.55-1.30); GLOMERULAR FILTRATION RATE > 60.0 (>51); GLUCOSE, FASTING 115 MG/DL (70-100); LDH LACTATE DEHYDROGENASE 601 U/L (84-246); MAGNESIUM LEVEL 2.2 MG/DL (1.8-2.4); SODIUM LEVEL 133 MEQ/L (136-145); TOTAL PROTEIN 6.6 GM/DL (6.4-8.2)
[2018-08-08 12:44] VITALS: BP_SYST 80
== END 2018-08-08 12:50 | disposition home or self-care (01) ==
LOC: M ED 09:35
DX: R68.83 Chills (without fever) (principal); Z95.811 Presence of heart assist device; I48.91 Unspecified atrial fibrillation; I50.9 Heart failure, unspecified; Z86.73 Personal history of transient ischemic attack (TIA), and cerebral infarction without residual deficits; Z72.0 Tobacco use; Z79.82 Long term (current) use of aspirin; Z79.01 Long term (current) use of anticoagulants; Z79.899 Other long term (current) drug therapy

== ENCOUNTER 2018-08-11 23:39 | Emergency (ER) | payer OTHER ==
[~2018-08-11 23:39] MED LIST changes: +AMIO400T PO; +ASPI81TA85 PO; +COUM2TAB22 PO; +LASI40TA9 PO; +LISI2.5T5 PO; +MAGN400C PO; +MULT1TAB18 PO; +PROP60TA14 PO
[2018-08-12] MEDS ORDERED: NS 1,000 ML IV ONE (00:15)
[2018-08-12] MEDS ORDERED: METOCLOPRAMIDE INJ 10MG/2ML VIAL (J2765) IV ONE (00:15)
[2018-08-12 00:25] LABS: BASO # 0.1 10^3/uL (0.0-0.2); BASO % 0.5 % (0.0-1.0); EOS # 0.2 10^3/uL (0.0-0.50); EOS % 1.6 % (0.0-3.0); HEMATOCRIT 18.6 % (36.0-47.0); LYMPH # 2.1 10^3/uL (1.5-4.5); LYMPH % 15.4 % (24.0-44.0); MEAN CORPUSCULAR HEMOGLOBIN 27.3 pg (27.0-33.0); MEAN CORPUSCULAR HGB CONC 30.6 g/dl (32.0-36.5); MONO # 1.2 10^3/uL (0.0-0.8); MONO % 8.7 % (0.0-5.0); NEUTROPHILS # 9.7 10^3/uL (1.8-7.7); NEUTROPHILS % 72.4 % (36.0-66.0); PLATELET COUNT, AUTOMATED 470 10^3/uL (150-450); RED BLOOD COUNT 2.09 10^6/uL (4.00-5.40); WHITE BLOOD COUNT 13.4 10^3/uL (4.0-10.0)
[2018-08-12 00:26] LABS: HEMOGLOBIN 5.7 g/dl (12.0-15.5)
[2018-08-12 00:34] LABS: INR 2.54; PROTHROMBIN TIME 27.9 SECONDS (12.1-14.4)
[2018-08-12 00:35] LABS: PARTIAL THROMBOPLASTIN TIME 60.4 SECONDS (25.4-37.6)
[2018-08-12 00:49] LABS: BLOOD UREA NITROGEN 34 MG/DL (7-18); CARBON DIOXIDE LEVEL 27 MEQ/L (21-32); CHLORIDE LEVEL 98 MEQ/L (98-107); CPK CREATINE PHOSPHOKINASE 30 U/L (26-192); GLOMERULAR FILTRATION RATE > 60.0 (>51); GLUCOSE, FASTING 100 MG/DL (70-100); POTASSIUM SERUM 4.7 MEQ/L (3.5-5.1); SODIUM LEVEL 134 MEQ/L (136-145)
[2018-08-12 00:50] LABS: MB/CK RELATIVE INDEX 8.67 (< OR =4); TROPONIN I 0.45 NG/ML (< 0.10)
--- NOTE | 2018-08-12 01:52 | REP ---
Clinical: Presyncopal episode. Comparison: 06/14/2018. Findings: Mediastinum and cardiac silhouette are stable. Pacemaker and ventricular pump noted. Very subtle bilateral linear fibroatelectatic changes are nonspecific and may represent atelectasis versus chronic change. No focal consolidation. No obvious effusion. No pneumothorax. Lateral left base is obscured by cardiac pump. Skeletal structures intact. Impression: Subtle bilateral linear fibroatelectatic changes are nonspecific and may represent chronic change. While no obvious consolidation or effusion is appreciated, the left base is obscured by cardiac ventricular pump device. Electronically Signed by Sonny Frausto MD 08/12/2018 01:43 A
[2018-08-12 06:09] VITALS: BP 84/67
--- NOTE | 2018-08-12 08:21 | ECGEPIP ---
Stationary ECG Study [facility] - ED Test Date: 2018-08-12 Pat Name: CAITIE MCGARRY Department: Room: - Gender: F [employer]: : 1965 Requested By: YASMIN Cee Order Number: [id number] Reading MD: Lj Bahena Measurements Intervals [place] Rate: 80 P: -24 MA: 200 QRS: -82 QRSD: 169 T: 13 QT: 497 QTc: 575 Interpretive Statements SINUS RHYTHM POSSIBLE LEFT ATRIAL ENLARGEMENT INTRAVENTRICULAR CONDUCTION DELAY UNACCEPTABLE TRACING QUALITY FOR INTERPRETATION Electronically Signed On 08-12-2018 8:21:08 EST by Lj Bahena
== END 2018-08-12 06:19 | disposition short-term general hospital (02) ==
LOC: M ED 23:39
DX: D64.9 Anemia, unspecified (principal); K92.2 Gastrointestinal hemorrhage, unspecified; I25.2 Old myocardial infarction; Z95.811 Presence of heart assist device; Z79.899 Other long term (current) drug therapy; Z79.82 Long term (current) use of aspirin; Z79.01 Long term (current) use of anticoagulants
CPT/HCPCS: 36430; 71045; 80048; 82550; 82553; 85025; 85610; 85730; 86850; 86900; 86901; 86920; 93005; 93041; 94760; 96374; 99285; J2765; P9016

== ENCOUNTER → 2020-05-15 | Outpatient (REF) | payer MEDICARE, OTHER, SELFPAY ==
[~2020-05-15] MED LIST changes: -AMIO400T PO; +AMIO400T7 PO; -ASPI81TA85 PO; +ASPI81TA86 PO; +DIGO0.123 PO; +LISI2.5T2 PO; -LISI2.5T5 PO; -LISI2.5T76 PO; +LISI2.5T8 PO
[2020-05-15 12:20] LABS: BASO # 0.1 10^3/uL (0.0-0.2); EOS # 0.4 10^3/uL (0.0-0.5); EOS % 5.9 % (0.0-3.0); HEMATOCRIT 40.6 % (36.0-47.0); HEMOGLOBIN 13.1 g/dl (12.0-15.5); LYMPH # 1.4 10^3/uL (1.5-5.0); MEAN CORPUSCULAR HEMOGLOBIN 31.2 pg (27.0-33.0); MEAN CORPUSCULAR HGB CONC 32.3 g/dl (32.0-36.5); MEAN CORPUSCULAR VOLUME 96.7 fl (80.0-96.0); MONO # 0.6 10^3/uL (0.0-0.8); MONO % 10.1 % (0.0-5.0); NEUTROPHILS # 3.8 10^3/uL (1.5-8.5); NEUTROPHILS % 60.8 % (36.0-66.0); PLATELET COUNT, AUTOMATED 170 10^3/uL (150-450); WHITE BLOOD COUNT 6.2 10^3/uL (4.0-10.0)
[2020-05-15 12:32] LABS: INR 1.1; PROTHROMBIN TIME 14.4 SECONDS (12.5-14.3)
[2020-05-15 12:53] LABS: ALBUMIN 3.6 GM/DL (3.2-5.2); ALT/SGPT 47 U/L (12-78); BILIRUBIN,TOTAL 0.5 MG/DL (0.2-1.0); BLOOD UREA NITROGEN 15 MG/DL (7-18); C REACTIVE PROTEIN QUANTITATIV 0.94 MG/DL (0.00-0.30); CALCIUM LEVEL 9.2 MG/DL (8.5-10.1); CARBON DIOXIDE LEVEL 28 MEQ/L (21-32); CHLORIDE LEVEL 105 MEQ/L (98-107); CREATININE FOR GFR 0.84 MG/DL (0.55-1.30); GLOMERULAR FILTRATION RATE > 60.0 (>51); GLUCOSE, FASTING 76 MG/DL (70-100); LDH LACTATE DEHYDROGENASE 256 U/L (84-246); NT-PRO BNP 1662 PG/ML (<125); POTASSIUM SERUM 4.1 MEQ/L (3.5-5.1); SODIUM LEVEL 140 MEQ/L (136-145)
[2020-05-15 13:34] LABS: ERYTHROCYTE SEDIMENTATION RATE 14 mm/hr (0-30)
== END ==
LOC: M LAB REF 11:40
PROVIDERS: ATTEND Nurse Practitioner Acute Care
DX: Z95.811 Presence of heart assist device (principal); T82 Complications of cardiac and vascular prosthetic devices, implants and grafts

== ENCOUNTER → 2020-05-22 | Outpatient (REF) | payer OTHER ==
[2020-05-22 12:48] LABS: BASO % 0.7 % (0.0-1.0); EOS # 0.3 10^3/uL (0.0-0.5); EOS % 5.6 % (0.0-3.0); HEMATOCRIT 44.3 % (36.0-47.0); LYMPH # 1.7 10^3/uL (1.5-5.0); LYMPH % 27.5 % (24.0-44.0); MEAN CORPUSCULAR HEMOGLOBIN 30.2 pg (27.0-33.0); MEAN CORPUSCULAR HGB CONC 31.6 g/dl (32.0-36.5); MEAN CORPUSCULAR VOLUME 95.7 fl (80.0-96.0); MONO # 0.4 10^3/uL (0.0-0.8); MONO % 7.1 % (0.0-5.0); NEUTROPHILS # 3.6 10^3/uL (1.5-8.5); NEUTROPHILS % 58.9 % (36.0-66.0); PLATELET COUNT, AUTOMATED 200 10^3/uL (150-450); RED BLOOD COUNT 4.63 10^6/uL (4.00-5.40); WHITE BLOOD COUNT 6.1 10^3/uL (4.0-10.0)
[2020-05-22 13:11] LABS: ERYTHROCYTE SEDIMENTATION RATE 13 mm/hr (0-30)
[2020-05-22 13:21] LABS: INR 1.25
[2020-05-22 13:23] LABS: ALBUMIN 3.9 GM/DL (3.2-5.2); ALT/SGPT 60 U/L (12-78); BILIRUBIN,TOTAL 0.6 MG/DL (0.2-1.0); BLOOD UREA NITROGEN 18 MG/DL (7-18); C REACTIVE PROTEIN QUANTITATIV 0.83 MG/DL (0.00-0.30); CALCIUM LEVEL 9.9 MG/DL (8.5-10.1); CARBON DIOXIDE LEVEL 28 MEQ/L (21-32); CHLORIDE LEVEL 105 MEQ/L (98-107); CREATININE FOR GFR 0.86 MG/DL (0.55-1.30); GLOMERULAR FILTRATION RATE > 60.0 (>51); GLUCOSE, FASTING 115 MG/DL (70-100); LDH LACTATE DEHYDROGENASE 248 U/L (84-246); MAGNESIUM LEVEL 1.8 MG/DL (1.8-2.4); NT-PRO BNP 1618 PG/ML (<125); POTASSIUM SERUM 4.1 MEQ/L (3.5-5.1); SODIUM LEVEL 137 MEQ/L (136-145); TOTAL PROTEIN 7.6 GM/DL (6.4-8.2)
== END ==
LOC: M LAB REF 11:19
PROVIDERS: ATTEND Internal Medicine Advanced Heart Failure and Transplant Cardiology
DX: Z95.811 Presence of heart assist device (principal); T82 Complications of cardiac and vascular prosthetic devices, implants and grafts

== ENCOUNTER → 2020-05-29 | Outpatient (REF) | payer MEDICARE, OTHER ==
[2020-05-29 11:04] LABS: BASO # 0.1 10^3/uL (0.0-0.2); BASO % 0.8 % (0.0-1.0); EOS # 0.3 10^3/uL (0.0-0.5); EOS % 4.6 % (0.0-3.0); HEMATOCRIT 41.8 % (36.0-47.0); HEMOGLOBIN 13.3 g/dl (12.0-15.5); LYMPH # 1.5 10^3/uL (1.5-5.0); LYMPH % 24.3 % (24.0-44.0); MEAN CORPUSCULAR HEMOGLOBIN 30.6 pg (27.0-33.0); MEAN CORPUSCULAR HGB CONC 31.8 g/dl (32.0-36.5); MEAN CORPUSCULAR VOLUME 96.1 fl (80.0-96.0); MONO # 0.6 10^3/uL (0.0-0.8); MONO % 9.9 % (0.0-5.0); NEUTROPHILS # 3.6 10^3/uL (1.5-8.5); NEUTROPHILS % 60.1 % (36.0-66.0); PLATELET COUNT, AUTOMATED 192 10^3/uL (150-450); RED BLOOD COUNT 4.35 10^6/uL (4.00-5.40); WHITE BLOOD COUNT 6.1 10^3/uL (4.0-10.0)
[2020-05-29 11:13] LABS: INR 1.17; PROTHROMBIN TIME 15.2 SECONDS (12.5-14.3)
[2020-05-29 11:23] LABS: ERYTHROCYTE SEDIMENTATION RATE 12 mm/hr (0-30)
[2020-05-29 11:54] LABS: ALBUMIN 3.6 GM/DL (3.2-5.2); ALT/SGPT 47 U/L (12-78); BILIRUBIN,TOTAL 0.4 MG/DL (0.2-1.0); BLOOD UREA NITROGEN 13 MG/DL (7-18); C REACTIVE PROTEIN QUANTITATIV 0.92 MG/DL (0.00-0.30); CALCIUM LEVEL 9.7 MG/DL (8.5-10.1); CARBON DIOXIDE LEVEL 29 MEQ/L (21-32); CHLORIDE LEVEL 108 MEQ/L (98-107); CREATININE FOR GFR 0.79 MG/DL (0.55-1.30); GLOMERULAR FILTRATION RATE > 60.0 (>51); GLUCOSE, FASTING 88 MG/DL (70-100); LDH LACTATE DEHYDROGENASE 212 U/L (84-246); MAGNESIUM LEVEL 2.1 MG/DL (1.8-2.4); NT-PRO BNP 1163 PG/ML (<125); POTASSIUM SERUM 4.4 MEQ/L (3.5-5.1); SODIUM LEVEL 140 MEQ/L (136-145); TOTAL PROTEIN 7.1 GM/DL (6.4-8.2)
== END ==
LOC: M LAB REF 10:20
PROVIDERS: ATTEND Nurse Practitioner Acute Care
DX: Z95.811 Presence of heart assist device (principal); T82 Complications of cardiac and vascular prosthetic devices, implants and grafts

== ENCOUNTER → 2020-06-05 | Outpatient (REF) | payer MEDICARE, OTHER ==
[2020-06-05 12:02] LABS: BASO # 0.1 10^3/uL (0.0-0.2); BASO % 0.8 % (0.0-1.0); EOS # 0.3 10^3/uL (0.0-0.5); EOS % 4.5 % (0.0-3.0); HEMOGLOBIN 13.5 g/dl (12.0-15.5); LYMPH # 1.2 10^3/uL (1.5-5.0); LYMPH % 20.5 % (24.0-44.0); MEAN CORPUSCULAR HEMOGLOBIN 30.8 pg (27.0-33.0); MEAN CORPUSCULAR HGB CONC 32.1 g/dl (32.0-36.5); MEAN CORPUSCULAR VOLUME 95.7 fl (80.0-96.0); MONO # 0.7 10^3/uL (0.0-0.8); MONO % 11.1 % (0.0-5.0); NEUTROPHILS # 3.7 10^3/uL (1.5-8.5); NEUTROPHILS % 62.9 % (36.0-66.0); PLATELET COUNT, AUTOMATED 216 10^3/uL (150-450); RED BLOOD COUNT 4.39 10^6/uL (4.00-5.40)
[2020-06-05 12:14] LABS: INR 1.41; PROTHROMBIN TIME 17.6 SECONDS (12.5-14.3)
[2020-06-05 12:21] LABS: ALBUMIN 3.9 GM/DL (3.2-5.2); ALT/SGPT 47 U/L (12-78); BILIRUBIN,TOTAL 0.5 MG/DL (0.2-1.0); BLOOD UREA NITROGEN 14 MG/DL (7-18); C REACTIVE PROTEIN QUANTITATIV 0.97 MG/DL (0.00-0.30); CALCIUM LEVEL 9.8 MG/DL (8.5-10.1); CARBON DIOXIDE LEVEL 29 MEQ/L (21-32); CHLORIDE LEVEL 105 MEQ/L (98-107); CREATININE FOR GFR 0.86 MG/DL (0.55-1.30); GLOMERULAR FILTRATION RATE > 60.0 (>51); GLUCOSE, FASTING 94 MG/DL (70-100); LDH LACTATE DEHYDROGENASE 211 U/L (84-246); MAGNESIUM LEVEL 1.9 MG/DL (1.8-2.4); NT-PRO BNP 1333 PG/ML (<125); POTASSIUM SERUM 4.2 MEQ/L (3.5-5.1); SODIUM LEVEL 138 MEQ/L (136-145); TOTAL PROTEIN 7.4 GM/DL (6.4-8.2)
[2020-06-05 12:44] LABS: ERYTHROCYTE SEDIMENTATION RATE 10 mm/hr (0-30)
== END ==
LOC: M LAB REF 10:21
PROVIDERS: ATTEND Nurse Practitioner Acute Care
DX: Z95.811 Presence of heart assist device (principal); T82 Complications of cardiac and vascular prosthetic devices, implants and grafts

== ENCOUNTER → 2020-06-19 | Outpatient (REF) | payer MEDICARE ==
[2020-06-19 11:58] LABS: BASO # 0.1 10^3/uL (0.0-0.2); BASO % 0.8 % (0.0-1.0); EOS # 0.4 10^3/uL (0.0-0.5); EOS % 5.5 % (0.0-3.0); HEMATOCRIT 42.4 % (36.0-47.0); HEMOGLOBIN 13.6 g/dl (12.0-15.5); LYMPH # 1.6 10^3/uL (1.5-5.0); LYMPH % 21.1 % (24.0-44.0); MEAN CORPUSCULAR HEMOGLOBIN 30.7 pg (27.0-33.0); MEAN CORPUSCULAR HGB CONC 32.1 g/dl (32.0-36.5); MEAN CORPUSCULAR VOLUME 95.7 fl (80.0-96.0); MONO # 0.8 10^3/uL (0.0-0.8); MONO % 10.2 % (0.0-5.0); NEUTROPHILS # 4.6 10^3/uL (1.5-8.5); NEUTROPHILS % 62.1 % (36.0-66.0); PLATELET COUNT, AUTOMATED 206 10^3/uL (150-450); RED BLOOD COUNT 4.43 10^6/uL (4.00-5.40); WHITE BLOOD COUNT 7.5 10^3/uL (4.0-10.0)
[2020-06-19 12:08] LABS: INR 1.46; PROTHROMBIN TIME 18.1 SECONDS (12.5-14.3)
[2020-06-19 12:30] LABS: ALBUMIN 3.5 GM/DL (3.2-5.2); ALT/SGPT 40 U/L (12-78); BILIRUBIN,TOTAL 0.4 MG/DL (0.2-1.0); BLOOD UREA NITROGEN 15 MG/DL (7-18); C REACTIVE PROTEIN QUANTITATIV 0.95 MG/DL (0.00-0.30); CALCIUM LEVEL 9.2 MG/DL (8.5-10.1); CARBON DIOXIDE LEVEL 27 MEQ/L (21-32); CHLORIDE LEVEL 106 MEQ/L (98-107); CREATININE FOR GFR 0.75 MG/DL (0.55-1.30); GLOMERULAR FILTRATION RATE > 60.0 (>51); GLUCOSE, FASTING 79 MG/DL (70-100); LDH LACTATE DEHYDROGENASE 203 U/L (84-246); POTASSIUM SERUM 4.5 MEQ/L (3.5-5.1); SODIUM LEVEL 140 MEQ/L (136-145); TOTAL PROTEIN 6.9 GM/DL (6.4-8.2)
== END ==
LOC: M LAB REF 10:59
PROVIDERS: ATTEND Nurse Practitioner Acute Care
DX: Z95.811 Presence of heart assist device (principal); Z79.01 Long term (current) use of anticoagulants; D59.4 Other nonautoimmune hemolytic anemias; B99.9 Unspecified infectious disease; Z79.899 Other long term (current) drug therapy

== ENCOUNTER → 2020-06-26 | Outpatient (REF) | payer MEDICARE ==
[2020-06-26 14:40] LABS: BASO % 0.4 % (0.0-1.0); EOS # 0.3 10^3/uL (0.0-0.5); EOS % 4.1 % (0.0-3.0); HEMATOCRIT 41.4 % (36.0-47.0); HEMOGLOBIN 13.9 g/dl (12.0-15.5); LYMPH # 1.5 10^3/uL (1.5-5.0); LYMPH % 18.5 % (24.0-44.0); MEAN CORPUSCULAR HEMOGLOBIN 32.3 pg (27.0-33.0); MEAN CORPUSCULAR HGB CONC 33.6 g/dl (32.0-36.5); MEAN CORPUSCULAR VOLUME 96.3 fl (80.0-96.0); MONO # 0.7 10^3/uL (0.0-0.8); NEUTROPHILS # 5.3 10^3/uL (1.5-8.5); NEUTROPHILS % 67.7 % (36.0-66.0); PLATELET COUNT, AUTOMATED 204 10^3/uL (150-450); WHITE BLOOD COUNT 7.9 10^3/uL (4.0-10.0)
[2020-06-26 14:50] LABS: INR 1.22; PROTHROMBIN TIME 15.7 SECONDS (12.5-14.3)
[2020-06-26 15:04] LABS: ALBUMIN 3.6 GM/DL (3.2-5.2); ALT/SGPT 40 U/L (12-78); BILIRUBIN,TOTAL 0.5 MG/DL (0.2-1.0); BLOOD UREA NITROGEN 14 MG/DL (7-18); C REACTIVE PROTEIN QUANTITATIV 1.44 MG/DL (0.00-0.30); CALCIUM LEVEL 9.1 MG/DL (8.5-10.1); CARBON DIOXIDE LEVEL 28 MEQ/L (21-32); CHLORIDE LEVEL 110 MEQ/L (98-107); CREATININE FOR GFR 0.87 MG/DL (0.55-1.30); GLOMERULAR FILTRATION RATE > 60.0 (>51); GLUCOSE, FASTING 146 MG/DL (70-100); LDH LACTATE DEHYDROGENASE 205 U/L (84-246); POTASSIUM SERUM 4.2 MEQ/L (3.5-5.1); SODIUM LEVEL 141 MEQ/L (136-145); TOTAL PROTEIN 6.7 GM/DL (6.4-8.2)
== END ==
LOC: M LAB REF 14:24
PROVIDERS: ATTEND Nurse Practitioner Acute Care
DX: Z95.811 Presence of heart assist device (principal); Z79.01 Long term (current) use of anticoagulants; D59.4 Other nonautoimmune hemolytic anemias; B99.9 Unspecified infectious disease; Z79.899 Other long term (current) drug therapy

== ENCOUNTER → 2020-07-03 | Outpatient (REF) | payer MEDICARE ==
[2020-07-03 11:08] LABS: BASO # 0.1 10^3/uL (0.0-0.2); BASO % 0.9 % (0.0-1.0); EOS # 0.3 10^3/uL (0.0-0.5); EOS % 4.5 % (0.0-3.0); HEMATOCRIT 44.1 % (36.0-47.0); HEMOGLOBIN 14.4 g/dl (12.0-15.5); LYMPH # 1.4 10^3/uL (1.5-5.0); LYMPH % 20.4 % (24.0-44.0); MEAN CORPUSCULAR HEMOGLOBIN 30.8 pg (27.0-33.0); MEAN CORPUSCULAR HGB CONC 32.7 g/dl (32.0-36.5); MEAN CORPUSCULAR VOLUME 94.4 fl (80.0-96.0); MONO # 0.7 10^3/uL (0.0-0.8); MONO % 9.6 % (0.0-5.0); NEUTROPHILS # 4.4 10^3/uL (1.5-8.5); NEUTROPHILS % 64.3 % (36.0-66.0); PLATELET COUNT, AUTOMATED 239 10^3/uL (150-450); RED BLOOD COUNT 4.67 10^6/uL (4.00-5.40); WHITE BLOOD COUNT 6.9 10^3/uL (4.0-10.0)
[2020-07-03 11:19] LABS: INR 1.32; PROTHROMBIN TIME 16.7 SECONDS (12.5-14.3)
[2020-07-03 11:37] LABS: ALBUMIN 3.8 GM/DL (3.2-5.2); ALT/SGPT 41 U/L (12-78); BILIRUBIN,TOTAL 0.6 MG/DL (0.2-1.0); BLOOD UREA NITROGEN 18 MG/DL (7-18); C REACTIVE PROTEIN QUANTITATIV 1.28 MG/DL (0.00-0.30); CALCIUM LEVEL 9.9 MG/DL (8.5-10.1); CARBON DIOXIDE LEVEL 30 MEQ/L (21-32); CHLORIDE LEVEL 103 MEQ/L (98-107); CREATININE FOR GFR 0.89 MG/DL (0.55-1.30); GLOMERULAR FILTRATION RATE > 60.0 (>51); GLUCOSE, FASTING 99 MG/DL (70-100); LDH LACTATE DEHYDROGENASE 235 U/L (84-246); POTASSIUM SERUM 4.2 MEQ/L (3.5-5.1); SODIUM LEVEL 136 MEQ/L (136-145); TOTAL PROTEIN 7.5 GM/DL (6.4-8.2)
== END ==
LOC: M LAB REF 10:43
PROVIDERS: ATTEND Nurse Practitioner Acute Care
DX: D59.4 Other nonautoimmune hemolytic anemias (principal); B99.9 Unspecified infectious disease; Z79.01 Long term (current) use of anticoagulants; Z79.899 Other long term (current) drug therapy; Z95.811 Presence of heart assist device

== ENCOUNTER → 2020-07-10 | Outpatient (REF) | payer MEDICARE ==
[2020-07-10 11:29] LABS: BASO # 0.1 10^3/uL (0.0-0.2); EOS # 0.3 10^3/uL (0.0-0.5); EOS % 4.1 % (0.0-3.0); HEMATOCRIT 41.5 % (36.0-47.0); HEMOGLOBIN 13.7 g/dl (12.0-15.5); LYMPH # 1.4 10^3/uL (1.5-5.0); LYMPH % 17.2 % (24.0-44.0); MEAN CORPUSCULAR HEMOGLOBIN 31.7 pg (27.0-33.0); MEAN CORPUSCULAR VOLUME 96.1 fl (80.0-96.0); MONO # 0.7 10^3/uL (0.0-0.8); MONO % 8.2 % (0.0-5.0); NEUTROPHILS # 5.8 10^3/uL (1.5-8.5); NEUTROPHILS % 69.1 % (36.0-66.0); PLATELET COUNT, AUTOMATED 189 10^3/uL (150-450); RED BLOOD COUNT 4.32 10^6/uL (4.00-5.40); WHITE BLOOD COUNT 8.4 10^3/uL (4.0-10.0)
[2020-07-10 11:36] LABS: INR 1.33; PROTHROMBIN TIME 16.8 SECONDS (12.5-14.3)
[2020-07-10 11:56] LABS: ALBUMIN 3.6 GM/DL (3.2-5.2); ALT/SGPT 34 U/L (12-78); BILIRUBIN,TOTAL 0.5 MG/DL (0.2-1.0); BLOOD UREA NITROGEN 16 MG/DL (7-18); C REACTIVE PROTEIN QUANTITATIV 0.96 MG/DL (0.00-0.30); CALCIUM LEVEL 9.7 MG/DL (8.5-10.1); CARBON DIOXIDE LEVEL 26 MEQ/L (21-32); CHLORIDE LEVEL 106 MEQ/L (98-107); CREATININE FOR GFR 0.72 MG/DL (0.55-1.30); GLOMERULAR FILTRATION RATE > 60.0 (>51); GLUCOSE, FASTING 80 MG/DL (70-100); LDH LACTATE DEHYDROGENASE 221 U/L (84-246); POTASSIUM SERUM 4.3 MEQ/L (3.5-5.1); SODIUM LEVEL 140 MEQ/L (136-145); TOTAL PROTEIN 7.1 GM/DL (6.4-8.2)
== END ==
LOC: M LAB REF 11:03
PROVIDERS: ATTEND Nurse Practitioner Acute Care
DX: Z95.811 Presence of heart assist device (principal); Z79.01 Long term (current) use of anticoagulants; D59.4 Other nonautoimmune hemolytic anemias; B99.9 Unspecified infectious disease; Z79.899 Other long term (current) drug therapy

== ENCOUNTER → 2020-07-17 | Outpatient (REF) | payer MEDICARE ==
[2020-07-17 11:58] LABS: BASO # 0.1 10^3/uL (0.0-0.2); EOS # 0.4 10^3/uL (0.0-0.5); EOS % 5.3 % (0.0-3.0); HEMATOCRIT 44.1 % (36.0-47.0); HEMOGLOBIN 14.2 g/dl (12.0-15.5); LYMPH # 1.5 10^3/uL (1.5-5.0); LYMPH % 20.7 % (24.0-44.0); MEAN CORPUSCULAR HEMOGLOBIN 31.3 pg (27.0-33.0); MEAN CORPUSCULAR HGB CONC 32.2 g/dl (32.0-36.5); MEAN CORPUSCULAR VOLUME 97.1 fl (80.0-96.0); MONO # 0.6 10^3/uL (0.0-0.8); MONO % 8.8 % (0.0-5.0); NEUTROPHILS # 4.7 10^3/uL (1.5-8.5); NEUTROPHILS % 63.9 % (36.0-66.0); PLATELET COUNT, AUTOMATED 208 10^3/uL (150-450); RED BLOOD COUNT 4.54 10^6/uL (4.00-5.40); WHITE BLOOD COUNT 7.3 10^3/uL (4.0-10.0)
[2020-07-17 12:13] LABS: INR 1.3; PROTHROMBIN TIME 16.5 SECONDS (12.5-14.3)
[2020-07-17 12:31] LABS: ALBUMIN 3.8 GM/DL (3.2-5.2); ALT/SGPT 33 U/L (12-78); BILIRUBIN,TOTAL 0.5 MG/DL (0.2-1.0); BLOOD UREA NITROGEN 16 MG/DL (7-18); C REACTIVE PROTEIN QUANTITATIV 0.83 MG/DL (0.00-0.30); CARBON DIOXIDE LEVEL 30 MEQ/L (21-32); CHLORIDE LEVEL 103 MEQ/L (98-107); GLOMERULAR FILTRATION RATE > 60.0 (>51); GLUCOSE, FASTING 85 MG/DL (70-100); LDH LACTATE DEHYDROGENASE 205 U/L (84-246); POTASSIUM SERUM 4.1 MEQ/L (3.5-5.1); SODIUM LEVEL 141 MEQ/L (136-145); TOTAL PROTEIN 6.9 GM/DL (6.4-8.2)
== END ==
LOC: M LAB REF 11:40
PROVIDERS: ATTEND Nurse Practitioner Acute Care
DX: D59.4 Other nonautoimmune hemolytic anemias (principal); B99.9 Unspecified infectious disease; Z95.811 Presence of heart assist device; Z79.01 Long term (current) use of anticoagulants; Z79.899 Other long term (current) drug therapy

== ENCOUNTER → 2020-07-24 | Outpatient (REF) | payer MEDICARE ==
[2020-07-24 12:00] LABS: BASO # 0.1 10^3/uL (0.0-0.2); BASO % 0.9 % (0.0-1.0); EOS # 0.4 10^3/uL (0.0-0.5); EOS % 4.5 % (0.0-3.0); HEMATOCRIT 43.8 % (36.0-47.0); HEMOGLOBIN 14.5 g/dl (12.0-15.5); LYMPH # 1.6 10^3/uL (1.5-5.0); LYMPH % 20.2 % (24.0-44.0); MEAN CORPUSCULAR HEMOGLOBIN 31.7 pg (27.0-33.0); MEAN CORPUSCULAR HGB CONC 33.1 g/dl (32.0-36.5); MEAN CORPUSCULAR VOLUME 95.8 fl (80.0-96.0); MONO # 0.6 10^3/uL (0.0-0.8); MONO % 7.6 % (0.0-5.0); NEUTROPHILS # 5.3 10^3/uL (1.5-8.5); NEUTROPHILS % 66.6 % (36.0-66.0); PLATELET COUNT, AUTOMATED 217 10^3/uL (150-450); RED BLOOD COUNT 4.57 10^6/uL (4.00-5.40)
[2020-07-24 12:24] LABS: ALBUMIN 3.7 GM/DL (3.2-5.2); ALT/SGPT 34 U/L (12-78); BILIRUBIN,TOTAL 0.5 MG/DL (0.2-1.0); BLOOD UREA NITROGEN 20 MG/DL (7-18); C REACTIVE PROTEIN QUANTITATIV 1.06 MG/DL (0.00-0.30); CALCIUM LEVEL 9.8 MG/DL (8.5-10.1); CARBON DIOXIDE LEVEL 30 MEQ/L (21-32); CHLORIDE LEVEL 104 MEQ/L (98-107); CREATININE FOR GFR 0.86 MG/DL (0.55-1.30); GLOMERULAR FILTRATION RATE > 60.0 (>51); GLUCOSE, FASTING 104 MG/DL (70-100); LDH LACTATE DEHYDROGENASE 204 U/L (84-246); POTASSIUM SERUM 4.3 MEQ/L (3.5-5.1); SODIUM LEVEL 139 MEQ/L (136-145); TOTAL PROTEIN 7.2 GM/DL (6.4-8.2)
[2020-07-24 12:36] LABS: INR 1.26; PROTHROMBIN TIME 16.1 SECONDS (12.5-14.3)
== END ==
LOC: M LAB REF 11:32
PROVIDERS: ATTEND Nurse Practitioner Acute Care
DX: B99.9 Unspecified infectious disease (principal); Z79.899 Other long term (current) drug therapy; Z95.811 Presence of heart assist device; Z79.01 Long term (current) use of anticoagulants; D59.4 Other nonautoimmune hemolytic anemias

== ENCOUNTER 2020-08-20 06:23 | Emergency (ER) | payer MEDICARE ==
[~2020-08-20] VITALS: Ht 175.3 cm; Wt 77.3 kg
[2020-08-20] MEDS ORDERED: METOCLOPRAMIDE INJ 10MG/2ML VIAL (J2765 PER 1) IV ONE (06:45)
[2020-08-20] MEDS ORDERED: PROP40TA62 (06:45)
[2020-08-20] MEDS ORDERED: PANTOPRAZOLE 40MG VIAL (C9113 PER 1) IV ONE (06:45)
[2020-08-20] MEDS ORDERED: LISI10TA22 (06:45)
[2020-08-20] MEDS ORDERED: WARF4TAB52 (06:45)
[2020-08-20] MEDS ORDERED: FURO40TA2 PO (06:45)
[2020-08-20 07:07] LABS: BASO # 0.1 10^3/uL (0.0-0.2); BASO % 0.4 % (0.0-1.0); EOS # 0.3 10^3/uL (0.0-0.5); EOS % 1.5 % (0.0-3.0); HEMATOCRIT 28.5 % (36.0-47.0); HEMOGLOBIN 9.4 g/dl (12.0-15.5); LYMPH # 2.4 10^3/uL (1.5-5.0); LYMPH % 12.7 % (24.0-44.0); MEAN CORPUSCULAR HEMOGLOBIN 31.6 pg (27.0-33.0); MONO # 1.2 10^3/uL (0.0-0.8); MONO % 6.3 % (2.0-8.0); NEUTROPHILS % 78.5 % (36.0-66.0); PLATELET COUNT, AUTOMATED 220 10^3/uL (150-450); RED BLOOD COUNT 2.97 10^6/uL (4.00-5.40)
[2020-08-20] MEDS ORDERED: NS 200 ML IV ONE (07:15)
[2020-08-20 07:16] LABS: INR 2.45; PROTHROMBIN TIME 27.1 SECONDS (12.5-14.3)
[2020-08-20 07:17] LABS: PARTIAL THROMBOPLASTIN TIME 35.9 SECONDS (24.2-38.5)
[2020-08-20] MEDS ORDERED: PIPERACILLIN/TAZOBACTAM SOD 4.5 GM in D5W MINI-BAG PLUS 50 ML IV ONE (07:20)
[2020-08-20 07:21] VITALS: BP_SYST 65
[2020-08-20 07:39] LABS: ALBUMIN 3.5 GM/DL (3.2-5.2); ALT/SGPT 24 U/L (12-78); BILIRUBIN,DIRECT 0.1 MG/DL (0.0-0.2); BILIRUBIN,TOTAL 0.4 MG/DL (0.2-1.0); BLOOD UREA NITROGEN 42 MG/DL (7-18); CALCIUM LEVEL 8.7 MG/DL (8.5-10.1); CARBON DIOXIDE LEVEL 26 MEQ/L (21-32); CHLORIDE LEVEL 108 MEQ/L (98-107); CK-MB VALUE MASS 2.8 NG/ML (<3.6); CPK CREATINE PHOSPHOKINASE 47 U/L (26-192); CREATININE FOR GFR 0.74 MG/DL (0.55-1.30); GLOMERULAR FILTRATION RATE > 60.0 (>51); GLUCOSE, FASTING 117 MG/DL (70-100); LIPASE 155 U/L (73-393); MAGNESIUM LEVEL 1.9 MG/DL (1.8-2.4); MB/CK RELATIVE INDEX 5.96 (< OR =4); NT-PRO BNP 419 PG/ML (<125); POTASSIUM SERUM 4.3 MEQ/L (3.5-5.1); SODIUM LEVEL 141 MEQ/L (136-145); TOTAL PROTEIN 6.4 GM/DL (6.4-8.2); TROPONIN I 0.44 NG/ML (< 0.10)
--- NOTE | 2020-08-20 08:39 | REP ---
INDICATION: CHEST PAIN COMPARISON: 08/11/2018 TECHNIQUE: Portable AP view of the chest FINDINGS: Pacemaker and ventricular assist device again noted in stable position. The mediastinum and cardiac silhouette are stable and within normal limits for portable technique. The lung garcia are clear without acute consolidation, effusion, or pneumothorax. Skeletal structures are intact. IMPRESSION: No acute cardiopulmonary process appreciated. <Electronically signed by Sonny Frausto > 08/20/20 [id number]
[2020-08-20] MEDS ORDERED: ONDANSETRON 4 MG ORAL DISINTEGRATING TAB PO ONE (10:00)
--- NOTE | 2020-08-20 19:24 | ECGEPIP ---
[facility] - ED Test Date: 2020-08-20 Pat Name: CAITIE MCGARRY Department: Room: - Gender: Female [employer]: ED : 1965 Requested By: ODESSA KATZ Order Number: [id number] Reading MD: Caemron Godoy Measurements Intervals [place] Rate: 115 P: IA: QRS: 233 QRSD: 134 T: 101 QT: 390 QTc: 539 Interpretive Statements sinus rhtyhm Wide QRS rhythm Right bundle branch block Possible Lateral infarct , age undetermined cw 08/12/18 rate increased similar morphology LVAD pt Electronically Signed on 08-20-2020 19:24:26 EST by Cameron Godoy
== END 2020-08-20 09:47 | disposition short-term general hospital (02) ==
LOC: M ED 06:23
DX: K92.2 Gastrointestinal hemorrhage, unspecified (principal); Z95.811 Presence of heart assist device; D64.9 Anemia, unspecified; R94.31 Abnormal electrocardiogram [ECG] [EKG]; F17.200 Nicotine dependence, unspecified, uncomplicated; Z79.01 Long term (current) use of anticoagulants; Z79.82 Long term (current) use of aspirin; Z79.899 Other long term (current) drug therapy
CPT/HCPCS: 36430; 71045; 80047; 80048; 80076; 82550; 82553; 83605; 83690; 83735; 83880; 84484; 85025; 85610; 85730; 86850; 86900; 86901; 86920; 87040; 87798; 93005; 93041; 94760; 96361; 96365; 96375; 99285; C9113; J2543; J2765; P9016

== ENCOUNTER 2021-01-23 12:11 | Emergency (ER) | payer MEDICARE ==
[~2021-01-23] VITALS: Ht 172.7 cm; Wt 77.7 kg
[~2021-01-23 12:11] MED LIST changes: +FURO40TA2 PO; -KLOR10TA76 PO; +LISI10TA22; -LISI2.5T2 PO; +LISI2.5T9 PO; +POTA-136 PO; +PROP40TA62; +WARF4TAB52
[2021-01-23] MEDS ORDERED: PANT40TA29 (12:32)
[2021-01-23] MEDS ORDERED: [UNRECOGNIZED DRUG - CODE] (12:32)
[2021-01-23] MEDS ORDERED: AMLO1TAB24 (12:32)
[2021-01-23 12:55] LABS: BASO % 0.4 % (0.0-1.0); EOS # 0.2 10^3/uL (0.0-0.5); EOS % 1.6 % (0.0-3.0); HEMATOCRIT 36.4 % (36.0-47.0); HEMOGLOBIN 11.8 g/dl (12.0-15.5); LYMPH % 19.9 % (24.0-44.0); MEAN CORPUSCULAR HEMOGLOBIN 30.3 pg (27.0-33.0); MEAN CORPUSCULAR HGB CONC 32.4 g/dl (32.0-36.5); MEAN CORPUSCULAR VOLUME 93.3 fl (80.0-96.0); MONO # 0.7 10^3/uL (0.0-0.8); MONO % 7.2 % (2.0-8.0); NEUTROPHILS % 70.6 % (36.0-66.0); PLATELET COUNT, AUTOMATED 215 10^3/uL (150-450); WHITE BLOOD COUNT 9.9 10^3/uL (4.0-10.0)
[2021-01-23 13:10] LABS: INR 1.76; PARTIAL THROMBOPLASTIN TIME 24.7 SECONDS (25.9-37.0); PROTHROMBIN TIME 20.9 SECONDS (12.7-14.5)
[2021-01-23] MEDS ORDERED: NS 1,000 ML IV ONE (13:50)
[2021-05-14] MEDS ORDERED: LISI5TAB11 (17:44)
== END 2021-01-23 14:46 | disposition short-term general hospital (02) ==
LOC: M ED 12:11
DX: K92.2 Gastrointestinal hemorrhage, unspecified (principal); I47.2 Ventricular tachycardia; F17.200 Nicotine dependence, unspecified, uncomplicated; Z79.01 Long term (current) use of anticoagulants; Z79.899 Other long term (current) drug therapy

== ENCOUNTER 2021-05-14 17:34 | Emergency (ER) | payer MEDICARE ==
[~2021-05-14] VITALS: Ht 170.2 cm; Wt 75.0 kg
[~2021-05-14 17:34] MED LIST changes: +AMLO1TAB24; +PANT40TA29; +[UNRECOGNIZED DRUG - CODE]
[2021-05-14] MEDS ORDERED: LISI-898 (17:44)
[2021-05-14] MEDS ORDERED: NS 500 ML IV ONE (18:10)
[2021-05-14] MEDS ORDERED: PANTOPRAZOLE 40MG VIAL (C9113 PER 1) IV ONE (18:20)
[2021-05-14 19:13] LABS: ALBUMIN 2.8 GM/DL (3.2-5.2); ALT/SGPT 27 U/L (12-78); BILIRUBIN,DIRECT 0.1 MG/DL (0.0-0.2); BILIRUBIN,TOTAL 0.6 MG/DL (0.2-1.0); BLOOD UREA NITROGEN 24 MG/DL (7-18); CALCIUM LEVEL 8.6 MG/DL (8.5-10.1); CARBON DIOXIDE LEVEL 18 MEQ/L (21-32); CHLORIDE LEVEL 112 MEQ/L (98-107); CREATININE FOR GFR 0.95 MG/DL (0.55-1.30); GLOMERULAR FILTRATION RATE > 60.0 (>51); GLUCOSE, FASTING 201 MG/DL (70-100); LIPASE 92 U/L (73-393); POTASSIUM SERUM 4.9 MEQ/L (3.5-5.1); SODIUM LEVEL 141 MEQ/L (136-145); TOTAL PROTEIN 5.6 GM/DL (6.4-8.2)
[2021-05-14 19:22] LABS: INR 1.21; PROTHROMBIN TIME 15.7 SECONDS (12.7-14.5)
[2021-05-14 19:23] LABS: PARTIAL THROMBOPLASTIN TIME 25.2 SECONDS (25.9-37.0)
[2021-05-14 19:29] VITALS: BP_SYST 64
[2021-05-14 19:40] LABS: RSV AMPLIFICATION NEGATIVE (NEGATIVE)
--- OUTSIDE RECORDS SUMMARY | 2021-05-14 19:41 | CCD ---
Author Author [facility] Organization [facility] Address Unknown Phone Unavailable Support Name Relationship Address Phone SRINIVASAN HOLLEY Next Of Kin [address] [place] [address] SONIA WHIPPLE Next Of Kin Unknown DISABLED Next Of Kin Unknown Unavailable UE Next Of Kin Unknown Unavailable Thang MCGARRY Next Of Kin [address] [place] [address] [facility] Next Of Kin [address] [place] [id number] ABC [place] [address] Unavailable SEAN MCGARRY Next Of Kin [address] [place] [id number] SEAN MCGARRY [address] [address] [place] [address] Unavailable Re-disclosure Warning The records that you are about to access may contain information from federally-assisted alcohol or drug abuse programs. If such information is present, then the following federally mandated warning applies: This information has been disclosed to you from records protected by federal confidentiality rules (42 CFR part 2). The federal rules prohibit you from making any further disclosure of this information unless further disclosure is expressly permitted by the written consent of the person to whom it pertains or as otherwise permitted by 42 CFR part 2. A general authorization for the release of medical or other information is NOT sufficient for this purpose. The Federal rules restrict any use of the information to criminally investigate or prosecute any alcohol or drug abuse patient.The records that you are about to access may contain highly sensitive health information, the redisclosure of which is protected by Article 27-F of the [facility] Public Health law. If you continue you may have access to information: Regarding HIV / AIDS; Provided by facilities licensed or operated by the [facility] Office of Mental Health; or Provided by the [facility] Office for People With Developmental Disabilities. If such information is present, then the following [facility] mandated warning applies: This information has been disclosed to you from confidential records which are protected by state law. State law prohibits you from making any further disclosure of this information without the specific written consent of the person to whom it pertains, or as otherwise permitted by law. Any unauthorized further disclosure in violation of state law may result in a fine or [place] [facility] sentence or both. A general authorization for the release of medical or other information is NOT sufficient authorization for further disc losure. Allergies and Adverse Reactions Type Description Substance Reaction Status Data Source(s ) No Known Drug Allergies No Known Drug Allergies No Known Drug Aller gies active [facility] ([facility] ) Family History Family Member Name Family Member Gender Family Member Status Date o f Status Description Data Source(s) Unknown Unknown Problem [facility] ([facility]) age 58 Unknown Male Problem [facility]ENT ([facility]) Unknown Female Problem MEDENT ([facility]) Encounters Encounter Providers Location Date Indications Data Source(s ) 05/01/2020 12:00:00 AM EST - 021 09:37:05 AM EST [facility] ([facility]) Medications Medication Brand Name Start Date Product Form Dose Route Admi nistrative Instructions Pharmacy Instructions Status Indications Reaction Description Data Source(s) Coumadin 5 MG Coumadin 07/17/2020 12:00:00 AM EST completed [facility] ([facility]) Spironolactone 25 MG Spironolactone 05/01/2020 12:00:00 AM EST completed [facility] ([facility]) Ascorbic Acid 500 MG Ascorbic Acid 05/01/2020 12:00:00 AM EST completed [facility] ([facility]) Ferrous Sulfate 325 (65 Fe) MG Ferrous Sulfate 05/01/2020 12:00:00 AM EST completed [facility] ([facility]) Piperacillin Sod-Tazobactam So 13.5 (12-1.5) GM Piperacillin Sod-Tazobactam So 05/01/2020 12:00:00 AM EST completed [facility] ([facility]) Lisinopril 10 MG Lisinopril 05/01/2020 12:00:00 AM EST completed [facility] ([facility] ) Multivitamin Men 50+ Multivitamin Men 50+ 05/01/2020 12:00:00 AM EST completed [facility] ([facility]) Coenzyme Q-10 100 MG Coenzyme Q-10 05/01/2020 12:00:00 AM EST completed [facility] ([facility]) Mometasone Furoate 0.1 % Mometasone Furoate 05/01/2020 12:00:00 AM EST completed [facility] ([facility]) Docusate Sodium 100 MG Docusate Sodium 05/01/2020 12:00:00 AM EST completed [facility] ([facility]) Melatonin 3 MG Melatonin 05/01/2020 12:00:00 AM EST completed [facility] ([facility]) Normal Saline Flush 0.9 % Normal Saline Flush 05/01/2020 12:00:00 A M EST 10.0 {ml} completed [facility] ([facility]) Amiodarone HCl 200 MG Amiodarone HCl 04/26/2020 12:00:00 AM EST completed [facility] ([facility]) Acetaminophen 8 Hour 650 MG Acetaminophen 8 Hour 04/26/2020 12:00:00 AM EST completed [facility] ( [facility]) Magnesium Oxide 400 MG Magnesium Oxide 04/26/2020 12:00:00 AM EST completed [facility] ([facility]) Propranolol HCl 40 MG Propranolol HCl 04/26/2020 12:00:00 AM EST completed [facility] ([facility]) Aspirin 81 81 MG Aspirin 81 04/26/2020 12:00:00 AM EST completed [facility] ([facility] ) Furosemide 40 MG Furosemide 04/26/2020 12:00:00 AM EST completed [facility] ([facility] ) Vitamin E 400 UNIT Vitamin E 04/26/2020 12:00:00 AM EST completed [facility] ([facility] ) Warfarin Sodium 1 MG Warfarin Sodium 04/26/2020 12:00:00 AM EST completed [facility] ([facility]) Insurance Providers Payer name Policy type / Coverage type Policy ID Covered republican ID Covered republican's relationship to avila Policy Avila Plan Information MEDICAID [id number] Katja [id number] [facility] MEDICAID [id number] Katja [id number] [employer] COMMUNITY PLAN MCDHMO [id number] SP [id number] SELF PAY ONLY [id number] SP [id number] UNHC COMMUNITY PLAN XIX [id number] 18 [id number] [employer]HC COMMUNITY PLAN XIX -I/P [id number] 18 [id number] [facility] O [id number] S [id number] [facility] Essential Plan [place] Medicaid [id number] Self 1 [id number] [facility] Essential Plan Sta Medicaid [id number] Self 1 [id number] [facility] MEDICAID PI PI [facility] Essential Plan Sta Medicaid [id number] Self 1 [id number] [employer] COMMUNITY PLAN MCDHMO [id number] SP [id number] [employer] COMMUNITY PLAN MCDHMO [id number] SP [id number] [facility] Essential Plan Sta Medicaid [id number] Self 1 [id number] [facility] Essential Plan Sta Medicaid [id number] Self 1 [id number] [facility] Plan-[employer] [id number] Self 1 [id number] MEDICAID M [id number] S [id number] MEDICAID [id number] S [id number] SELF-PAY [id number] S [id number] SELF PAY UNAVAILABLE SP UNAVAILA BLE MEDICARE BLUE PPO [id number] SP [id number] MEDICARE BLUE PPO [id number] SP [id number] Problems, Conditions, and Diagnoses Code Display Name Description Problem Type Effective Dates Data Source(s) B96.5 Pseudomonas (aeruginosa) (ma llei) (pseudomallei) as the cause of diseases classified elsewhere Pseudomonas (aeruginosa) (mallei) (pseud omallei) as the cause of diseases classified elsewhere Problem 04/24/2020 12:00:00 A M EST [facility] ([facility]) B96.1 Klebsiella pneumoniae [K. pn eumoniae] as the cause of diseases classified elsewhere Klebsiella pneumoniae [K. pneumoniae] as the cause of diseases classified elsewhere Problem 04/24/2020 12:00:00 AM EST [facility] ([facility]) A36.3 Cutaneous diphtheria Cutaneous diphtheria Problem 04/24/2020 12:00:00 AM EST [facility] ([facility] ) I25.5 Ischemic cardiomyopathy Ischemic cardiomyopathy Proble m 04/24/2020 12:00:00 AM EST [facility] ([facility] ) I13.0 Hypertensive heart and chron ic kidney disease with heart failure and stage 1 through stage 4 chronic kidney disease, or unspecified chronic kidney disease Hypertensive heart and chronic kidney disease with heart failure and stage 1 through stage 4 chronic kidney disease, or unspecified chronic kidney disease Problem 04/24/2020 12:00:00 AM EST [facility] ([facility]) I50.810 Right heart failure, unspecified Right heart ortega lure, unspecified Problem 04/24/2020 12:00:00 AM EST [facility] ([facility]) 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 Chronic combined systolic (congestive) a nd diastolic (congestive) heart failure Problem 04/24/2020 12:00:00 AM EST [facility] ([facility]) N18.1 Chronic kidney disease, stage 1 Chronic kidney disease , stage 1 Problem 04/24/2020 12:00:00 AM EST [facility] ([facility] ) I42.8 Other cardiomyopathies Other cardiomyopathies Problem 04/24/2020 12:00:00 AM EST [facility] ([facility] ) I48.91 Unspecified atrial fibrillation Unspecified atrial fib rillation Problem 04/24/2020 12:00:00 AM EST [facility] ([facility] ) I47.2 Ventricular tachycardia Ventricular tachycardia Proble m 04/24/2020 12:00:00 AM EST [facility] ([facility] ) F17.210 Nicotine dependence, cigarettes, uncompl icated Nicotine dependence, cigarettes, uncomplicated Problem 04/24/2020 12:00:00 AM EST NETSMAR T ([facility]) Z51.81 Encounter for therapeutic drug level mon itoring Encounter for therapeutic drug level monitoring Problem 04/24/2020 12:00:00 AM EST [facility] ([facility]) Z79.2 buttermaker helper (current) use of antibiotics L lindsey term (current) use of antibiotics Problem 04/24/2020 12:00:00 AM EST [facility] ([facility]) Z79.01 buttermaker helper (current) use of anticoagulant s buttermaker helper (current) use of anticoagulants Problem 04/24/2020 12:00:00 AM EST [facility] ([facility]) Z79.82 buttermaker helper (current) use of aspirin buttermaker helper (cu rrent) use of aspirin Problem 04/24/2020 12:00:00 AM EST [facility] ([facility]) Z86.74 Personal history of sudden cardiac arres t Personal history of sudden cardiac arrest Problem 04/24/2020 12:00:00 AM EST [facility] ([facility]) Z95.811 Presence of heart assist device Presence of heart assi st device Problem 04/24/2020 12:00:00 AM EST [facility] ([facility] ) Z86.73 Personal history of transien t ischemic attack (TIA), and cerebral infarction without residual deficits Personal history of transient ischemic attack (TIA), and cerebral infarction without residual deficits Problem 04/24/2020 12:00:00 AM EST [facility] ([facility] ) T82.7XXA Infection and inflammatory r eaction due to other cardiac and vascular devices, implants and grafts, initial encounter Infection and inflammatory reaction due to other cardiac and vascular devices, implants and grafts, initial encounter Problem 04/24/2020 12:00:00 AM EST [facility] ([facility]) A41.9 Sepsis, unspecified organism Sepsis, unspecified organ ism Problem 04/24/2020 12:00:00 AM EST [facility] ([facility] ) Surgeries/Procedures No Information Results ID Date Data Source [id number] 01/23/2021 07:47:00 PM EDT [facility] Name Value Range Interpretation Code Description Data Tara rce(s) Supporting Document(s) SARS-CoV-2 RNA Pnl Spec JOAQUÍN+probe NEG [facility] This lab was ordered by [id number] and repor bailey by [facility]. ID Date Data Source [id number] 08/20/2020 07:33:00 AM EST [facility] Name Value Range Interpretation Code Description Data Tara rce(s) Supporting Document(s) SARS-CoV-2 (COVID 19) NEGATIVE - SARS-CoV-2 (COVID19) [facility] This lab was ordered by [facility] a nd reported by [facility]. ID Date Data Source [id number] 08/20/2020 12:00:00 AM EST [facility] Name Value Range Interpretation Code Description Data Tara rce(s) Supporting Document(s) SARS coronavirus 2 RNA panel NEG N [facility] This lab was ordered by [id number] and repor bailey by [facility]. ID Date Data Source [id number] 04/24/2020 12:00:00 AM EST [facility] Name Value Range Interpretation Code Description Data Tara rce(s) Supporting Document(s) SARS coronavirus 2 RNA panel N [facility] This lab was ordered by [id number] and repor bailey by [facility]. Procedure Social History No Information Patient Treatment Plan of Care Planned Activity Planned Date Details Description Data Source (s) Coumadin 5 MG 07/17/2020 12:00:00 AM EST [facility] ([facility]) Docusate Sodium 100 MG 05/01/2020 12:00:00 AM EST [facility] ([facility]) Melatonin 3 MG 05/01/2020 12:00:00 AM EST [facility] ([facility]) Ferrous Sulfate 325 (65 Fe) MG 05/01/2020 12:00:00 AM EST [facility] ([facility]) Lisinopril 10 MG 05/01/2020 12:00:00 AM EST [facility] ([facility]) Spironolactone 25 MG 05/01/2020 12:00:00 AM EST [facility] ([facility]) Ascorbic Acid 500 MG 05/01/2020 12:00:00 AM EST [facility] ([facility]) Coenzyme Q-10 100 MG 05/01/2020 12:00:00 AM EST [facility] ([facility]) Mometasone Furoate 0.1 % 05/01/2020 12:00:00 AM EST [facility] ([facility]) Multivitamin Men 50+ 05/01/2020 12:00:00 AM EST [facility] ([facility]) Normal Saline Flush 0.9 % 05/01/2020 12:00:00 AM EST [facility] ([facility]) Piperacillin Sod-Tazobactam So 13.5 (12-1.5) GM 05/01/2020 12:00:00 AM EST [facility] ([facility]) Acetaminophen 8 Hour 650 MG 04/26/2020 12:00:00 AM EST [facility] ([facility]) Amiodarone HCl 200 MG 04/26/2020 12:00:00 AM EST [facility] ([facility]) Aspirin 81 81 MG 04/26/2020 12:00:00 AM EST [facility] ([facility]) Furosemide 40 MG 04/26/2020 12:00:00 AM EST [facility] ([facility]) Magnesium Oxide 400 MG 04/26/2020 12:00:00 AM EST [facility] ([facility]) Propranolol HCl 40 MG 04/26/2020 12:00:00 AM EST [facility] ([facility]) Vitamin E 400 UNIT 04/26/2020 12:00:00 AM EST [facility] ([facility]) Warfarin Sodium 1 MG 04/26/2020 12:00:00 AM EST [facility] ([facility])
[2021-05-14 19:44] LABS: BASO # 0.1 10^3/uL (0.0-0.2); BASO % 0.4 % (0.0-1.0); EOS # 0.1 10^3/uL (0.0-0.5); EOS % 0.4 % (0.0-3.0); HEMATOCRIT 27.6 % (36.0-47.0); LYMPH # 1.9 10^3/uL (1.5-5.0); LYMPH % 10.5 % (24.0-44.0); MEAN CORPUSCULAR HEMOGLOBIN 29.1 pg (27.0-33.0); MEAN CORPUSCULAR HGB CONC 32.6 g/dl (32.0-36.5); MEAN CORPUSCULAR VOLUME 89.3 fl (80.0-96.0); MONO # 0.9 10^3/uL (0.0-0.8); MONO % 5.1 % (2.0-8.0); NEUTROPHILS # 15.2 10^3/uL (1.5-8.5); NEUTROPHILS % 83.1 % (36.0-66.0); PLATELET COUNT, AUTOMATED 130 10^3/uL (150-450); RED BLOOD COUNT 3.09 10^6/uL (4.00-5.40); WHITE BLOOD COUNT 18.3 10^3/uL (4.0-10.0)
[2021-05-14 19:45] VITALS: BP_SYST 70
[2021-05-14 20:21] VITALS: BP_DIAS 76
[2021-05-14 20:35] VITALS: BP_SYST 78
== END 2021-05-14 20:39 | disposition short-term general hospital (02) ==
LOC: M ED 17:34
DX: K92.2 Gastrointestinal hemorrhage, unspecified (principal); D64.9 Anemia, unspecified; I95.9 Hypotension, unspecified; Z95.811 Presence of heart assist device; I25.10 Atherosclerotic heart disease of native coronary artery without angina pectoris; I50.9 Heart failure, unspecified; F17.200 Nicotine dependence, unspecified, uncomplicated; Z79.01 Long term (current) use of anticoagulants; Z79.899 Other long term (current) drug therapy
CPT/HCPCS: 36430; 80048; 80076; 83690; 85025; 85610; 85730; 86850; 86900; 86901; 86920; 87631; 93041; 96361; 96374; 99285; C9113; P9016

== ENCOUNTER → 2021-09-23 | Outpatient (REF) | payer MEDICARE ==
[~2021-09-23] MED LIST changes: +LISI5TAB11
[2021-09-23 13:16] LABS: BASO % 0.4 % (0.0-1.0); EOS # 0.1 10^3/uL (0.0-0.5); HEMATOCRIT 31.1 % (36.0-47.0); HEMOGLOBIN 9.4 g/dl (12.0-15.5); LYMPH # 1.3 10^3/uL (1.5-5.0); LYMPH % 11.8 % (24.0-44.0); MEAN CORPUSCULAR HEMOGLOBIN 26.9 pg (27.0-33.0); MEAN CORPUSCULAR HGB CONC 30.2 g/dl (32.0-36.5); MEAN CORPUSCULAR VOLUME 89.1 fl (80.0-96.0); MONO % 8.8 % (2.0-8.0); NEUTROPHILS # 8.8 10^3/uL (1.5-8.5); NEUTROPHILS % 76.8 % (36.0-66.0); PLATELET COUNT, AUTOMATED 409 10^3/uL (150-450); RED BLOOD COUNT 3.49 10^6/uL (4.00-5.40); WHITE BLOOD COUNT 11.4 10^3/uL (4.0-10.0)
[2021-09-23 13:50] LABS: ALT/SGPT 51 U/L (12-78); BILIRUBIN,TOTAL 0.3 MG/DL (0.2-1.0); BLOOD UREA NITROGEN 10 MG/DL (7-18); CALCIUM LEVEL 9.3 MG/DL (8.5-10.1); CARBON DIOXIDE LEVEL 28 MEQ/L (21-32); CHLORIDE LEVEL 103 MEQ/L (98-107); CREATININE FOR GFR 0.79 MG/DL (0.55-1.30); GLOMERULAR FILTRATION RATE > 60.0 (>51); GLUCOSE, FASTING 88 MG/DL (70-100); LDH LACTATE DEHYDROGENASE 260 U/L (84-246); MAGNESIUM LEVEL 2.3 MG/DL (1.8-2.4); NT-PRO BNP 4621 PG/ML (<125); POTASSIUM SERUM 4.4 MEQ/L (3.5-5.1); SODIUM LEVEL 138 MEQ/L (136-145); TOTAL PROTEIN 7.2 GM/DL (6.4-8.2)
== END ==
LOC: M SHH 12:38
PROVIDERS: ATTEND Nurse Practitioner Acute Care
DX: Z95.811 Presence of heart assist device (principal); I50.9 Heart failure, unspecified; D59.4 Other nonautoimmune hemolytic anemias; B99.9 Unspecified infectious disease; Z79.899 Other long term (current) drug therapy; T82.7XXA Infection and inflammatory reaction due to other cardiac and vascular devices, implants and grafts, initial encounter

== ENCOUNTER → 2021-09-30 | Outpatient (REF) | payer MEDICARE ==
[2021-09-30 13:38] LABS: BASO # 0.1 10^3/uL (0.0-0.2); BASO % 0.6 % (0.0-1.0); EOS # 0.1 10^3/uL (0.0-0.5); EOS % 1.3 % (0.0-3.0); HEMATOCRIT 27.8 % (36.0-47.0); HEMOGLOBIN 8.3 g/dl (12.0-15.5); LYMPH % 10.1 % (24.0-44.0); MEAN CORPUSCULAR HEMOGLOBIN 26.8 pg (27.0-33.0); MEAN CORPUSCULAR HGB CONC 29.9 g/dl (32.0-36.5); MEAN CORPUSCULAR VOLUME 89.7 fl (80.0-96.0); MONO # 0.8 10^3/uL (0.0-0.8); MONO % 8.4 % (2.0-8.0); NEUTROPHILS # 7.5 10^3/uL (1.5-8.5); NEUTROPHILS % 79.1 % (36.0-66.0); PLATELET COUNT, AUTOMATED 428 10^3/uL (150-450); WHITE BLOOD COUNT 9.5 10^3/uL (4.0-10.0)
[2021-09-30 14:02] LABS: BLOOD UREA NITROGEN 11 MG/DL (7-18); CALCIUM LEVEL 9.1 MG/DL (8.5-10.1); CARBON DIOXIDE LEVEL 29 MEQ/L (21-32); CHLORIDE LEVEL 101 MEQ/L (98-107); CREATININE FOR GFR 0.85 MG/DL (0.55-1.30); GLOMERULAR FILTRATION RATE > 60.0 (>51); GLUCOSE, FASTING 61 MG/DL (70-100); POTASSIUM SERUM 4.3 MEQ/L (3.5-5.1); SODIUM LEVEL 137 MEQ/L (136-145)
[2021-09-30 14:03] LABS: ALBUMIN 2.9 GM/DL (3.2-5.2); ALT/SGPT 51 U/L (12-78); BILIRUBIN,TOTAL 0.3 MG/DL (0.2-1.0); LDH LACTATE DEHYDROGENASE 300 U/L (84-246); MAGNESIUM LEVEL 2.1 MG/DL (1.8-2.4); NT-PRO BNP 4029 PG/ML (<125); TOTAL PROTEIN 7.2 GM/DL (6.4-8.2)
== END ==
LOC: M SHH 12:53
PROVIDERS: ATTEND Nurse Practitioner Acute Care
DX: Z95.811 Presence of heart assist device (principal); B99.9 Unspecified infectious disease; Z79.899 Other long term (current) drug therapy; Z95.1 Presence of aortocoronary bypass graft; D59.4 Other nonautoimmune hemolytic anemias; T82.7XXA Infection and inflammatory reaction due to other cardiac and vascular devices, implants and grafts, initial encounter; I50.9 Heart failure, unspecified

== ENCOUNTER → 2021-10-07 | Outpatient (REF) | payer MEDICARE ==
[2021-10-07 12:32] LABS: BASO # 0.1 10^3/uL (0.0-0.2); BASO % 0.7 % (0.0-1.0); EOS # 0.1 10^3/uL (0.0-0.5); EOS % 1.5 % (0.0-3.0); HEMATOCRIT 31.4 % (36.0-47.0); HEMOGLOBIN 9.3 g/dl (12.0-15.5); LYMPH # 1.1 10^3/uL (1.5-5.0); LYMPH % 12.9 % (24.0-44.0); MEAN CORPUSCULAR HGB CONC 29.6 g/dl (32.0-36.5); MEAN CORPUSCULAR VOLUME 91.3 fl (80.0-96.0); MONO # 0.8 10^3/uL (0.0-0.8); MONO % 9.4 % (2.0-8.0); NEUTROPHILS # 6.4 10^3/uL (1.5-8.5); NEUTROPHILS % 74.9 % (36.0-66.0); PLATELET COUNT, AUTOMATED 493 10^3/uL (150-450); RED BLOOD COUNT 3.44 10^6/uL (4.00-5.40); WHITE BLOOD COUNT 8.5 10^3/uL (4.0-10.0)
[2021-10-07 13:05] LABS: ALBUMIN 3.1 GM/DL (3.2-5.2); ALT/SGPT 35 U/L (12-78); BILIRUBIN,TOTAL 0.3 MG/DL (0.2-1.0); BLOOD UREA NITROGEN 13 MG/DL (7-18); C REACTIVE PROTEIN QUANTITATIV 7.42 MG/DL (0.00-0.30); CALCIUM LEVEL 9.5 MG/DL (8.5-10.1); CARBON DIOXIDE LEVEL 29 MEQ/L (21-32); CHLORIDE LEVEL 103 MEQ/L (98-107); CREATININE FOR GFR 0.85 MG/DL (0.55-1.30); GLOMERULAR FILTRATION RATE > 60.0 (>51); GLUCOSE, FASTING 90 MG/DL (70-100); LDH LACTATE DEHYDROGENASE 222 U/L (84-246); MAGNESIUM LEVEL 2.2 MG/DL (1.8-2.4); NT-PRO BNP 3486 PG/ML (<125); POTASSIUM SERUM 4.5 MEQ/L (3.5-5.1); SODIUM LEVEL 139 MEQ/L (136-145); TOTAL PROTEIN 7.3 GM/DL (6.4-8.2)
== END ==
LOC: M SHH 12:07
PROVIDERS: ATTEND Nurse Practitioner Acute Care
DX: D59.4 Other nonautoimmune hemolytic anemias (principal); Z95.811 Presence of heart assist device; B99.9 Unspecified infectious disease; Z79.899 Other long term (current) drug therapy; I50.9 Heart failure, unspecified; T82.7XXA Infection and inflammatory reaction due to other cardiac and vascular devices, implants and grafts, initial encounter

== ENCOUNTER → 2021-10-14 | Outpatient (REF) | payer MEDICARE ==
[2021-10-14 12:46] LABS: BASO % 0.4 % (0.0-1.0); EOS # 0.1 10^3/uL (0.0-0.5); EOS % 1.3 % (0.0-3.0); LYMPH % 10.6 % (24.0-44.0); MEAN CORPUSCULAR HEMOGLOBIN 27.4 pg (27.0-33.0); MEAN CORPUSCULAR HGB CONC 29.4 g/dl (32.0-36.5); MEAN CORPUSCULAR VOLUME 93.2 fl (80.0-96.0); MONO # 0.7 10^3/uL (0.0-0.8); NEUTROPHILS # 7.4 10^3/uL (1.5-8.5); NEUTROPHILS % 79.4 % (36.0-66.0); PLATELET COUNT, AUTOMATED 340 10^3/uL (150-450); RED BLOOD COUNT 3.65 10^6/uL (4.00-5.40); WHITE BLOOD COUNT 9.3 10^3/uL (4.0-10.0)
[2021-10-14 13:12] LABS: ALBUMIN 3.4 GM/DL (3.2-5.2); ALT/SGPT 13 U/L (12-78); BILIRUBIN,TOTAL 0.4 MG/DL (0.2-1.0); BLOOD UREA NITROGEN 13 MG/DL (7-18); C REACTIVE PROTEIN QUANTITATIV 7.37 MG/DL (0.00-0.30); CALCIUM LEVEL 10.1 MG/DL (8.5-10.1); CARBON DIOXIDE LEVEL 27 MEQ/L (21-32); CHLORIDE LEVEL 104 MEQ/L (98-107); CREATININE FOR GFR 0.75 MG/DL (0.55-1.30); GLOMERULAR FILTRATION RATE > 60.0 (>51); GLUCOSE, FASTING 114 MG/DL (70-100); LDH LACTATE DEHYDROGENASE 198 U/L (84-246); MAGNESIUM LEVEL 2.3 MG/DL (1.8-2.4); NT-PRO BNP 2985 PG/ML (<125); POTASSIUM SERUM 4.2 MEQ/L (3.5-5.1); SODIUM LEVEL 139 MEQ/L (136-145); TOTAL PROTEIN 7.4 GM/DL (6.4-8.2)
== END ==
LOC: M SHH 12:25
PROVIDERS: ATTEND Nurse Practitioner Acute Care
DX: Z79.899 Other long term (current) drug therapy (principal); T82.7XXA Infection and inflammatory reaction due to other cardiac and vascular devices, implants and grafts, initial encounter

== ENCOUNTER → 2021-10-21 | Outpatient (REF) | payer MEDICARE ==
[2021-10-21 13:51] LABS: BASO # 0.1 10^3/uL (0.0-0.2); BASO % 0.6 % (0.0-1.0); EOS # 0.1 10^3/uL (0.0-0.5); EOS % 0.9 % (0.0-3.0); HEMATOCRIT 34.1 % (36.0-47.0); HEMOGLOBIN 10.1 g/dl (12.0-15.5); LYMPH # 1.1 10^3/uL (1.5-5.0); LYMPH % 12.1 % (24.0-44.0); MEAN CORPUSCULAR HEMOGLOBIN 26.6 pg (27.0-33.0); MEAN CORPUSCULAR HGB CONC 29.6 g/dl (32.0-36.5); MEAN CORPUSCULAR VOLUME 89.7 fl (80.0-96.0); MONO # 0.9 10^3/uL (0.0-0.8); NEUTROPHILS # 6.7 10^3/uL (1.5-8.5); NEUTROPHILS % 76.1 % (36.0-66.0); PLATELET COUNT, AUTOMATED 294 10^3/uL (150-450); WHITE BLOOD COUNT 8.8 10^3/uL (4.0-10.0)
[2021-10-21 14:02] LABS: ALBUMIN 3.1 GM/DL (3.2-5.2); ALT/SGPT 12 U/L (12-78); BILIRUBIN,TOTAL 0.6 MG/DL (0.2-1.0); BLOOD UREA NITROGEN 16 MG/DL (7-18); CALCIUM LEVEL 9.1 MG/DL (8.5-10.1); CARBON DIOXIDE LEVEL 29 MEQ/L (21-32); CHLORIDE LEVEL 103 MEQ/L (98-107); GLOMERULAR FILTRATION RATE > 60.0 (>51); GLUCOSE, FASTING 106 MG/DL (70-100); LDH LACTATE DEHYDROGENASE 204 U/L (84-246); MAGNESIUM LEVEL 2.1 MG/DL (1.8-2.4); NT-PRO BNP 5445 PG/ML (<125); POTASSIUM SERUM 4.2 MEQ/L (3.5-5.1); SODIUM LEVEL 138 MEQ/L (136-145); TOTAL PROTEIN 7.1 GM/DL (6.4-8.2)
== END ==
LOC: M SHH 12:44
PROVIDERS: ATTEND Nurse Practitioner Acute Care
DX: I50.9 Heart failure, unspecified (principal); Z95.811 Presence of heart assist device; D59.4 Other nonautoimmune hemolytic anemias; B99.9 Unspecified infectious disease; Z79.899 Other long term (current) drug therapy; T82.7XXA Infection and inflammatory reaction due to other cardiac and vascular devices, implants and grafts, initial encounter

== ENCOUNTER → 2021-10-28 | Outpatient (REF) | payer MEDICARE ==
[2021-10-28 15:40] LABS: BASO % 0.5 % (0.0-1.0); EOS # 0.1 10^3/uL (0.0-0.5); EOS % 1.6 % (0.0-3.0); HEMATOCRIT 29.9 % (36.0-47.0); LYMPH # 1.1 10^3/uL (1.5-5.0); LYMPH % 13.3 % (24.0-44.0); MEAN CORPUSCULAR HEMOGLOBIN 26.9 pg (27.0-33.0); MEAN CORPUSCULAR HGB CONC 30.1 g/dl (32.0-36.5); MEAN CORPUSCULAR VOLUME 89.5 fl (80.0-96.0); MONO # 0.7 10^3/uL (0.0-0.8); MONO % 8.6 % (2.0-8.0); NEUTROPHILS # 6.3 10^3/uL (1.5-8.5); NEUTROPHILS % 75.8 % (36.0-66.0); PLATELET COUNT, AUTOMATED 323 10^3/uL (150-450); RED BLOOD COUNT 3.34 10^6/uL (4.00-5.40); WHITE BLOOD COUNT 8.3 10^3/uL (4.0-10.0)
[2021-10-28 16:09] LABS: ALT/SGPT 14 U/L (12-78); BILIRUBIN,TOTAL 0.2 MG/DL (0.2-1.0); BLOOD UREA NITROGEN 17 MG/DL (7-18); C REACTIVE PROTEIN QUANTITATIV 6.89 MG/DL (0.00-0.30); CARBON DIOXIDE LEVEL 29 MEQ/L (21-32); CHLORIDE LEVEL 106 MEQ/L (98-107); CREATININE FOR GFR 0.69 MG/DL (0.55-1.30); GLOMERULAR FILTRATION RATE > 60.0 (>51); GLUCOSE, FASTING 116 MG/DL (70-100); LDH LACTATE DEHYDROGENASE 175 U/L (84-246); MAGNESIUM LEVEL 2.3 MG/DL (1.8-2.4); NT-PRO BNP 3402 PG/ML (<125); POTASSIUM SERUM 4.1 MEQ/L (3.5-5.1); SODIUM LEVEL 137 MEQ/L (136-145); TOTAL PROTEIN 6.7 GM/DL (6.4-8.2)
== END ==
LOC: M LAB REF 15:21
PROVIDERS: ATTEND Nurse Practitioner Acute Care
DX: Z95.811 Presence of heart assist device (principal); B99.9 Unspecified infectious disease; Z79.899 Other long term (current) drug therapy; D59.4 Other nonautoimmune hemolytic anemias; T82.7XXA Infection and inflammatory reaction due to other cardiac and vascular devices, implants and grafts, initial encounter; I50.9 Heart failure, unspecified

== ENCOUNTER → 2021-10-29 | Outpatient (CLI) | payer MEDICARE | LOC: M RAD 09:37 | PROVIDERS: ATTEND Nurse Practitioner | DX: T82.7XXD Infection and inflammatory reaction due to other cardiac and vascular devices, implants and grafts, subsequent encounter (principal); I51.7 Cardiomegaly ==

== ENCOUNTER → 2021-11-04 | Outpatient (REF) | payer MEDICARE ==
[2021-11-04 13:51] LABS: BASO # 0.1 10^3/uL (0.0-0.2); BASO % 0.7 % (0.0-1.0); EOS # 0.1 10^3/uL (0.0-0.5); EOS % 1.3 % (0.0-3.0); HEMATOCRIT 26.7 % (36.0-47.0); LYMPH % 11.8 % (24.0-44.0); MEAN CORPUSCULAR HEMOGLOBIN 27.2 pg (27.0-33.0); MEAN CORPUSCULAR VOLUME 90.8 fl (80.0-96.0); MONO # 0.9 10^3/uL (0.0-0.8); MONO % 10.6 % (2.0-8.0); NEUTROPHILS # 6.3 10^3/uL (1.5-8.5); NEUTROPHILS % 75.2 % (36.0-66.0); PLATELET COUNT, AUTOMATED 373 10^3/uL (150-450); RED BLOOD COUNT 2.94 10^6/uL (4.00-5.40); WHITE BLOOD COUNT 8.4 10^3/uL (4.0-10.0)
[2021-11-04 14:21] LABS: ALBUMIN 2.9 GM/DL (3.2-5.2); ALT/SGPT 15 U/L (12-78); BILIRUBIN,TOTAL 0.2 MG/DL (0.2-1.0); BLOOD UREA NITROGEN 13 MG/DL (7-18); CALCIUM LEVEL 9.7 MG/DL (8.5-10.1); CARBON DIOXIDE LEVEL 26 MEQ/L (21-32); CHLORIDE LEVEL 107 MEQ/L (98-107); CREATININE FOR GFR 0.73 MG/DL (0.55-1.30); GLOMERULAR FILTRATION RATE > 60.0 (>51); GLUCOSE, FASTING 92 MG/DL (70-100); LDH LACTATE DEHYDROGENASE 186 U/L (84-246); MAGNESIUM LEVEL 2.3 MG/DL (1.8-2.4); NT-PRO BNP 6406 PG/ML (<125); POTASSIUM SERUM 4.4 MEQ/L (3.5-5.1); SODIUM LEVEL 140 MEQ/L (136-145); TOTAL PROTEIN 6.8 GM/DL (6.4-8.2)
== END ==
LOC: M SHH 13:01
PROVIDERS: ATTEND Nurse Practitioner Acute Care
DX: Z95.811 Presence of heart assist device (principal); D59.4 Other nonautoimmune hemolytic anemias; B99.9 Unspecified infectious disease; Z79.899 Other long term (current) drug therapy; T82.7XXA Infection and inflammatory reaction due to other cardiac and vascular devices, implants and grafts, initial encounter

== ENCOUNTER → 2021-11-11 | Outpatient (REF) | payer MEDICARE ==
[2021-11-11 13:50] LABS: BASO # 0.1 10^3/uL (0.0-0.2); BASO % 0.6 % (0.0-1.0); EOS # 0.2 10^3/uL (0.0-0.5); EOS % 2.2 % (0.0-3.0); HEMATOCRIT 29.8 % (36.0-47.0); HEMOGLOBIN 8.8 g/dl (12.0-15.5); LYMPH # 1.1 10^3/uL (1.5-5.0); LYMPH % 11.9 % (24.0-44.0); MEAN CORPUSCULAR HEMOGLOBIN 26.6 pg (27.0-33.0); MEAN CORPUSCULAR HGB CONC 29.5 g/dl (32.0-36.5); MONO % 10.7 % (2.0-8.0); NEUTROPHILS # 6.6 10^3/uL (1.5-8.5); NEUTROPHILS % 74.4 % (36.0-66.0); PLATELET COUNT, AUTOMATED 389 10^3/uL (150-450); RED BLOOD COUNT 3.31 10^6/uL (4.00-5.40); WHITE BLOOD COUNT 8.9 10^3/uL (4.0-10.0)
[2021-11-11 14:15] LABS: ALBUMIN 3.2 GM/DL (3.2-5.2); ALT/SGPT 12 U/L (12-78); BILIRUBIN,TOTAL 0.3 MG/DL (0.2-1.0); BLOOD UREA NITROGEN 18 MG/DL (7-18); C REACTIVE PROTEIN QUANTITATIV 7.98 MG/DL (0.00-0.30); CALCIUM LEVEL 9.6 MG/DL (8.5-10.1); CARBON DIOXIDE LEVEL 26 MEQ/L (21-32); CHLORIDE LEVEL 107 MEQ/L (98-107); CREATININE FOR GFR 0.79 MG/DL (0.55-1.30); GLOMERULAR FILTRATION RATE > 60.0 (>51); GLUCOSE, FASTING 113 MG/DL (70-100); LDH LACTATE DEHYDROGENASE 211 U/L (84-246); MAGNESIUM LEVEL 2.3 MG/DL (1.8-2.4); NT-PRO BNP 4058 PG/ML (<125); POTASSIUM SERUM 4.5 MEQ/L (3.5-5.1); SODIUM LEVEL 140 MEQ/L (136-145); TOTAL PROTEIN 7.3 GM/DL (6.4-8.2)
== END ==
LOC: M SHH 12:54
PROVIDERS: ATTEND Nurse Practitioner Acute Care
DX: D59.4 Other nonautoimmune hemolytic anemias (principal); Z95.811 Presence of heart assist device; I50.9 Heart failure, unspecified; B99.9 Unspecified infectious disease; Z79.899 Other long term (current) drug therapy; T82.7XXA Infection and inflammatory reaction due to other cardiac and vascular devices, implants and grafts, initial encounter

== ENCOUNTER → 2021-11-19 | Outpatient (REF) | payer MEDICARE ==
[2021-11-19 12:05] LABS: BASO # 0.1 10^3/uL (0.0-0.2); BASO % 0.6 % (0.0-1.0); EOS # 0.1 10^3/uL (0.0-0.5); EOS % 1.2 % (0.0-3.0); HEMOGLOBIN 8.8 g/dl (12.0-15.5); LYMPH # 0.8 10^3/uL (1.5-5.0); MEAN CORPUSCULAR HEMOGLOBIN 25.9 pg (27.0-33.0); MEAN CORPUSCULAR HGB CONC 29.3 g/dl (32.0-36.5); MEAN CORPUSCULAR VOLUME 88.2 fl (80.0-96.0); MONO # 0.9 10^3/uL (0.0-0.8); MONO % 11.2 % (2.0-8.0); NEUTROPHILS # 6.3 10^3/uL (1.5-8.5); NEUTROPHILS % 76.8 % (36.0-66.0); PLATELET COUNT, AUTOMATED 358 10^3/uL (150-450); WHITE BLOOD COUNT 8.2 10^3/uL (4.0-10.0)
[2021-11-19 12:35] LABS: ALBUMIN 3.3 GM/DL (3.2-5.2); ALT/SGPT 10 U/L (12-78); BILIRUBIN,TOTAL 0.3 MG/DL (0.2-1.0); BLOOD UREA NITROGEN 13 MG/DL (7-18); C REACTIVE PROTEIN QUANTITATIV 6.97 MG/DL (0.00-0.30); CALCIUM LEVEL 9.8 MG/DL (8.5-10.1); CARBON DIOXIDE LEVEL 28 MEQ/L (21-32); CHLORIDE LEVEL 106 MEQ/L (98-107); CREATININE FOR GFR 0.72 MG/DL (0.55-1.30); GLOMERULAR FILTRATION RATE > 60.0 (>51); GLUCOSE, FASTING 100 MG/DL (70-100); LDH LACTATE DEHYDROGENASE 255 U/L (84-246); MAGNESIUM LEVEL 2.2 MG/DL (1.8-2.4); NT-PRO BNP 6651 PG/ML (<125); POTASSIUM SERUM 4.1 MEQ/L (3.5-5.1); SODIUM LEVEL 140 MEQ/L (136-145); TOTAL PROTEIN 7.3 GM/DL (6.4-8.2)
== END ==
LOC: M SHH 11:51
PROVIDERS: ATTEND Nurse Practitioner Acute Care
DX: D59.4 Other nonautoimmune hemolytic anemias (principal); Z95.811 Presence of heart assist device; Z79.899 Other long term (current) drug therapy; T82.7XXA Infection and inflammatory reaction due to other cardiac and vascular devices, implants and grafts, initial encounter; B99.9 Unspecified infectious disease

== ENCOUNTER → 2021-12-16 | Outpatient (CLI) | payer MEDICARE | LOC: M WHC 10:54 | PROVIDERS: ATTEND Nurse Practitioner Family | DX: Z12.31 Encounter for screening mammogram for malignant neoplasm of breast (principal) ==

== ENCOUNTER 2022-02-20 08:50 | Emergency (ER) | payer MEDICARE ==
[~2022-02-20] VITALS: Ht 172.7 cm; Wt 69.9 kg
[2022-02-20] MEDS ORDERED: MERO1VIA3 (10:04)
[2022-02-20 10:57] VITALS: BP_SYST 88
== END 2022-02-20 11:32 | disposition home or self-care (01) ==
LOC: M ED 08:50
DX: T82.898A Other specified complication of vascular prosthetic devices, implants and grafts, initial encounter (principal); Z95.818 Presence of other cardiac implants and grafts; Y92.89 Other specified places as the place of occurrence of the external cause

== ENCOUNTER → 2022-02-28 | Outpatient (REF) | payer MEDICARE ==
[~2022-02-28] MED LIST changes: +MERO1VIA3
[2022-02-28 14:55] LABS: BASO # 0.1 10^3/uL (0.0-0.2); EOS # 0.2 10^3/uL (0.0-0.5); EOS % 2.3 % (0.0-3.0); HEMATOCRIT 37.8 % (36.0-47.0); HEMOGLOBIN 11.6 g/dl (12.0-15.5); LYMPH # 1.5 10^3/uL (1.5-5.0); LYMPH % 21.5 % (24.0-44.0); MEAN CORPUSCULAR HEMOGLOBIN 26.9 pg (27.0-33.0); MEAN CORPUSCULAR HGB CONC 30.7 g/dl (32.0-36.5); MEAN CORPUSCULAR VOLUME 87.7 fl (80.0-96.0); MONO # 0.7 10^3/uL (0.0-0.8); MONO % 9.2 % (2.0-8.0); NEUTROPHILS # 4.7 10^3/uL (1.5-8.5); NEUTROPHILS % 65.7 % (36.0-66.0); PLATELET COUNT, AUTOMATED 242 10^3/uL (150-450); RED BLOOD COUNT 4.31 10^6/uL (4.00-5.40); WHITE BLOOD COUNT 7.1 10^3/uL (4.0-10.0)
[2022-02-28 15:30] LABS: ALBUMIN 3.4 GM/DL (3.2-5.2); ALT/SGPT 45 U/L (12-78); BILIRUBIN,TOTAL 0.6 MG/DL (0.2-1.0); BLOOD UREA NITROGEN 15 MG/DL (7-18); C REACTIVE PROTEIN QUANTITATIV 1.63 MG/DL (0.00-0.30); CALCIUM LEVEL 9.7 MG/DL (8.5-10.1); CARBON DIOXIDE LEVEL 29 MEQ/L (21-32); CHLORIDE LEVEL 104 MEQ/L (98-107); CREATININE FOR GFR 0.57 MG/DL (0.55-1.30); GLOMERULAR FILTRATION RATE > 60.0 (>51); GLUCOSE, FASTING 60 MG/DL (70-100); LDH LACTATE DEHYDROGENASE 235 U/L (84-246); MAGNESIUM LEVEL 2.3 MG/DL (1.8-2.4); POTASSIUM SERUM 4.9 MEQ/L (3.5-5.1); SODIUM LEVEL 136 MEQ/L (136-145); TOTAL PROTEIN 7.2 GM/DL (6.4-8.2)
== END ==
LOC: M LAB REF 11:43
DX: T82.7XXA Infection and inflammatory reaction due to other cardiac and vascular devices, implants and grafts, initial encounter (principal)

== ENCOUNTER → 2022-03-04 | Outpatient (REF) | payer MEDICARE ==
[2022-03-04 18:14] LABS: BASO # 0.1 10^3/uL (0.0-0.2); BASO % 0.8 % (0.0-1.0); EOS # 0.3 10^3/uL (0.0-0.5); HEMATOCRIT 38.7 % (36.0-47.0); HEMOGLOBIN 11.9 g/dl (12.0-15.5); LYMPH # 1.8 10^3/uL (1.5-5.0); LYMPH % 21.2 % (24.0-44.0); MEAN CORPUSCULAR HEMOGLOBIN 26.7 pg (27.0-33.0); MEAN CORPUSCULAR HGB CONC 30.7 g/dl (32.0-36.5); MEAN CORPUSCULAR VOLUME 86.8 fl (80.0-96.0); MONO # 0.9 10^3/uL (0.0-0.8); MONO % 10.1 % (2.0-8.0); NEUTROPHILS # 5.5 10^3/uL (1.5-8.5); NEUTROPHILS % 64.7 % (36.0-66.0); PLATELET COUNT, AUTOMATED 239 10^3/uL (150-450); RED BLOOD COUNT 4.46 10^6/uL (4.00-5.40); WHITE BLOOD COUNT 8.6 10^3/uL (4.0-10.0)
[2022-03-04 19:46] LABS: ALBUMIN 3.4 GM/DL (3.2-5.2); ALT/SGPT 38 U/L (12-78); BILIRUBIN,TOTAL 0.4 MG/DL (0.2-1.0); BLOOD UREA NITROGEN 16 MG/DL (7-18); C REACTIVE PROTEIN QUANTITATIV 3.09 MG/DL (0.00-0.30); CALCIUM LEVEL 9.4 MG/DL (8.5-10.1); CARBON DIOXIDE LEVEL 26 MEQ/L (21-32); CHLORIDE LEVEL 104 MEQ/L (98-107); CREATININE FOR GFR 0.65 MG/DL (0.55-1.30); GLOMERULAR FILTRATION RATE > 60.0 (>51); GLUCOSE, FASTING 107 MG/DL (70-100); LDH LACTATE DEHYDROGENASE 239 U/L (84-246); POTASSIUM SERUM 4.5 MEQ/L (3.5-5.1); SODIUM LEVEL 137 MEQ/L (136-145); TOTAL PROTEIN 7.2 GM/DL (6.4-8.2)
== END ==
LOC: M LAB REF 17:45
DX: T82.7XXA Infection and inflammatory reaction due to other cardiac and vascular devices, implants and grafts, initial encounter (principal)

== ENCOUNTER → 2022-03-11 | Outpatient (REF) | payer MEDICARE ==
[2022-03-11 12:45] LABS: BASO # 0.1 10^3/uL (0.0-0.2); BASO % 0.7 % (0.0-1.0); EOS # 0.2 10^3/uL (0.0-0.5); EOS % 3.2 % (0.0-3.0); HEMATOCRIT 37.8 % (36.0-47.0); HEMOGLOBIN 11.7 g/dl (12.0-15.5); LYMPH # 1.9 10^3/uL (1.5-5.0); LYMPH % 25.9 % (24.0-44.0); MEAN CORPUSCULAR HEMOGLOBIN 27.5 pg (27.0-33.0); MEAN CORPUSCULAR VOLUME 88.9 fl (80.0-96.0); MONO # 0.7 10^3/uL (0.0-0.8); MONO % 10.3 % (2.0-8.0); NEUTROPHILS # 4.3 10^3/uL (1.5-8.5); NEUTROPHILS % 59.6 % (36.0-66.0); PLATELET COUNT, AUTOMATED 239 10^3/uL (150-450); RED BLOOD COUNT 4.25 10^6/uL (4.00-5.40); WHITE BLOOD COUNT 7.2 10^3/uL (4.0-10.0)
[2022-03-11 13:25] LABS: ALBUMIN 2.7 GM/DL (3.2-5.2); ALT/SGPT 29 U/L (12-78); BILIRUBIN,TOTAL 0.4 MG/DL (0.2-1.0); BLOOD UREA NITROGEN 11 MG/DL (7-18); C REACTIVE PROTEIN QUANTITATIV 2.03 MG/DL (0.00-0.30); CARBON DIOXIDE LEVEL 25 MEQ/L (21-32); CHLORIDE LEVEL 112 MEQ/L (98-107); CREATININE FOR GFR 0.41 MG/DL (0.55-1.30); GLOMERULAR FILTRATION RATE > 60.0 (>51); GLUCOSE, FASTING 76 MG/DL (70-100); LDH LACTATE DEHYDROGENASE 209 U/L (84-246); MAGNESIUM LEVEL 1.9 MG/DL (1.8-2.4); POTASSIUM SERUM 3.9 MEQ/L (3.5-5.1); SODIUM LEVEL 142 MEQ/L (136-145); TOTAL PROTEIN 5.9 GM/DL (6.4-8.2)
== END ==
LOC: M LAB REF 12:17
DX: T82.7XXA Infection and inflammatory reaction due to other cardiac and vascular devices, implants and grafts, initial encounter (principal)

== ENCOUNTER → 2022-03-18 | Outpatient (REF) | payer MEDICARE ==
[2022-03-18 13:52] LABS: BASO # 0.1 10^3/uL (0.0-0.2); BASO % 0.7 % (0.0-1.0); EOS # 0.2 10^3/uL (0.0-0.5); EOS % 3.3 % (0.0-3.0); HEMATOCRIT 37.4 % (36.0-47.0); HEMOGLOBIN 11.9 g/dl (12.0-15.5); LYMPH # 1.6 10^3/uL (1.5-5.0); LYMPH % 23.4 % (24.0-44.0); MEAN CORPUSCULAR HEMOGLOBIN 28.1 pg (27.0-33.0); MEAN CORPUSCULAR HGB CONC 31.8 g/dl (32.0-36.5); MEAN CORPUSCULAR VOLUME 88.2 fl (80.0-96.0); MONO # 0.7 10^3/uL (0.0-0.8); MONO % 10.5 % (2.0-8.0); NEUTROPHILS # 4.3 10^3/uL (1.5-8.5); NEUTROPHILS % 61.8 % (36.0-66.0); PLATELET COUNT, AUTOMATED 230 10^3/uL (150-450); RED BLOOD COUNT 4.24 10^6/uL (4.00-5.40)
[2022-03-18 14:24] LABS: ALBUMIN 3.2 GM/DL (3.2-5.2); ALT/SGPT 35 U/L (12-78); BILIRUBIN,TOTAL 0.5 MG/DL (0.2-1.0); BLOOD UREA NITROGEN 13 MG/DL (7-18); C REACTIVE PROTEIN QUANTITATIV 1.97 MG/DL (0.00-0.30); CALCIUM LEVEL 8.9 MG/DL (8.5-10.1); CARBON DIOXIDE LEVEL 25 MEQ/L (21-32); CHLORIDE LEVEL 105 MEQ/L (98-107); CREATININE FOR GFR 0.59 MG/DL (0.55-1.30); GLOMERULAR FILTRATION RATE > 60.0 (>51); GLUCOSE, FASTING 106 MG/DL (70-100); LDH LACTATE DEHYDROGENASE 223 U/L (84-246); MAGNESIUM LEVEL 2.1 MG/DL (1.8-2.4); POTASSIUM SERUM 4.2 MEQ/L (3.5-5.1); SODIUM LEVEL 137 MEQ/L (136-145); TOTAL PROTEIN 6.8 GM/DL (6.4-8.2)
== END ==
LOC: M LAB REF 13:07
DX: T82.7XXA Infection and inflammatory reaction due to other cardiac and vascular devices, implants and grafts, initial encounter (principal)

== ENCOUNTER → 2022-07-03 | Outpatient (CLI) | payer MEDICARE ==
[~2022-07-03] MED LIST changes: +AMLO1TAB25 PO; +ASPI81CH33 PO; +BACTDSTA PO; +CERTTAB8 PO; +DAPS10TA PO; +EPCL1TAB PO; +FAMO1TAB11 PO; +FLUC200T4 PO; +FLUD0.1T PO; +MYCO500T PO; +OYST250T6 PO; +PRED5TA PO; +TACR1CAP3 PO; +VALG450T10 PO; +VANC125C3 PO
[2022-07-03 12:25] LABS: BASO % 0.1 % (0.0-1.0); HEMOGLOBIN 8.7 g/dl (12.0-15.5); LYMPH # 0.4 10^3/uL (1.5-5.0); LYMPH % 3.4 % (24.0-44.0); MEAN CORPUSCULAR HEMOGLOBIN 31.8 pg (27.0-33.0); MEAN CORPUSCULAR HGB CONC 31.1 g/dl (32.0-36.5); MEAN CORPUSCULAR VOLUME 102.2 fl (80.0-96.0); MONO # 0.2 10^3/uL (0.0-0.8); MONO % 1.4 % (2.0-8.0); NEUTROPHILS # 10.2 10^3/uL (1.5-8.5); NEUTROPHILS % 94.2 % (36.0-66.0); PLATELET COUNT, AUTOMATED 289 10^3/uL (150-450); RED BLOOD COUNT 2.74 10^6/uL (4.00-5.40); WHITE BLOOD COUNT 10.8 10^3/uL (4.0-10.0)
[2022-07-03 12:55] LABS: MAGNESIUM LEVEL 1.8 MG/DL (1.8-2.4)
[2022-07-03 13:16] LABS: ALBUMIN 3.1 G/DL (3.2-5.2); BILIRUBIN,TOTAL 0.3 MG/DL (0.3-1.2); CREATININE FOR GFR 2.05 MG/DL (0.55-1.30); GLOMERULAR FILTRATION RATE 26.5 (>51); POTASSIUM SERUM 6.2 MMOL/L (3.5-5.1); TOTAL PROTEIN 6.2 G/DL (5.7-8.2)
[2022-07-04 16:08] LABS: CMV QUANT DNA PCR (PLASMA) Negative (Negative); HEPATITIS C QUANTITATION 1380000 IU/mL (.)
== END ==
LOC: M LAB 11:15
PROVIDERS: ATTEND Internal Medicine Advanced Heart Failure and Transplant Cardiology
DX: I10 Essential (primary) hypertension (principal); D84.9 Immunodeficiency, unspecified; Z94.1 Heart transplant status; B19.20 Unspecified viral hepatitis C without hepatic coma

== ENCOUNTER → 2022-07-04 | Outpatient (REF) | payer MEDICARE ==
[2022-07-04 14:34] LABS: CALCIUM LEVEL 8.9 MG/DL (8.5-10.1); CREATININE FOR GFR 2.32 MG/DL (0.55-1.30); POTASSIUM SERUM 5.8 MMOL/L (3.5-5.1)
== END ==
LOC: M LAB REF 13:17
PROVIDERS: ATTEND Nurse Practitioner Acute Care
DX: I42.8 Other cardiomyopathies (principal)

== ENCOUNTER 2022-07-05 11:32 | Emergency (ER) | payer MEDICARE ==
[~2022-07-05] VITALS: Ht 172.7 cm; Wt 72.7 kg
[2022-07-05] VITALS (7 sets, daily range): BP systolic 108–132; BP diastolic 56–70
[~2022-07-05 11:32] MED LIST changes: -AMLO1TAB25 PO; -ASPI81CH33 PO; -BACTDSTA PO; -CERTTAB8 PO; -DAPS10TA PO; -EPCL1TAB PO; -FAMO1TAB11 PO; -FLUC200T4 PO; -FLUD0.1T PO; -MYCO500T PO; -OYST250T6 PO; -PRED5TA PO; -TACR1CAP3 PO; -VALG450T10 PO; -VANC125C3 PO
[2022-07-05 13:41] LABS: LYMPH # 0.3 10^3/uL (1.5-5.0); LYMPH % 3.6 % (24.0-44.0); MEAN CORPUSCULAR HEMOGLOBIN 31.8 pg (27.0-33.0); MEAN CORPUSCULAR HGB CONC 31.3 g/dl (32.0-36.5); MEAN CORPUSCULAR VOLUME 101.5 fl (80.0-96.0); MONO # 0.1 10^3/uL (0.0-0.8); MONO % 0.9 % (2.0-8.0); NEUTROPHILS # 7.2 10^3/uL (1.5-8.5); NEUTROPHILS % 94.3 % (36.0-66.0); PLATELET COUNT, AUTOMATED 280 10^3/uL (150-450); RED BLOOD COUNT 1.95 10^6/uL (4.00-5.40); WHITE BLOOD COUNT 7.6 10^3/uL (4.0-10.0)
[2022-07-05 13:43] LABS: HEMATOCRIT 19.8 % (36.0-47.0); HEMOGLOBIN 6.2 g/dl (12.0-15.5)
[2022-07-05] MEDS ORDERED: PANTOPRAZOLE 40MG VIAL IV ONE (13:55)
[2022-07-05 14:01] LABS: CALCIUM LEVEL 9.2 MG/DL (8.5-10.1); CREATININE FOR GFR 2.7 MG/DL (0.55-1.30); GLOMERULAR FILTRATION RATE 19.3 (>51); POTASSIUM SERUM 5.9 MMOL/L (3.5-5.1)
[2022-07-05 14:03] LABS: ALBUMIN 2.9 G/DL (3.2-5.2); ALKALINE PHOSPHATASE 80 U/L (46-116); ALT/SGPT 46 U/L (7.0-40); AST/SGOT 17 U/L (<34); BILIRUBIN,DIRECT < 0.1 MG/DL (<0.4); BILIRUBIN,TOTAL 0.2 MG/DL (0.3-1.2); CK-MB VALUE MASS 10.4 NG/ML (<3.6); CPK CREATINE PHOSPHOKINASE 35 U/L (34-145); MB/CK RELATIVE INDEX 29.71 (< OR =4)
[2022-07-05 14:05] LABS: THYROID STIMULATING HORMONE 1.678 uIU/ML (0.55-4.78)
[2022-07-05] MEDS ORDERED: DEXTROSE 50% 50ML SYRINGE IV STA (14:12)
[2022-07-05] MEDS ORDERED: HumuLIN R (REGULAR) INSULIN (NovoLIN R) **100U/ML** PER UNIT IV ONE (14:15)
[2022-07-05] MEDS ORDERED: CALCIUM GLUCONATE 1,000 MG in D5W MINI-BAG PLUS 100 ML IV ONE (14:15)
[2022-07-05 14:36] LABS: INR 1.08; PROTHROMBIN TIME 14.2 SECONDS (12.5-14.5)
[2022-07-05 14:37] LABS: PARTIAL THROMBOPLASTIN TIME 20.5 SECONDS (24.8-34.2)
[2022-07-05] MEDS ORDERED: ONDANSETRON 4MG 2ML VIAL IV ONE ×2 (16:05→17:00)
[2022-07-05] MEDS ORDERED: OYST250T6 PO (16:22)
[2022-07-05] MEDS ORDERED: FAMO1TAB11 PO (16:22)
[2022-07-05] MEDS ORDERED: CERTTAB8 PO (16:26)
[2022-07-05] MEDS ORDERED: VANC125C3 PO (16:34)
[2022-07-05] MEDS ORDERED: BACTDSTA PO (16:34)
[2022-07-05] MEDS ORDERED: FLUC200T4 PO (16:34)
[2022-07-05] MEDS ORDERED: VALG450T10 PO (16:36)
[2022-07-05] MEDS ORDERED: AMLO1TAB25 PO (16:39)
[2022-07-05] MEDS ORDERED: ASPI81CH33 PO (16:39)
[2022-07-05] MEDS ORDERED: PRED5TA PO (16:47)
[2022-07-05] MEDS ORDERED: TACR1CAP3 PO (16:47)
[2022-07-05] MEDS ORDERED: DAPS10TA PO (16:47)
[2022-07-05] MEDS ORDERED: EPCL1TAB PO (16:47)
[2022-07-05] MEDS ORDERED: MYCO500T PO (16:47)
[2022-07-05] MEDS ORDERED: FLUD0.1T PO (16:47)
[2022-07-05] MEDS ORDERED: PROMETHAZINE 25MG/ML 1ML VIAL IV ONE (19:45)
== END 2022-07-05 20:04 | disposition short-term general hospital (02) ==
LOC: M ED 11:32
DX: K92.2 Gastrointestinal hemorrhage, unspecified (principal); E87.5 Hyperkalemia; D62 Acute posthemorrhagic anemia; N17.9 Acute kidney failure, unspecified; R00.0 Tachycardia, unspecified; F17.200 Nicotine dependence, unspecified, uncomplicated; Z86.79 Personal history of other diseases of the circulatory system; Z86.73 Personal history of transient ischemic attack (TIA), and cerebral infarction without residual deficits; Z88.2 Allergy status to sulfonamides; Z91.048 Other nonmedicinal substance allergy status
CPT/HCPCS: 36415; 36430; 71045; 80048; 80076; 82550; 82553; 83880; 84439; 84443; 84484; 85025; 85610; 85730; 86850; 86900; 86901; 86920; 87040; 87486; 87581; 87633; 87798; 93005; 93041; 94760; 96365; 96366; 96375; 96376; 99285; C9113; J1815; J2405; P9016

== ENCOUNTER → 2022-08-13 | Outpatient (CLI) | payer MEDICARE, MEDICAID ==
[~2022-08-13] MED LIST changes: +AMLO1TAB25 PO; +ASPI81CH33 PO; +BACTDSTA PO; +CERTTAB8 PO; +DAPS10TA PO; +EPCL1TAB PO; +FAMO1TAB11 PO; +FLUC200T4 PO; +FLUD0.1T PO; +MYCO500T PO; +OYST250T6 PO; +PRED5TA PO; +TACR1CAP3 PO; +VALG450T10 PO; +VANC125C3 PO
[2022-08-13 09:27] LABS: BASO % 0.2 % (0.0-1.0); HEMOGLOBIN 8.5 g/dl (12.0-15.5); LYMPH # 1.1 10^3/uL (1.5-5.0); LYMPH % 20.7 % (24.0-44.0); MEAN CORPUSCULAR HEMOGLOBIN 31.6 pg (27.0-33.0); MEAN CORPUSCULAR HGB CONC 31.5 g/dl (32.0-36.5); MEAN CORPUSCULAR VOLUME 100.4 fl (80.0-96.0); MONO # 0.4 10^3/uL (0.0-0.8); MONO % 8.1 % (2.0-8.0); NEUTROPHILS # 3.6 10^3/uL (1.5-8.5); NEUTROPHILS % 67.4 % (36.0-66.0); PLATELET COUNT, AUTOMATED 258 10^3/uL (150-450); RED BLOOD COUNT 2.69 10^6/uL (4.00-5.40); WHITE BLOOD COUNT 5.3 10^3/uL (4.0-10.0)
[2022-08-13 09:49] LABS: ALBUMIN 2.5 G/DL (3.2-5.2); BILIRUBIN,TOTAL 0.4 MG/DL (0.3-1.2); CALCIUM LEVEL 8.9 MG/DL (8.5-10.1); CREATININE FOR GFR 3.86 MG/DL (0.55-1.30); GLOMERULAR FILTRATION RATE 12.8 (>51); MAGNESIUM LEVEL 1.9 MG/DL (1.8-2.4); POTASSIUM SERUM 3.6 MMOL/L (3.5-5.1); TOTAL PROTEIN 5.6 G/DL (5.7-8.2)
== END ==
LOC: M LAB 08:37
DX: Z94.1 Heart transplant status (principal); T82.7XXA Infection and inflammatory reaction due to other cardiac and vascular devices, implants and grafts, initial encounter

== ENCOUNTER 2022-08-22 07:02 | Outpatient (CLI) | payer MEDICARE, MEDICAID ==
[~2022-08-22] VITALS: Ht 172.7 cm; Wt 70.9 kg
[2022-08-22] VITALS (8 sets, daily range): BP systolic 108–142; BP diastolic 62–83
== END 2022-08-22 14:00 | disposition home or self-care (01) ==
LOC: M INFU 07:02
PROVIDERS: ATTEND Internal Medicine Nephrology
DX: D64.9 Anemia, unspecified (principal); Z88.2 Allergy status to sulfonamides
CPT/HCPCS: 36430; 36592; 86850; 86900; 86901; 86920; P9016

== ENCOUNTER → 2022-08-27 | Outpatient (CLI) | payer MEDICARE, MEDICAID ==
[2022-08-27 10:02] LABS: HEMATOCRIT 29.2 % (36.0-47.0); HEMOGLOBIN 9.2 g/dl (12.0-15.5); MEAN CORPUSCULAR HGB CONC 31.5 g/dl (32.0-36.5); MEAN CORPUSCULAR VOLUME 98.3 fl (80.0-96.0); PLATELET COUNT, AUTOMATED 284 10^3/uL (150-450); RED BLOOD COUNT 2.97 10^6/uL (4.00-5.40); WHITE BLOOD COUNT 3.3 10^3/uL (4.0-10.0)
[2022-08-27 10:16] LABS: ANISOCYTOSIS 2+; ATYPICAL LYMPH 2 % (0-5); EOSINOPHILS 1 % (0-3); HYPOCHROMASIA 1+; LYMPHOCYTES 10 % (16-44); METAMYELOCYTES 2 % (0-0); MONOCYTES 11 % (0-5); NEUTROPHILS 74 % (28-66); POIKILOCYTOSIS 2+; POLYCHROMASIA 2+
[2022-08-27 10:17] LABS: SCHISTOCYTES 2+
[2022-08-27 10:18] LABS: PLATELET ESTIMATE NORMAL (NORMAL)
[2022-08-27 10:42] LABS: ALBUMIN 2.3 G/DL (3.2-5.2); BILIRUBIN,TOTAL 0.5 MG/DL (0.3-1.2); CALCIUM LEVEL 9.5 MG/DL (8.5-10.1); CREATININE FOR GFR 1.95 MG/DL (0.55-1.30); GLOMERULAR FILTRATION RATE 28.1 (>51); MAGNESIUM LEVEL 1.7 MG/DL (1.8-2.4); POTASSIUM SERUM 3.6 MMOL/L (3.5-5.1); TOTAL PROTEIN 5.7 G/DL (5.7-8.2)
[2022-08-30 02:09] LABS: CMV QUANT DNA PCR (PLASMA) Negative (Negative)
== END ==
LOC: M LAB 08:47
DX: Z94.1 Heart transplant status (principal)

== ENCOUNTER → 2022-08-29 | Outpatient (REF) | payer MEDICARE, MEDICAID | LOC: M LAB REF 11:17 | PROVIDERS: ATTEND Internal Medicine Advanced Heart Failure and Transplant Cardiology | DX: R19.7 Diarrhea, unspecified (principal) ==

== ENCOUNTER 2022-09-01 12:11 | Emergency (ER) | payer MEDICARE, MEDICAID ==
[~2022-09-01] VITALS: Ht 172.7 cm; Wt 69.1 kg
[2022-09-01] MEDS ORDERED: cefTRIAXone SOD 2 GM in D5W MINI-BAG PLUS 50 ML IV ONE (12:35)
[2022-09-01] MEDS ORDERED: NS 500 ML IV ONE (12:45)
[2022-09-01 12:55] LABS: HEMATOCRIT 26.8 % (36.0-47.0); HEMOGLOBIN 8.4 g/dl (12.0-15.5); MEAN CORPUSCULAR HEMOGLOBIN 30.4 pg (27.0-33.0); MEAN CORPUSCULAR HGB CONC 31.3 g/dl (32.0-36.5); MEAN CORPUSCULAR VOLUME 97.1 fl (80.0-96.0); PLATELET COUNT, AUTOMATED 452 10^3/uL (150-450); RED BLOOD COUNT 2.76 10^6/uL (4.00-5.40); WHITE BLOOD COUNT 4.4 10^3/uL (4.0-10.0)
[2022-09-01 12:55] LABS: VENOUS BASE EXCESS 2.3 (-2.0-2.0); VENOUS HCO3 26.4 MEQ/L (23.0-27.0); VENOUS O2 SATURATION 76.5 % (60.0-80.0); VENOUS PARTIAL PRESSURE CO2 38.8 mmHg (38.0-50.0); VENOUS PARTIAL PRESSURE O2 40.2 mmHg (30.0-50.0); VENOUS PH 7.451 UNITS (7.330-7.430); VENOUS STANDARD HCO3 26.2 MEQ/L; VENOUS TOTAL CO2 27.6 MEQ/L (24.0-28.0)
[2022-09-01 13:07] LABS: INR 0.89; PROTHROMBIN TIME 12.2 SECONDS (12.5-14.5)
[2022-09-01 13:24] LABS: CK-MB VALUE MASS 3.3 NG/ML (<3.6)
[2022-09-01 13:28] LABS: ALBUMIN 2.3 G/DL (3.2-5.2); BILIRUBIN,DIRECT 0.2 MG/DL (<0.4); BILIRUBIN,TOTAL 0.3 MG/DL (0.3-1.2); CALCIUM LEVEL 9.4 MG/DL (8.5-10.1); CREATININE FOR GFR 3.72 MG/DL (0.55-1.30); GLOMERULAR FILTRATION RATE 13.3 (>51); POTASSIUM SERUM 4.1 MMOL/L (3.5-5.1); THYROID STIMULATING HORMONE 2.447 uIU/ML (0.55-4.78); TOTAL PROTEIN 5.8 G/DL (5.7-8.2)
[2022-09-01 13:31] LABS: ATYPICAL LYMPH 4 % (0-5); LYMPHOCYTES 14 % (16-44); METAMYELOCYTES 1 % (0-0); MONOCYTES 8 % (0-5); MYELOCYTES 2 % (0-0); NEUTROPHILS 67 % (28-66)
[2022-09-01 13:32] LABS: HYPOCHROMASIA 1+; PLATELET ESTIMATE INCREASED (NORMAL); SCHISTOCYTES 2+
[2022-09-01 13:33] LABS: ANISOCYTOSIS 2+
[2022-09-01 14:32] LABS: CK-MB VALUE MASS 2.7 NG/ML (<3.6)
[2022-09-01 14:35] LABS: MB/CK RELATIVE INDEX 8.43 (< OR =4)
[2022-09-01] MEDS ORDERED: HYDROCORTISONE 100MG/2ML VIAL IV ONE (17:10)
[2022-09-01 19:00] VITALS: BP 89/54
[2022-09-08 09:07] LABS: MYCOPHENOLIC ACID SERUM 3.3 ug/mL (1.0-3.5)
== END 2022-09-01 20:10 | disposition short-term general hospital (02) ==
LOC: M ED 12:11 → EDBD 12:11 → M ED 20:10
DX: J96.01 Acute respiratory failure with hypoxia (principal); N18.9 Chronic kidney disease, unspecified; K21.9 Gastro-esophageal reflux disease without esophagitis; I49.49 Other premature depolarization; I25.2 Old myocardial infarction; F17.200 Nicotine dependence, unspecified, uncomplicated; Z86.79 Personal history of other diseases of the circulatory system; Z86.73 Personal history of transient ischemic attack (TIA), and cerebral infarction without residual deficits; Z94.1 Heart transplant status; Z88.2 Allergy status to sulfonamides; Z88.8 Allergy status to other drugs, medicaments and biological substances; Z79.52 Long term (current) use of systemic steroids; Z79.899 Other long term (current) drug therapy; Z79.811 Long term (current) use of aromatase inhibitors; Z79.1 Long term (current) use of non-steroidal anti-inflammatories (NSAID)
CPT/HCPCS: 71045; 71250; 80048; 80076; 80180; 80197; 82550; 82553; 82803; 83605; 83880; 84443; 84484; 85025; 85610; 87040; 87076; 87486; 87581; 87633; 87798; 93005; 93041; 93306; 94760; 96365; 96366; 96375; 99291; 99292; J0696; J1720

== ENCOUNTER → 2022-09-17 | Outpatient (CLI) | payer MEDICARE, MEDICAID ==
[2022-09-17 09:44] LABS: MAGNESIUM LEVEL 2.1 MG/DL (1.8-2.4)
[2022-09-19 15:30] LABS: ALBUMIN 2.3 G/DL (3.2-5.2); BILIRUBIN,TOTAL 0.4 MG/DL (0.3-1.2); CALCIUM LEVEL 10.7 MG/DL (8.5-10.1); CREATININE FOR GFR 3.54 MG/DL (0.55-1.30); GLOMERULAR FILTRATION RATE 14.1 (>51); TOTAL PROTEIN 5.7 G/DL (5.7-8.2)
== END ==
LOC: M LAB 08:51
DX: Z94.1 Heart transplant status (principal); N18.9 Chronic kidney disease, unspecified

== ENCOUNTER → 2022-09-18 | Outpatient (CLI) | payer MEDICARE, MEDICAID ==
[2022-09-18 10:03] LABS: HEMATOCRIT 24.1 % (36.0-47.0); HEMOGLOBIN 7.6 g/dl (12.0-15.5); MEAN CORPUSCULAR HEMOGLOBIN 29.1 pg (27.0-33.0); MEAN CORPUSCULAR HGB CONC 31.5 g/dl (32.0-36.5); MEAN CORPUSCULAR VOLUME 92.3 fl (80.0-96.0); PLATELET COUNT, AUTOMATED 417 10^3/uL (150-450); RED BLOOD COUNT 2.61 10^6/uL (4.00-5.40); WHITE BLOOD COUNT 7.6 10^3/uL (4.0-10.0)
[2022-09-18 10:25] LABS: ALBUMIN 2.4 G/DL (3.2-5.2); BILIRUBIN,TOTAL 0.4 MG/DL (0.3-1.2); CALCIUM LEVEL 11.2 MG/DL (8.5-10.1); CREATININE FOR GFR 4.81 MG/DL (0.55-1.30); GLOMERULAR FILTRATION RATE 9.9 (>51); MAGNESIUM LEVEL 2.4 MG/DL (1.8-2.4); POTASSIUM SERUM 4.4 MMOL/L (3.5-5.1)
[2022-09-18 10:53] LABS: ANISOCYTOSIS 2+; LYMPHOCYTES 11 % (16-44); MONOCYTES 5 % (0-5); MYELOCYTES 1 % (0-0); NEUTROPHILS 83 % (28-66); PLATELET ESTIMATE NORMAL (NORMAL); POIKILOCYTOSIS 1+
[2022-09-18 10:54] LABS: HYPERSEGMENTED POLYS 2+; POLYCHROMASIA 1+; SCHISTOCYTES 1+; SPHEROCYTES 1+; TARGET CELLS 1+
== END ==
LOC: M LAB 08:48
DX: Z94.1 Heart transplant status (principal); T82.7XXA Infection and inflammatory reaction due to other cardiac and vascular devices, implants and grafts, initial encounter; Z95.811 Presence of heart assist device; D48.9 Neoplasm of uncertain behavior, unspecified

== ENCOUNTER 2022-09-21 15:52 | Emergency (ER) | payer MEDICARE, MEDICAID ==
[~2022-09-21] VITALS: Ht 172.7 cm; Wt 64.1 kg
[2022-09-21 17:25] LABS: MEAN CORPUSCULAR HEMOGLOBIN 28.6 pg (27.0-33.0); MEAN CORPUSCULAR HGB CONC 30.2 g/dl (32.0-36.5); MEAN CORPUSCULAR VOLUME 94.5 fl (80.0-96.0); PLATELET COUNT, AUTOMATED 498 10^3/uL (150-450); RED BLOOD COUNT 2.17 10^6/uL (4.00-5.40); WHITE BLOOD COUNT 5.9 10^3/uL (4.0-10.0)
[2022-09-21 17:37] LABS: HEMATOCRIT 20.5 % (36.0-47.0); HEMOGLOBIN 6.2 g/dl (12.0-15.5)
[2022-09-21 18:26] VITALS: BP 114/70
[2022-09-21 18:41] VITALS: BP 115/72
[2022-09-21 20:34] VITALS: BP 106/60
[2022-09-21 20:52] VITALS: BP 107/61
[2022-09-21 23:00] VITALS: BP 105/59
== END 2022-09-21 23:30 | disposition short-term general hospital (02) ==
LOC: M ED 15:52
DX: D64.9 Anemia, unspecified (principal); Z94.1 Heart transplant status; N18.6 End stage renal disease; F17.200 Nicotine dependence, unspecified, uncomplicated; F10.10 Alcohol abuse, uncomplicated; Z79.82 Long term (current) use of aspirin; Z79.810 Long term (current) use of selective estrogen receptor modulators (SERMs); Z79.899 Other long term (current) drug therapy; Z79.01 Long term (current) use of anticoagulants
CPT/HCPCS: 36430; 85027; 86850; 86900; 86901; 86920; 93041; 94760; 99285; P9016

== ENCOUNTER → 2022-09-21 | Outpatient (REF) | payer MEDICARE, MEDICAID ==
[2022-09-21 13:07] LABS: MEAN CORPUSCULAR HEMOGLOBIN 28.2 pg (27.0-33.0); MEAN CORPUSCULAR VOLUME 93.9 fl (80.0-96.0); PLATELET COUNT, AUTOMATED 463 10^3/uL (150-450); RED BLOOD COUNT 2.13 10^6/uL (4.00-5.40); WHITE BLOOD COUNT 5.8 10^3/uL (4.0-10.0)
[2022-09-21 13:30] LABS: ALBUMIN 2.2 G/DL (3.2-5.2); BILIRUBIN,TOTAL 0.3 MG/DL (0.3-1.2); CALCIUM LEVEL 9.9 MG/DL (8.5-10.1); CREATININE FOR GFR 2.89 MG/DL (0.55-1.30); GLOMERULAR FILTRATION RATE 17.8 (>51); MAGNESIUM LEVEL 1.9 MG/DL (1.8-2.4); POTASSIUM SERUM 4.5 MMOL/L (3.5-5.1); TOTAL PROTEIN 5.7 G/DL (5.7-8.2)
[2022-09-21 13:49] LABS: LYMPHOCYTES 15 % (16-44); METAMYELOCYTES 1 % (0-0); MONOCYTES 4 % (0-5); NEUTROPHILS 80 % (28-66)
[2022-09-21 13:50] LABS: ANISOCYTOSIS 1+; PLATELET CLUMPS SMALL AMT; PLATELET ESTIMATE INCREASED (NORMAL); POLYCHROMASIA 1+
[2022-09-21 13:51] LABS: HYPOCHROMASIA 1+; POIKILOCYTOSIS 2+; SCHISTOCYTES 1+; SPHEROCYTES 1+
[2022-09-21 13:53] LABS: HYPERSEGMENTED POLYS 1+
== END ==
LOC: M LAB REF 12:54
DX: I42.9 Cardiomyopathy, unspecified (principal); T81.41XA Infection following a procedure, superficial incisional surgical site, initial encounter

== ENCOUNTER → 2022-10-07 | Outpatient (CLI) | payer MEDICARE, MEDICAID ==
[2022-10-07 09:37] LABS: HEMATOCRIT 24.7 % (36.0-47.0); HEMOGLOBIN 7.3 g/dl (12.0-15.5); MEAN CORPUSCULAR HGB CONC 29.6 g/dl (32.0-36.5); MEAN CORPUSCULAR VOLUME 94.6 fl (80.0-96.0); PLATELET COUNT, AUTOMATED 388 10^3/uL (150-450); RED BLOOD COUNT 2.61 10^6/uL (4.00-5.40)
[2022-10-07 09:58] LABS: ALBUMIN 2.6 G/DL (3.2-5.2); BILIRUBIN,TOTAL 0.3 MG/DL (0.3-1.2); CALCIUM LEVEL 10.3 MG/DL (8.5-10.1); CREATININE FOR GFR 5.64 MG/DL (0.55-1.30); GLOMERULAR FILTRATION RATE 8.2 (>51); MAGNESIUM LEVEL 2.1 MG/DL (1.8-2.4); POTASSIUM SERUM 3.8 MMOL/L (3.5-5.1); TOTAL PROTEIN 6.4 G/DL (5.7-8.2)
[2022-10-07 10:27] LABS: ATYPICAL LYMPH 1 % (0-5); BASOPHILS 1 % (0-1); LYMPHOCYTES 15 % (16-44); MONOCYTES 6 % (0-5); NEUTROPHILS 77 % (28-66)
[2022-10-07 10:28] LABS: ANISOCYTOSIS 2+
[2022-10-07 10:29] LABS: HYPOCHROMASIA 2+
[2022-10-07 10:30] LABS: PLATELET ESTIMATE NORMAL (NORMAL)
[2022-10-08 21:07] LABS: CMV QUANT DNA PCR (PLASMA) Negative (Negative)
== END ==
LOC: M LAB 08:47
DX: D84.9 Immunodeficiency, unspecified (principal)

== ENCOUNTER → 2022-10-10 | Outpatient (REF) | payer MEDICARE, MEDICAID ==
[2022-10-10 13:49] LABS: APPEARANCE, URINE TURBID (CLEAR); BACTERIA, URINE AUTO NEGATIVE (NEGATIVE); BILIRUBIN, URINE AUTO 1+ (NEGATIVE); BLOOD, URINE BLOOD 1+ (NEGATIVE); COLOR, URINE RED (YELLOW); GLUCOSE, URINE (UA) AUTO NEGATIVE (NEGATIVE); KETONE, URINE AUTO TRACE mg/dL (NEGATIVE); LEUKOCYTE ESTERASE, URINE AUTO 3+ (NEGATIVE); NITRITE, URINE AUTO NEGATIVE (NEGATIVE); PROTEIN, URINE AUTO 3+ mg/dL (NEGATIVE); RBC, URINE AUTO 154 /HPF (0-3); SPECIFIC GRAVITY URINE AUTO 1.022 (1.002-1.035); SQUAMOUS EPITHELIAL CELL UR AU 4 /HPF (0-6); WBC, URINE AUTO TNTC /HPF (0-3)
== END ==
LOC: M LAB REF 12:21
PROVIDERS: ATTEND Internal Medicine Advanced Heart Failure and Transplant Cardiology
DX: T82.7XXA Infection and inflammatory reaction due to other cardiac and vascular devices, implants and grafts, initial encounter (principal)

== ENCOUNTER → 2022-10-14 | Outpatient (CLI) | payer MEDICARE, MEDICAID ==
[2022-10-14 10:04] LABS: HEMATOCRIT 26.2 % (36.0-47.0); HEMOGLOBIN 7.7 g/dl (12.0-15.5); MEAN CORPUSCULAR HEMOGLOBIN 27.7 pg (27.0-33.0); MEAN CORPUSCULAR HGB CONC 29.4 g/dl (32.0-36.5); MEAN CORPUSCULAR VOLUME 94.2 fl (80.0-96.0); PLATELET COUNT, AUTOMATED 398 10^3/uL (150-450); RED BLOOD COUNT 2.78 10^6/uL (4.00-5.40); WHITE BLOOD COUNT 6.1 10^3/uL (4.0-10.0)
[2022-10-14 10:20] LABS: ALBUMIN 2.4 G/DL (3.2-5.2); BILIRUBIN,TOTAL 0.2 MG/DL (0.3-1.2); CALCIUM LEVEL 10.1 MG/DL (8.5-10.1); CREATININE FOR GFR 5.27 MG/DL (0.55-1.30); GLOMERULAR FILTRATION RATE 8.9 (>51); MAGNESIUM LEVEL 1.9 MG/DL (1.8-2.4); POTASSIUM SERUM 4.1 MMOL/L (3.5-5.1); TOTAL PROTEIN 6.1 G/DL (5.7-8.2)
[2022-10-14 10:36] LABS: ANISOCYTOSIS 2+; LYMPHOCYTES 14 % (16-44); MONOCYTES 11 % (0-5); NEUTROPHILS 75 % (28-66); PLATELET ESTIMATE NORMAL (NORMAL); POLYCHROMASIA 1+
[2022-10-14 10:37] LABS: HYPOCHROMASIA 2+
[2022-10-14 10:38] LABS: HYPERSEGMENTED POLYS 1+; SCHISTOCYTES 2+; SPHEROCYTES 1+
[2022-10-15 18:07] LABS: CMV QUANT DNA PCR (PLASMA) Negative (Negative)
== END ==
LOC: M LAB 08:51
PROVIDERS: ATTEND Nurse Practitioner
DX: D84.9 Immunodeficiency, unspecified (principal); Z95.811 Presence of heart assist device

== ENCOUNTER → 2022-10-27 | Outpatient (CLI) | payer MEDICARE, MEDICAID ==
[2022-10-27 09:45] LABS: HEMATOCRIT 26.8 % (36.0-47.0); MEAN CORPUSCULAR HEMOGLOBIN 28.4 pg (27.0-33.0); MEAN CORPUSCULAR HGB CONC 29.9 g/dl (32.0-36.5); PLATELET COUNT, AUTOMATED 370 10^3/uL (150-450); RED BLOOD COUNT 2.82 10^6/uL (4.00-5.40)
[2022-10-27 10:13] LABS: ALBUMIN 2.2 G/DL (3.2-5.2); BILIRUBIN,TOTAL 0.3 MG/DL (0.3-1.2); CALCIUM LEVEL 9.8 MG/DL (8.5-10.1); CREATININE FOR GFR 3.47 MG/DL (0.55-1.30); GLOMERULAR FILTRATION RATE 14.4 (>51); MAGNESIUM LEVEL 1.8 MG/DL (1.8-2.4); POTASSIUM SERUM 4.2 MMOL/L (3.5-5.1); TOTAL PROTEIN 5.9 G/DL (5.7-8.2)
[2022-10-27 10:35] LABS: ATYPICAL LYMPH 1 % (0-5); BASOPHILS 3 % (0-1); EOSINOPHILS 3 % (0-3); LYMPHOCYTES 11 % (16-44); METAMYELOCYTES 1 % (0-0); MONOCYTES 6 % (0-5); NEUTROPHILS 72 % (28-66)
[2022-10-27 10:36] LABS: ANISOCYTOSIS 2+; HYPOCHROMASIA 2+
[2022-10-27 10:37] LABS: HELMET CELLS 1+
[2022-10-27 10:38] LABS: HYPERSEGMENTED POLYS 1+; PLATELET ESTIMATE NORMAL (NORMAL)
[2022-10-28 18:07] LABS: CMV QUANT DNA PCR (PLASMA) Negative (Negative)
== END ==
LOC: M LAB 08:43
PROVIDERS: ATTEND Nurse Practitioner
DX: D84.9 Immunodeficiency, unspecified (principal)

== ENCOUNTER → 2022-10-27 | Outpatient (CLI) | payer MEDICARE, MEDICAID ==
[2022-10-28 18:07] LABS: HEPATITIS C QUANTITATION HCV Not Detected IU/mL (.)
== END ==
LOC: M LAB 08:46
PROVIDERS: ATTEND Nurse Practitioner Adult Health
DX: B18.2 Chronic viral hepatitis C (principal)

== ENCOUNTER → 2022-11-05 | Outpatient (CLI) | payer MEDICARE, MEDICAID ==
[2022-11-05 09:41] LABS: HEMATOCRIT 28.5 % (36.0-47.0); HEMOGLOBIN 8.3 g/dl (12.0-15.5); MEAN CORPUSCULAR HEMOGLOBIN 27.2 pg (27.0-33.0); MEAN CORPUSCULAR HGB CONC 29.1 g/dl (32.0-36.5); MEAN CORPUSCULAR VOLUME 93.4 fl (80.0-96.0); PLATELET COUNT, AUTOMATED 404 10^3/uL (150-450); RED BLOOD COUNT 3.05 10^6/uL (4.00-5.40); WHITE BLOOD COUNT 7.1 10^3/uL (4.0-10.0)
[2022-11-05 10:03] LABS: ALBUMIN 2.5 G/DL (3.2-5.2); BILIRUBIN,TOTAL 0.2 MG/DL (0.3-1.2); CALCIUM LEVEL 9.3 MG/DL (8.5-10.1); CREATININE FOR GFR 3.47 MG/DL (0.55-1.30); GLOMERULAR FILTRATION RATE 14.4 (>51); MAGNESIUM LEVEL 1.6 MG/DL (1.8-2.4); POTASSIUM SERUM 3.9 MMOL/L (3.5-5.1); TOTAL PROTEIN 6.3 G/DL (5.7-8.2)
[2022-11-05 13:36] LABS: ATYPICAL LYMPH 1 % (0-5); EOSINOPHILS 1 % (0-3); HYPOCHROMASIA 3+; LYMPHOCYTES 15 % (16-44); MONOCYTES 7 % (0-5); NEUTROPHILS 74 % (28-66)
[2022-11-05 13:37] LABS: PLATELET ESTIMATE NORMAL (NORMAL); POLYCHROMASIA 1+; SCHISTOCYTES 1+
[2022-11-05 13:38] LABS: HYPERSEGMENTED POLYS 1+
[2022-11-06 13:12] LABS: CMV QUANT DNA PCR (PLASMA) Negative (Negative)
== END ==
LOC: M LAB 08:48
PROVIDERS: ATTEND Nurse Practitioner
DX: D84.9 Immunodeficiency, unspecified (principal); Z95.811 Presence of heart assist device

== ENCOUNTER → 2022-11-05 | Outpatient (CLI) | payer MEDICARE, MEDICAID ==
[2022-11-05 09:41] LABS: AMORPHOUS SEDIMENT SMALL (NEGATIVE); APPEARANCE, URINE CLOUDY (CLEAR); BACTERIA, URINE AUTO 1+ (NEGATIVE); BILIRUBIN, URINE AUTO NEGATIVE (NEGATIVE); BLOOD, URINE BLOOD 1+ (NEGATIVE); COLOR, URINE AMBER (YELLOW); GLUCOSE, URINE (UA) AUTO NEGATIVE (NEGATIVE); KETONE, URINE AUTO TRACE mg/dL (NEGATIVE); LEUKOCYTE ESTERASE, URINE AUTO TRACE (NEGATIVE); NITRITE, URINE AUTO NEGATIVE (NEGATIVE); PROTEIN, URINE AUTO 2+ mg/dL (NEGATIVE); RBC, URINE AUTO 6 /HPF (0-3); SPECIFIC GRAVITY URINE AUTO 1.014 (1.002-1.035); SQUAMOUS EPITHELIAL CELL UR AU 2 /HPF (0-6); UROBILINOGEN, URINE AUTO 0.2 mg/dL (0.0-2.0); WBC, URINE AUTO 13 /HPF (0-3)
== END ==
LOC: M LAB 08:44
PROVIDERS: ATTEND Nurse Practitioner Acute Care
DX: D84.9 Immunodeficiency, unspecified (principal); Z94.1 Heart transplant status; Z79.899 Other long term (current) drug therapy

== ENCOUNTER → 2022-11-21 | Outpatient (CLI) | payer MEDICARE, MEDICAID ==
[2022-11-21 09:34] LABS: HEMATOCRIT 35.7 % (36.0-47.0); HEMOGLOBIN 10.5 g/dl (12.0-15.5); MEAN CORPUSCULAR HEMOGLOBIN 27.8 pg (27.0-33.0); MEAN CORPUSCULAR HGB CONC 29.4 g/dl (32.0-36.5); MEAN CORPUSCULAR VOLUME 94.4 fl (80.0-96.0); PLATELET COUNT, AUTOMATED 216 10^3/uL (150-450); RED BLOOD COUNT 3.78 10^6/uL (4.00-5.40); WHITE BLOOD COUNT 4.5 10^3/uL (4.0-10.0)
[2022-11-21 10:21] LABS: BASOPHILS 1 % (0-1); EOSINOPHILS 3 % (0-3); LYMPHOCYTES 17 % (16-44); MONOCYTES 11 % (0-5); NEUTROPHILS 68 % (28-66)
[2022-11-21 10:23] LABS: ANISOCYTOSIS 2+; HYPOCHROMASIA 2+
[2022-11-21 10:26] LABS: PLATELET ESTIMATE NORMAL (NORMAL)
[2022-11-21 10:37] LABS: ALBUMIN 3.3 G/DL (3.2-5.2); BILIRUBIN,TOTAL 0.3 MG/DL (0.3-1.2); CALCIUM LEVEL 9.9 MG/DL (8.5-10.1); CREATININE FOR GFR 1.42 MG/DL (0.55-1.30); GLOMERULAR FILTRATION RATE 40.3 (>51); MAGNESIUM LEVEL 1.7 MG/DL (1.8-2.4); TOTAL PROTEIN 6.5 G/DL (5.7-8.2)
[2022-11-22 13:08] LABS: CMV QUANT DNA PCR (PLASMA) Negative (Negative)
== END ==
LOC: M LAB 08:55
PROVIDERS: ATTEND Nurse Practitioner
DX: D84.9 Immunodeficiency, unspecified (principal); Z95.811 Presence of heart assist device

== ENCOUNTER → 2022-12-05 | Outpatient (CLI) | payer MEDICARE, MEDICAID ==
[2022-12-05 09:15] LABS: HEMATOCRIT 41.3 % (36.0-47.0); MEAN CORPUSCULAR HEMOGLOBIN 26.8 pg (27.0-33.0); MEAN CORPUSCULAR HGB CONC 29.1 g/dl (32.0-36.5); MEAN CORPUSCULAR VOLUME 92.2 fl (80.0-96.0); PLATELET COUNT, AUTOMATED 257 10^3/uL (150-450); RED BLOOD COUNT 4.48 10^6/uL (4.00-5.40); WHITE BLOOD COUNT 4.7 10^3/uL (4.0-10.0)
[2022-12-05 09:48] LABS: ALBUMIN 3.5 G/DL (3.2-5.2); BILIRUBIN,TOTAL 0.3 MG/DL (0.3-1.2); CALCIUM LEVEL 9.9 MG/DL (8.5-10.1); CREATININE FOR GFR 1.61 MG/DL (0.55-1.30); GLOMERULAR FILTRATION RATE 34.9 (>51); MAGNESIUM LEVEL 1.6 MG/DL (1.8-2.4); POTASSIUM SERUM 4.4 MMOL/L (3.5-5.1); TOTAL PROTEIN 6.4 G/DL (5.7-8.2)
[2022-12-05 10:15] LABS: ATYPICAL LYMPH 4 % (0-5); BASOPHILS 4 % (0-1); EOSINOPHILS 4 % (0-3); LYMPHOCYTES 16 % (16-44); MONOCYTES 13 % (0-5); NEUTROPHILS 59 % (28-66); PLATELET ESTIMATE NORMAL (NORMAL)
[2022-12-06 18:08] LABS: CMV QUANT DNA PCR (PLASMA) Negative (Negative)
== END ==
LOC: M LAB 08:33
PROVIDERS: ATTEND Nurse Practitioner
DX: D84.9 Immunodeficiency, unspecified (principal); Z95.811 Presence of heart assist device

== ENCOUNTER → 2022-12-12 | Outpatient (REF) | payer MEDICARE, MEDICAID ==
[2022-12-12 11:41] LABS: ALBUMIN 3.7 G/DL (3.2-5.2); CALCIUM LEVEL 9.5 MG/DL (8.5-10.1); CREATININE FOR GFR 1.45 MG/DL (0.55-1.30); GLOMERULAR FILTRATION RATE 39.3 (>51); PHOSPHORUS LEVEL 4.6 MG/DL (2.5-4.9); POTASSIUM SERUM 3.4 MMOL/L (3.5-5.1)
[2022-12-12 12:02] LABS: CREATININE 24 HOUR, URINE 720.55 MG/24HR (600-1800); CREATININE CLEARANCE, URINE 33.4 ML/MIN (75-115); CREATININE, SERUM 1.5 MG/DL (0.55-1.02); CREATININE, URINE 43.67 MG/DL
== END ==
LOC: M LAB REF 10:04
PROVIDERS: ATTEND Internal Medicine Nephrology
DX: N17.9 Acute kidney failure, unspecified (principal)

== ENCOUNTER → 2022-12-30 | Outpatient (CLI) | payer MEDICARE, MEDICAID ==
[2022-12-30 08:42] LABS: HEMATOCRIT 41.7 % (36.0-47.0); HEMOGLOBIN 12.3 g/dl (12.0-15.5); MEAN CORPUSCULAR HEMOGLOBIN 25.7 pg (27.0-33.0); MEAN CORPUSCULAR HGB CONC 29.5 g/dl (32.0-36.5); MEAN CORPUSCULAR VOLUME 87.2 fl (80.0-96.0); PLATELET COUNT, AUTOMATED 266 10^3/uL (150-450); RED BLOOD COUNT 4.78 10^6/uL (4.00-5.40); WHITE BLOOD COUNT 4.3 10^3/uL (4.0-10.0)
[2022-12-30 09:04] LABS: MAGNESIUM LEVEL 1.8 MG/DL (1.8-2.4)
[2022-12-30 10:16] LABS: ATYPICAL LYMPH 1 % (0-5); BASOPHILS 1 % (0-1); EOSINOPHILS 3 % (0-3); LYMPHOCYTES 22 % (16-44); METAMYELOCYTES 1 % (0-0); MONOCYTES 10 % (0-5); NEUTROPHILS 60 % (28-66)
[2022-12-30 10:17] LABS: ANISOCYTOSIS 1+; HYPOCHROMASIA 1+
[2022-12-30 10:20] LABS: PLATELET ESTIMATE NORMAL (NORMAL)
[2022-12-31 17:08] LABS: CMV QUANT DNA PCR (PLASMA) Negative (Negative)
[2023-01-01 14:11] LABS: ALBUMIN 3.9 G/DL (3.2-5.2); BILIRUBIN,TOTAL 0.4 MG/DL (0.3-1.2); CALCIUM LEVEL 11.5 MG/DL (8.5-10.1); CREATININE FOR GFR 1.38 MG/DL (0.55-1.30); GLOMERULAR FILTRATION RATE 41.7 (>51); POTASSIUM SERUM 4.6 MMOL/L (3.5-5.1); TOTAL PROTEIN 6.8 G/DL (5.7-8.2)
== END ==
LOC: M LAB 08:14
PROVIDERS: ATTEND Nurse Practitioner
DX: D84.9 Immunodeficiency, unspecified (principal)

== ENCOUNTER → 2023-01-14 | Outpatient (CLI) | payer MEDICARE, MEDICAID ==
[2023-01-14 09:24] LABS: BASO # 0.1 10^3/uL (0.0-0.2); BASO % 0.7 % (0.0-1.0); EOS # 0.1 10^3/uL (0.0-0.5); EOS % 1.7 % (0.0-3.0); HEMATOCRIT 43.6 % (36.0-47.0); LYMPH # 1.1 10^3/uL (1.5-5.0); LYMPH % 16.4 % (24.0-44.0); MEAN CORPUSCULAR HEMOGLOBIN 25.8 pg (27.0-33.0); MEAN CORPUSCULAR HGB CONC 29.8 g/dl (32.0-36.5); MEAN CORPUSCULAR VOLUME 86.7 fl (80.0-96.0); MONO # 0.9 10^3/uL (0.0-0.8); MONO % 12.7 % (2.0-8.0); NEUTROPHILS # 4.7 10^3/uL (1.5-8.5); NEUTROPHILS % 67.8 % (36.0-66.0); PLATELET COUNT, AUTOMATED 249 10^3/uL (150-450); RED BLOOD COUNT 5.03 10^6/uL (4.00-5.40); WHITE BLOOD COUNT 6.9 10^3/uL (4.0-10.0)
[2023-01-14 09:54] LABS: ALBUMIN 3.9 G/DL (3.2-5.2); BILIRUBIN,TOTAL 0.3 MG/DL (0.3-1.2); CALCIUM LEVEL 10.4 MG/DL (8.5-10.1); CREATININE FOR GFR 2.02 MG/DL (0.55-1.30); GLOMERULAR FILTRATION RATE 26.8 (>51); MAGNESIUM LEVEL 1.6 MG/DL (1.8-2.4); POTASSIUM SERUM 4.5 MMOL/L (3.5-5.1); TOTAL PROTEIN 7.2 G/DL (5.7-8.2)
[2023-01-15 20:09] LABS: CMV QUANT DNA PCR (PLASMA) Negative (Negative)
== END ==
LOC: M LAB 08:29
PROVIDERS: ATTEND Nurse Practitioner
DX: D84.9 Immunodeficiency, unspecified (principal); Z95.811 Presence of heart assist device

== ENCOUNTER → 2023-01-30 | Outpatient (CLI) | payer MEDICARE, MEDICAID ==
[~2023-01-30] MED LIST changes: +AMIO400T2 PO; -AMIO400T7 PO
[2023-01-30 09:18] LABS: BASO % 0.6 % (0.0-1.0); EOS # 0.1 10^3/uL (0.0-0.5); EOS % 1.9 % (0.0-3.0); HEMATOCRIT 38.8 % (36.0-47.0); HEMOGLOBIN 11.6 g/dl (12.0-15.5); LYMPH # 1.1 10^3/uL (1.5-5.0); LYMPH % 15.5 % (24.0-44.0); MEAN CORPUSCULAR HGB CONC 29.9 g/dl (32.0-36.5); MONO # 0.8 10^3/uL (0.0-0.8); MONO % 11.3 % (2.0-8.0); NEUTROPHILS # 4.8 10^3/uL (1.5-8.5); NEUTROPHILS % 69.4 % (36.0-66.0); PLATELET COUNT, AUTOMATED 234 10^3/uL (150-450); RED BLOOD COUNT 4.46 10^6/uL (4.00-5.40)
[2023-01-31 19:11] LABS: CMV QUANT DNA PCR (PLASMA) Negative (Negative)
== END ==
LOC: M LAB 08:14
PROVIDERS: ATTEND Nurse Practitioner
DX: D84.9 Immunodeficiency, unspecified (principal); Z95.811 Presence of heart assist device

== ENCOUNTER → 2023-02-26 | Outpatient (CLI) | payer MEDICARE, MEDICAID ==
[2023-02-26 09:12] LABS: BASO # 0.1 10^3/uL (0.0-0.2); BASO % 1.1 % (0.0-1.0); EOS # 0.1 10^3/uL (0.0-0.5); HEMATOCRIT 33.8 % (36.0-47.0); HEMOGLOBIN 10.6 g/dl (12.0-15.5); LYMPH # 0.9 10^3/uL (1.5-5.0); LYMPH % 16.8 % (24.0-44.0); MEAN CORPUSCULAR HEMOGLOBIN 28.3 pg (27.0-33.0); MEAN CORPUSCULAR HGB CONC 31.4 g/dl (32.0-36.5); MEAN CORPUSCULAR VOLUME 90.1 fl (80.0-96.0); MONO % 18.5 % (2.0-8.0); NEUTROPHILS # 3.3 10^3/uL (1.5-8.5); NEUTROPHILS % 60.5 % (36.0-66.0); PLATELET COUNT, AUTOMATED 228 10^3/uL (150-450); RED BLOOD COUNT 3.75 10^6/uL (4.00-5.40); WHITE BLOOD COUNT 5.5 10^3/uL (4.0-10.0)
[2023-02-26 09:18] LABS: ALBUMIN 3.7 G/DL (3.2-5.2); BILIRUBIN,TOTAL 0.4 MG/DL (0.3-1.2); CREATININE FOR GFR 2.17 MG/DL (0.55-1.30); GLOMERULAR FILTRATION RATE 24.7 (>51); MAGNESIUM LEVEL 1.6 MG/DL (1.8-2.4); POTASSIUM SERUM 4.4 MMOL/L (3.5-5.1); TOTAL PROTEIN 6.9 G/DL (5.7-8.2)
[2023-02-27 17:08] LABS: CMV QUANT DNA PCR (PLASMA) Negative (Negative)
== END ==
LOC: M LAB 08:10
PROVIDERS: ATTEND Nurse Practitioner
DX: Z95.811 Presence of heart assist device (principal)

== ENCOUNTER → 2023-04-23 | Outpatient (CLI) | payer MEDICARE, MEDICAID ==
[2023-04-23 09:41] LABS: BASO # 0.1 10^3/uL (0.0-0.2); BASO % 1.2 % (0.0-1.0); EOS # 0.2 10^3/uL (0.0-0.5); HEMATOCRIT 32.6 % (36.0-47.0); LYMPH # 0.9 10^3/uL (1.5-5.0); LYMPH % 12.4 % (24.0-44.0); MEAN CORPUSCULAR HEMOGLOBIN 31.2 pg (27.0-33.0); MEAN CORPUSCULAR HGB CONC 30.7 g/dl (32.0-36.5); MEAN CORPUSCULAR VOLUME 101.6 fl (80.0-96.0); MONO # 0.8 10^3/uL (0.0-0.8); NEUTROPHILS # 5.6 10^3/uL (1.5-8.5); NEUTROPHILS % 73.3 % (36.0-66.0); PLATELET COUNT, AUTOMATED 245 10^3/uL (150-450); RED BLOOD COUNT 3.21 10^6/uL (4.00-5.40); WHITE BLOOD COUNT 7.6 10^3/uL (4.0-10.0)
[2023-04-23 10:10] LABS: ALBUMIN 3.9 G/DL (3.2-5.2); BILIRUBIN,TOTAL 0.5 MG/DL (0.3-1.2); CREATININE FOR GFR 1.28 MG/DL (0.55-1.30); GLOMERULAR FILTRATION RATE 45.4 (>51); POTASSIUM SERUM 4.3 MMOL/L (3.5-5.1); TOTAL PROTEIN 6.8 G/DL (5.7-8.2)
[2023-04-28 02:07] LABS: CMV QUANT DNA PCR (PLASMA) Negative (Negative)
== END ==
LOC: M LAB 08:12
PROVIDERS: ATTEND Nurse Practitioner
DX: Z94.1 Heart transplant status (principal); D84.9 Immunodeficiency, unspecified; Z79.899 Other long term (current) drug therapy; Z91.89 Other specified personal risk factors, not elsewhere classified

== ENCOUNTER → 2023-05-07 | Outpatient (CLI) | payer MEDICARE, MEDICAID ==
[2023-05-07 10:12] LABS: BASO # 0.1 10^3/uL (0.0-0.2); BASO % 0.8 % (0.0-1.0); EOS # 0.1 10^3/uL (0.0-0.5); EOS % 2.1 % (0.0-3.0); HEMATOCRIT 35.7 % (36.0-47.0); HEMOGLOBIN 11.1 g/dl (12.0-15.5); LYMPH # 1.4 10^3/uL (1.5-5.0); LYMPH % 21.6 % (24.0-44.0); MEAN CORPUSCULAR HEMOGLOBIN 31.3 pg (27.0-33.0); MEAN CORPUSCULAR HGB CONC 31.1 g/dl (32.0-36.5); MEAN CORPUSCULAR VOLUME 100.6 fl (80.0-96.0); MONO # 0.7 10^3/uL (0.0-0.8); MONO % 10.1 % (2.0-8.0); NEUTROPHILS # 4.3 10^3/uL (1.5-8.5); NEUTROPHILS % 65.1 % (36.0-66.0); PLATELET COUNT, AUTOMATED 220 10^3/uL (150-450); RED BLOOD COUNT 3.55 10^6/uL (4.00-5.40); WHITE BLOOD COUNT 6.6 10^3/uL (4.0-10.0)
[2023-05-07 11:10] LABS: ALBUMIN 4.2 G/DL (3.2-5.2); BILIRUBIN,TOTAL 0.4 MG/DL (0.3-1.2); CALCIUM LEVEL 10.4 MG/DL (8.5-10.1); CHOLESTEROL RISK RATIO 3.22 (<5); CREATININE FOR GFR 1.66 MG/DL (0.55-1.30); FREE T4 0.94 NG/DL (0.89-1.76); GLOMERULAR FILTRATION RATE 33.7 (>51); HDL CHOLESTEROL 56.1 MG/DL (>40); LDL CHOLESTEROL 100.3 MG/DL (<100); MAGNESIUM LEVEL 1.8 MG/DL (1.8-2.4); NON-HDL-C 124.9 MG/DL; POTASSIUM SERUM 4.7 MMOL/L (3.5-5.1); THYROID STIMULATING HORMONE 1.72 uIU/ML (0.55-4.78); THYROXINE (T4) 7.4 UG/DL (4.5-10.9); TOTAL 25(OH) VITAMIN D 50.6 NG/ML (20.0-100.0); TOTAL PROTEIN 7.1 G/DL (5.7-8.2)
[2023-05-09 06:09] LABS: CMV QUANT DNA PCR (PLASMA) Negative (Negative)
== END ==
LOC: M LAB 08:13
PROVIDERS: ATTEND Nurse Practitioner
DX: D50.9 Iron deficiency anemia, unspecified (principal); D84.9 Immunodeficiency, unspecified; R78.5 Finding of other psychotropic drug in blood; N18.9 Chronic kidney disease, unspecified; E55.9 Vitamin D deficiency, unspecified; R73.9 Hyperglycemia, unspecified; Z94.1 Heart transplant status; Z79.899 Other long term (current) drug therapy

== ENCOUNTER → 2023-06-02 | Outpatient (CLI) | payer MEDICARE, MEDICAID ==
[2023-06-02 08:35] LABS: BASO # 0.1 10^3/uL (0.0-0.2); EOS # 0.2 10^3/uL (0.0-0.5); EOS % 2.7 % (0.0-3.0); HEMATOCRIT 37.2 % (36.0-47.0); HEMOGLOBIN 11.7 g/dl (12.0-15.5); LYMPH # 1.7 10^3/uL (1.5-5.0); LYMPH % 23.7 % (24.0-44.0); MEAN CORPUSCULAR HGB CONC 31.5 g/dl (32.0-36.5); MEAN CORPUSCULAR VOLUME 98.7 fl (80.0-96.0); MONO # 0.7 10^3/uL (0.0-0.8); MONO % 9.9 % (2.0-8.0); NEUTROPHILS # 4.4 10^3/uL (1.5-8.5); NEUTROPHILS % 62.4 % (36.0-66.0); PLATELET COUNT, AUTOMATED 206 10^3/uL (150-450); RED BLOOD COUNT 3.77 10^6/uL (4.00-5.40)
[2023-06-02 08:59] LABS: ALBUMIN 4.1 G/DL (3.2-5.2); BILIRUBIN,TOTAL 0.4 MG/DL (0.3-1.2); CALCIUM LEVEL 10.7 MG/DL (8.5-10.1); CREATININE FOR GFR 1.6 MG/DL (0.55-1.30); GLOMERULAR FILTRATION RATE 35.1 (>51); MAGNESIUM LEVEL 1.8 MG/DL (1.8-2.4); POTASSIUM SERUM 4.6 MMOL/L (3.5-5.1)
[2023-06-03 14:08] LABS: CMV QUANT DNA PCR (PLASMA) Negative (Negative)
== END ==
LOC: M LAB 07:55
PROVIDERS: ATTEND Nurse Practitioner
DX: Z94.1 Heart transplant status (principal); Z79.899 Other long term (current) drug therapy; D84.9 Immunodeficiency, unspecified; Z91.89 Other specified personal risk factors, not elsewhere classified

== ENCOUNTER → 2023-07-20 | Outpatient (CLI) | payer MEDICARE, MEDICAID ==
[2023-07-20 10:02] LABS: BASO # 0.1 10^3/uL (0.0-0.2); BASO % 0.6 % (0.0-1.0); EOS # 0.2 10^3/uL (0.0-0.5); EOS % 2.1 % (0.0-3.0); HEMATOCRIT 40.9 % (36.0-47.0); HEMOGLOBIN 13.2 g/dl (12.0-15.5); LYMPH # 1.7 10^3/uL (1.5-5.0); LYMPH % 16.2 % (24.0-44.0); MEAN CORPUSCULAR HGB CONC 32.3 g/dl (32.0-36.5); MEAN CORPUSCULAR VOLUME 99.3 fl (80.0-96.0); MONO # 0.7 10^3/uL (0.0-0.8); NEUTROPHILS # 7.9 10^3/uL (1.5-8.5); NEUTROPHILS % 73.9 % (36.0-66.0); PLATELET COUNT, AUTOMATED 238 10^3/uL (150-450); RED BLOOD COUNT 4.12 10^6/uL (4.00-5.40); WHITE BLOOD COUNT 10.6 10^3/uL (4.0-10.0)
[2023-07-20 10:53] LABS: ALBUMIN 4.3 G/DL (3.2-5.2); BILIRUBIN,TOTAL 0.5 MG/DL (0.3-1.2); CALCIUM LEVEL 10.2 MG/DL (8.5-10.1); CREATININE FOR GFR 1.25 MG/DL (0.55-1.30); GLOMERULAR FILTRATION RATE 46.7 (>51); MAGNESIUM LEVEL 1.8 MG/DL (1.8-2.4); POTASSIUM SERUM 4.3 MMOL/L (3.5-5.1); TOTAL PROTEIN 7.3 G/DL (5.7-8.2)
[2023-07-21 15:09] LABS: CMV QUANT DNA PCR (PLASMA) Negative (Negative)
== END ==
LOC: M LAB 08:27
PROVIDERS: ATTEND Nurse Practitioner
DX: Z94.1 Heart transplant status (principal); D84.9 Immunodeficiency, unspecified; Z79.899 Other long term (current) drug therapy; Z91.89 Other specified personal risk factors, not elsewhere classified

== ENCOUNTER → 2023-08-19 | Outpatient (CLI) | payer MEDICARE, MEDICAID ==
[2023-08-19 09:30] LABS: BASO # 0.1 10^3/uL (0.0-0.2); BASO % 0.8 % (0.0-1.0); EOS # 0.3 10^3/uL (0.0-0.5); EOS % 4.2 % (0.0-3.0); HEMATOCRIT 40.9 % (36.0-47.0); HEMOGLOBIN 13.1 g/dl (12.0-15.5); LYMPH # 1.4 10^3/uL (1.5-5.0); LYMPH % 19.4 % (24.0-44.0); MEAN CORPUSCULAR HEMOGLOBIN 31.1 pg (27.0-33.0); MEAN CORPUSCULAR VOLUME 97.1 fl (80.0-96.0); MONO # 0.7 10^3/uL (0.0-0.8); NEUTROPHILS # 4.9 10^3/uL (1.5-8.5); NEUTROPHILS % 66.3 % (36.0-66.0); PLATELET COUNT, AUTOMATED 224 10^3/uL (150-450); RED BLOOD COUNT 4.21 10^6/uL (4.00-5.40); WHITE BLOOD COUNT 7.3 10^3/uL (4.0-10.0)
[2023-08-19 09:54] LABS: ALKALINE PHOSPHATASE 99 U/L (46-116); ALT/SGPT 16 U/L (7.0-40); AST/SGOT < 8 U/L (<34); BILIRUBIN,TOTAL 0.6 MG/DL (0.3-1.2); BLOOD UREA NITROGEN 29 MG/DL (9-23); CARBON DIOXIDE LEVEL 29 MMOL/L (20-31); CHLORIDE LEVEL 111 MMOL/L (98-107); CREATININE FOR GFR 1.35 MG/DL (0.55-1.30); GLOMERULAR FILTRATION RATE 42.7 (>51); GLUCOSE, FASTING 94 MG/DL (60-100); POTASSIUM SERUM 4.5 MMOL/L (3.5-5.1); SODIUM LEVEL 141 MMOL/L (136-145); TOTAL PROTEIN 6.8 G/DL (5.7-8.2)
== END ==
LOC: M LAB 07:55
PROVIDERS: ATTEND Nurse Practitioner
DX: D84.9 Immunodeficiency, unspecified (principal); Z79.899 Other long term (current) drug therapy; Z94.1 Heart transplant status; Z91.89 Other specified personal risk factors, not elsewhere classified

== ENCOUNTER → 2023-09-16 | Outpatient (CLI) | payer MEDICARE, MEDICAID ==
[2023-09-16 09:29] LABS: BASO # 0.1 10^3/uL (0.0-0.2); BASO % 1.1 % (0.0-1.0); EOS # 0.6 10^3/uL (0.0-0.5); EOS % 9.1 % (0.0-3.0); HEMOGLOBIN 11.6 g/dl (12.0-15.5); LYMPH # 1.3 10^3/uL (1.5-5.0); LYMPH % 18.8 % (24.0-44.0); MEAN CORPUSCULAR HGB CONC 31.4 g/dl (32.0-36.5); MEAN CORPUSCULAR VOLUME 98.9 fl (80.0-96.0); MONO # 0.6 10^3/uL (0.0-0.8); MONO % 8.4 % (2.0-8.0); NEUTROPHILS # 4.4 10^3/uL (1.5-8.5); NEUTROPHILS % 62.5 % (36.0-66.0); PLATELET COUNT, AUTOMATED 202 10^3/uL (150-450); RED BLOOD COUNT 3.74 10^6/uL (4.00-5.40); WHITE BLOOD COUNT 7.1 10^3/uL (4.0-10.0)
[2023-09-16 09:54] LABS: ALBUMIN 4.2 G/DL (3.2-5.2); BILIRUBIN,TOTAL 0.7 MG/DL (0.3-1.2); CALCIUM LEVEL 9.9 MG/DL (8.5-10.1); CHOLESTEROL RISK RATIO 3.27 (<5); CREATININE FOR GFR 1.29 MG/DL (0.55-1.30); HDL CHOLESTEROL 58.6 MG/DL (>40); MAGNESIUM LEVEL 1.8 MG/DL (1.8-2.4); NON-HDL-C 133.4 MG/DL; POTASSIUM SERUM 4.5 MMOL/L (3.5-5.1); TOTAL PROTEIN 6.8 G/DL (5.7-8.2)
[2023-09-17 15:11] LABS: CMV QUANT DNA PCR (PLASMA) Negative (Negative)
== END ==
LOC: M LAB 08:03
PROVIDERS: ATTEND Nurse Practitioner
DX: Z94.1 Heart transplant status (principal); E78.5 Hyperlipidemia, unspecified; E83.42 Hypomagnesemia; Z91.89 Other specified personal risk factors, not elsewhere classified; D84.9 Immunodeficiency, unspecified; Z79.899 Other long term (current) drug therapy

== ENCOUNTER → 2023-10-22 | Outpatient (CLI) | payer MEDICAID, MEDICARE ==
[~2023-10-22] MED LIST changes: +DAPS100T22 PO; -DAPS10TA PO
[2023-10-22 09:17] LABS: BASO # 0.1 10^3/uL (0.0-0.2); BASO % 0.8 % (0.0-1.0); EOS # 0.2 10^3/uL (0.0-0.5); EOS % 3.3 % (0.0-3.0); HEMATOCRIT 39.5 % (36.0-47.0); HEMOGLOBIN 12.9 g/dl (12.0-15.5); LYMPH # 1.2 10^3/uL (1.5-5.0); LYMPH % 19.7 % (24.0-44.0); MEAN CORPUSCULAR HEMOGLOBIN 31.2 pg (27.0-33.0); MEAN CORPUSCULAR HGB CONC 32.7 g/dl (32.0-36.5); MEAN CORPUSCULAR VOLUME 95.6 fl (80.0-96.0); MONO # 0.5 10^3/uL (0.0-0.8); MONO % 8.3 % (2.0-8.0); NEUTROPHILS # 4.1 10^3/uL (1.5-8.5); NEUTROPHILS % 67.7 % (36.0-66.0); PLATELET COUNT, AUTOMATED 195 10^3/uL (150-450); RED BLOOD COUNT 4.13 10^6/uL (4.00-5.40)
[2023-10-22 09:46] LABS: ALBUMIN 4.3 G/DL (3.2-5.2); BILIRUBIN,TOTAL 0.7 MG/DL (0.3-1.2); CALCIUM LEVEL 10.2 MG/DL (8.3-10.6); CREATININE FOR GFR 1.32 MG/DL (0.55-1.30); GLOMERULAR FILTRATION RATE 43.7 (>45); MAGNESIUM LEVEL 1.8 MG/DL (1.8-2.4); POTASSIUM SERUM 4.5 MMOL/L (3.5-5.1); TOTAL PROTEIN 7.1 G/DL (5.7-8.2)
[2023-10-23 20:11] LABS: CMV QUANT DNA PCR (PLASMA) Negative (Negative)
== END ==
LOC: M LAB 08:16
PROVIDERS: ATTEND Nurse Practitioner
DX: D84.9 Immunodeficiency, unspecified (principal); Z94.1 Heart transplant status; Z79.899 Other long term (current) drug therapy; Z91.89 Other specified personal risk factors, not elsewhere classified

== ENCOUNTER → 2024-02-09 | Outpatient (CLI) | payer MEDICARE ==
[2024-02-09 09:55] LABS: BASO % 0.6 % (0.0-1.0); EOS # 0.1 10^3/uL (0.0-0.5); EOS % 2.1 % (0.0-3.0); HEMATOCRIT 42.9 % (36.0-47.0); HEMOGLOBIN 14.1 g/dl (12.0-15.5); MEAN CORPUSCULAR HEMOGLOBIN 31.1 pg (27.0-33.0); MEAN CORPUSCULAR HGB CONC 32.9 g/dl (32.0-36.5); MEAN CORPUSCULAR VOLUME 94.5 fl (80.0-96.0); MONO # 0.7 10^3/uL (0.0-0.8); MONO % 10.1 % (2.0-8.0); NEUTROPHILS # 3.7 10^3/uL (1.5-8.5); PLATELET COUNT, AUTOMATED 192 10^3/uL (150-450); RED BLOOD COUNT 4.54 10^6/uL (4.00-5.40); WHITE BLOOD COUNT 6.6 10^3/uL (4.0-10.0)
[2024-02-09 10:32] LABS: ALBUMIN 4.3 G/DL (3.2-5.2); BILIRUBIN,TOTAL 0.5 MG/DL (0.3-1.2); CALCIUM LEVEL 10.2 MG/DL (8.3-10.6); CREATININE FOR GFR 1.6 MG/DL (0.55-1.30); MAGNESIUM LEVEL 2.1 MG/DL (1.8-2.4); TOTAL PROTEIN 7.6 G/DL (5.7-8.2)
[2024-02-11 10:22] LABS: FK 506 (TACROLIMUS) 7.9 mcg/L (5.0-20.0)
[2024-02-12 11:28] LABS: CMV QUANT DNA PCR (PLASMA) Not Detected; CMV SOURCE Whole Blood; log10 CMV QN DNA P1 Not Detected log IU/mL
== END ==
LOC: M LAB 08:19
PROVIDERS: ATTEND Nurse Practitioner
DX: N18.9 Chronic kidney disease, unspecified (principal); Z94.1 Heart transplant status; Z91.89 Other specified personal risk factors, not elsewhere classified; Z79.899 Other long term (current) drug therapy

== ENCOUNTER → 2024-04-29 | Outpatient (CLI) | payer MEDICARE ==
[~2024-04-29] MED LIST changes: +FLUC-1 PO; -FLUC200T4 PO
[2024-04-29 08:52] LABS: BASO % 0.6 % (0.0-1.0); EOS # 0.1 10^3/uL (0.0-0.5); EOS % 1.5 % (0.0-3.0); HEMATOCRIT 43.7 % (36.0-47.0); HEMOGLOBIN 13.7 g/dl (12.0-15.5); LYMPH # 1.6 10^3/uL (1.5-5.0); LYMPH % 21.9 % (24.0-44.0); MEAN CORPUSCULAR HEMOGLOBIN 29.5 pg (27.0-33.0); MEAN CORPUSCULAR HGB CONC 31.4 g/dl (32.0-36.5); MEAN CORPUSCULAR VOLUME 94.2 fl (80.0-96.0); MONO # 0.6 10^3/uL (0.0-0.8); MONO % 8.3 % (2.0-8.0); NEUTROPHILS # 4.8 10^3/uL (1.5-8.5); NEUTROPHILS % 67.4 % (36.0-66.0); PLATELET COUNT, AUTOMATED 203 10^3/uL (150-450); RED BLOOD COUNT 4.64 10^6/uL (4.00-5.40); WHITE BLOOD COUNT 7.1 10^3/uL (4.0-10.0)
[2024-04-29 09:11] LABS: HEMOGLOBIN A1c 5.6 % (4.0-6.0)
[2024-04-29 09:19] LABS: ALBUMIN 4.3 G/DL (3.2-5.2); BILIRUBIN,TOTAL 0.4 MG/DL (0.3-1.2); CALCIUM LEVEL 10.5 MG/DL (8.3-10.6); CHOLESTEROL RISK RATIO 2.97 (<5); CREATININE FOR GFR 1.54 MG/DL (0.55-1.30); GLOMERULAR FILTRATION RATE 36.6 (>45); HDL CHOLESTEROL 84.1 MG/DL (>40); LDL CHOLESTEROL 149.3 MG/DL (<100); MAGNESIUM LEVEL 1.9 MG/DL (1.8-2.4); NON-HDL-C 165.9 MG/DL; POTASSIUM SERUM 5.1 MMOL/L (3.5-5.1); THYROID STIMULATING HORMONE 1.777 uIU/ML (0.55-4.78); TOTAL PROTEIN 7.5 G/DL (5.7-8.2)
[2024-04-29 09:21] LABS: FREE T4 1.17 NG/DL (0.89-1.76)
[2024-05-03 10:13] LABS: CMV QUANT DNA PCR (PLASMA) Not Detected; CMV SOURCE Whole Blood; log10 CMV QN DNA P1 Not Detected log IU/mL
[2024-05-03 13:52] LABS: EBV PCR QUANTITATIVE Not Detected copies/mL; EBV SOURCE Whole Blood; log10 EBV DNA QN PCR Not Detected Log cps/mL
[2024-05-03 17:22] LABS: CYSTATIN C 2.06 mg/L (0.52-1.14); CYSTATIN EGFR 28 (>=60)
== END ==
LOC: M LAB 07:56
PROVIDERS: ATTEND Nurse Practitioner
DX: Z79.899 Other long term (current) drug therapy (principal); Z94.1 Heart transplant status; Z91.89 Other specified personal risk factors, not elsewhere classified; Z13.1 Encounter for screening for diabetes mellitus; Z13.29 Encounter for screening for other suspected endocrine disorder; E83.42 Hypomagnesemia

== ENCOUNTER → 2024-09-19 | Outpatient (CLI) | payer MEDICARE ==
[~2024-09-19] MED LIST changes: +VANC125C13 PO; -VANC125C3 PO
[2024-09-19 09:50] LABS: BASO % 0.7 % (0.0-1.0); EOS # 0.1 10^3/uL (0.0-0.5); EOS % 1.7 % (0.0-3.0); HEMATOCRIT 38.9 % (36.0-47.0); HEMOGLOBIN 12.3 g/dl (12.0-15.5); LYMPH # 1.1 10^3/uL (1.5-5.0); MEAN CORPUSCULAR HEMOGLOBIN 30.1 pg (27.0-33.0); MEAN CORPUSCULAR HGB CONC 31.6 g/dl (32.0-36.5); MEAN CORPUSCULAR VOLUME 95.3 fl (80.0-96.0); MONO # 0.7 10^3/uL (0.0-0.8); MONO % 11.9 % (2.0-8.0); NEUTROPHILS % 66.5 % (36.0-66.0); PLATELET COUNT, AUTOMATED 188 10^3/uL (150-450); RED BLOOD COUNT 4.08 10^6/uL (4.00-5.40)
[2024-09-19 10:11] LABS: ALBUMIN 3.9 G/DL (3.2-5.2); BILIRUBIN,TOTAL 0.4 MG/DL (0.3-1.2); CREATININE FOR GFR 1.34 MG/DL (0.55-1.30); MAGNESIUM LEVEL 1.9 MG/DL (1.8-2.4); POTASSIUM SERUM 4.7 MMOL/L (3.5-5.1); TOTAL PROTEIN 6.8 G/DL (5.7-8.2)
[2024-09-21 10:08] LABS: FK 506 (TACROLIMUS) 4.8 mcg/L (5.0-20.0)
[2024-09-21 16:57] LABS: CMV QUANT DNA PCR (PLASMA) Not Detected; CMV SOURCE Whole Blood; log10 CMV QN DNA P1 Not Detected log IU/mL
== END ==
LOC: M LAB 08:13
PROVIDERS: ATTEND Nurse Practitioner
DX: Z94.1 Heart transplant status (principal)

== ENCOUNTER → 2025-02-09 | Outpatient (CLI) | payer MEDICARE ==
[2025-02-09 09:49] LABS: BASO # 0.1 10^3/uL (0.0-0.2); BASO % 0.9 % (0.0-1.0); EOS # 0.1 10^3/uL (0.0-0.5); EOS % 2.0 % (0.0-3.0); LYMPH # 1.4 10^3/uL (1.5-5.0); LYMPH % 26.2 % (24.0-44.0); MONO # 0.5 10^3/uL (0.0-0.8); MONO % 9.9 % (2.0-8.0); NEUTROPHILS # 3.3 10^3/uL (1.5-8.5); NEUTROPHILS % 60.8 % (36.0-66.0); PLATELET COUNT, AUTOMATED 183 10^3/uL (150-450)
[2025-02-09 10:19] LABS: ALT/SGPT 16.0 U/L (7.0-40); AST/SGOT 16.0 U/L (<34); CALCIUM LEVEL 10.1 MG/DL (8.3-10.6); CARBON DIOXIDE LEVEL 27.0 MMOL/L (20-31); CHLORIDE LEVEL 107.0 MMOL/L (98-107); CREATININE FOR GFR 1.3 MG/DL (0.55-1.30); GLOMERULAR FILTRATION RATE 46.8 (>45); MAGNESIUM LEVEL 2.0 MG/DL (1.8-2.4); POTASSIUM SERUM 5.3 MMOL/L (3.5-5.1); SODIUM LEVEL 144.0 MMOL/L (136-145)
[2025-02-11 07:57] LABS: FK 506 (TACROLIMUS) 4.9 mcg/L (5.0-20.0)
[2025-02-12 17:43] LABS: CMV QUANT DNA PCR (PLASMA) Not Detected; log10 CMV QN DNA P1 Not Detected log IU/mL
== END ==
LOC: M LAB 08:44
PROVIDERS: ATTEND Nurse Practitioner
DX: Z94.1 Heart transplant status (principal); Z91.89 Other specified personal risk factors, not elsewhere classified; Z79.899 Other long term (current) drug therapy; D84.9 Immunodeficiency, unspecified; E83.42 Hypomagnesemia